=== PATIENT | female | born 1945 | race Caucasian/White ===

== ENCOUNTER → 2016-08-24 | Outpatient (CLI) | payer MEDICARE ==
--- NOTE | 2016-08-27 09:10 | MM ---
Reason for exam: screening (asymptomatic). Last mammogram was performed 1 year and 3 months ago. History: Patient is postmenopausal and is nulliparous. Took hormonal contraceptives for 5 years beginning at age 25. Took estrogen for 2 years beginning at age 54. Took progesterone for 2 years beginning at age 54. Physical Findings: A clinical breast exam by your physician is recommended on an annual basis and results should be correlated with mammographic findings. MG Screening Mammo w CAD Bilateral CC and MLO view(s) were taken. Prior study comparison: May 13, 2015, bilateral MG screening mammo w CAD. March 02, 2013, bilateral digital screening mammo w/CAD. The breast tissue is heterogeneously dense. This may lower the sensitivity of mammography. There is no discrete abnormality. No significant changes when compared with prior studies. ASSESSMENT: Negative, BI-RAD 1 RECOMMENDATION: Routine screening mammogram of both breasts in 1 year.
== END | disposition home or self-care (01) ==
LOC: RADMAMWWP 10:52
PROVIDERS: ATTEND Family Medicine
DX: Z12.31 Encounter for screening mammogram for malignant neoplasm of breast (principal)

== ENCOUNTER → 2017-11-19 | Outpatient (CLI) | payer MEDICARE ==
--- NOTE | 2017-11-20 06:05 | CT ---
EXAMINATION TYPE: CT chest wo con DATE OF EXAM: 11/19/2017 COMPARISON: NONE HISTORY: 72-year-old female Enlarged lymph nodes on cxr. TECHNIQUE: Contiguous axial scanning of the chest without IV contrast. Coronal and sagittal reconstru ctions performed. CT DLP: 159.1 mGycm Automated exposure control for dose reduction was used. FINDINGS: The heart is normal size without pericardial effusion. Aorta is normal caliber with bovine configuration to the aortic arch and mild atherosclerotic arch ca lcifications. 4.3 cm large hypodense nodule right lower thyroid gland and 1.7 cm in the left lobe of the thyroid gl and. There is right supraclavicular lymphadenopathy measuring up to 1.0 cm, numerous right axillary lympha denopathy measuring up to 1.4 cm, lesser degree of left axillary lymphadenopathy measuring 1.2 cm, an d mediastinal lymphadenopathy. This measures 2.7 cm in the prevascular space, 3.5 x 4.5 cm along the right paratracheal region, and 1.9 cm in the subcarinal region. Numerous additional lymph nodes are p resent. Incidental small lipoma deep to the left pectoralis major measuring 3.8 x 0.9 cm. Evaluation of the lung shows no consolidation or pleural effusion. There is a 5 mm anterior right mid lung pulmonary nodule axial image 31 and a 6 mm subpleural right middle lobe pulmonary nodule axial i mage 33. Visualized upper abdomen shows an indeterminate 1.4 cm hypodense lesion right lobe of the liver. Enla rged 1 cm right retrocrural lymph node. Splenomegaly at 18.0 cm. There is mild diffuse anasarca type changes noted. Bones: No osseous destructive process. IMPRESSION: 1. RIGHT SUPRACLAVICULAR, BILATERAL AXILLARY, MEDIASTINAL, AND RIGHT RETROCRURAL LYMPHADENOPATHY. LYM PH NODES MEASURE UP TO 4.5 X 3.5 CM ALONG THE RIGHT PARATRACHEAL REGION. 2. LARGE HYPODENSE LESIONS WITHIN THE RIGHT AND LEFT LOBES OF THE THYROID GLAND MEASURING 4.3 AND 1.7 CM, RESPECTIVELY. 3. SPLENOMEGALY AT 18.0 CM. A 1.4 CM RIGHT LIVER LOBE LESION IS INDETERMINATE. 4. CORRELATE FOR LYMPHOMA OR METASTATIC DISEASE. THYROID ULTRASOUND CAN FURTHER ASSESS THE THYROID GL AND FOR POSSIBLE LYMPHOMATOUS INVOLVEMENT OR SEPARATE LESIONS. 5. A COUPLE PULMONARY NODULES ON THE RIGHT MEASURING 6 AND 5 MM CAN BE REASSESSED AT THE PATIENT'S FO LLOW-UP.
== END | disposition home or self-care (01) ==
LOC: RADCTMAIN 17:21
PROVIDERS: ATTEND Family Medicine
DX: R59.0 Localized enlarged lymph nodes (principal); R91.8 Other nonspecific abnormal finding of lung field
CPT/HCPCS: 71250

== ENCOUNTER 2017-12-05 11:25 | Day surgery (SDC) | payer MEDICARE ==
[2017-12-04 14:26] VITALS: BMI 23.6
[~2017-12-05 11:25] MED LIST: HEPARIN SODIUM,PORCINE 5,000 UNIT/ML 1 ML VIAL SQ ONE; HYDROmorphone 0.5 MG/0.5 ML SYRINGE IVP PRN; LACTATED RINGERS 1,000 ML IV SCH; MORPHINE SULFATE 4 MG/ML SYRINGE IV PRN; ONDANSETRON 4 MG/2 ML VIAL IVP PRN; Pre Op ABX Message 1 EACH MISC MISCELLANE ONE
[2017-12-05 12:08] LABS: Glucose,Whole Blood 106 mg/dL (75-99)
[2017-12-05] MEDS ORDERED: PROPOFOL 10 MG/ML 20 ML VIAL IV ONE (12:57)
[2017-12-05] MEDS ORDERED: SUCCINYLCHOLINE CHLORIDE 100 MG/5 ML SYR IV ONE (12:57)
[2017-12-05] MEDS ORDERED: fentaNYL (PF) 50 MCG/ML 2 ML AMP ONE (12:57)
[2017-12-05] MEDS ORDERED: BUPIVACAINE (PF) 0.25% 30 ML VIAL SQ ONE ×2 (13:23)
[2017-12-05 14:20] VITALS: TEMP 97
[2017-12-05 14:26] LABS: Glucose,Whole Blood 108 mg/dL (75-99)
[2017-12-05] MEDS ORDERED: traMADol 50 MG TAB PO PRN (14:28)
[2017-12-05] MEDS ORDERED: NALOXONE 0.4 MG/ML 1 ML VIAL IV PRN (14:28)
--- NOTE | 2017-12-05 14:32 | P.OP ---
Date of Procedure: 12/05/17 Procedure(s) Performed: PREOPERATIVE DIAGNOSIS: Lymphadenopathy, anemia, GI bleed POSTOPERATIVE DIAGNOSIS: Lymphadenopathy, mild gastritis, normal colonoscopy PROCEDURE: 1. Right axillary lymph node dissection 2. EGD with biopsy 3. Colonoscopy ANESTHESIA: Gen. SURGEON: Raheel Fletcher M.D. SPECIMENS: Lymph node, antrum ENDOSCOPIC PROCEDURE: The patient was on the operating room table in the supine position. She was placed under general anesthesia. The right axilla was prepped and draped in the usual sterile fashion. The palpable lymph node was identified. A small horizontal incision was made. Dissection through the subcutaneous tissues took place using electrocautery. The enlarged lymph node was removed. Small lymphatics and vessels were clipped using the Ligaclip. The subcutaneous tissues were closed using 3-0 Vicryl sutures. The skin was closed using 4-0 Monocryl sutures. Steri-Strips and sterile dressings were applied. The patient was then placed in the left decubitus position. The Olympus gastroscope was inserted into the oropharynx and passed under direct visualization to the region of the third portion of the duodenum. From that point the scope was slowly withdrawn inspecting all surfaces carefully. There were no neoplastic inflammatory or polypoid lesions throughout the duodenum. The pylorus was widely patent. The stomach was carefully inspected. There was mild gastritis present. A biopsy of the antrum took place to rule out H. pylori. Retroflexion revealed a normal hiatus. The esophagus was then carefully examined. There were no neoplastic inflammatory or polypoid lesions throughout the visualized esophagus. The patient was kept on the endoscopy table in the left decubitus position. The Olympus colonoscope was inserted into the anus and passed under direct visualization to the base of the cecum. The appendiceal orifice was visualized. From that point the scope was slowly withdrawn inspecting all surfaces carefully. There were no neoplastic inflammatory or polypoid lesions throughout the cecum, ascending, transverse, descending, sigmoid and rectum. There was no diverticulosis noted. Digital rectal examination was normal. The patient was taken to the recovery room in stable condition per anesthesia guidelines. RECOMMENDATIONS: Await biopsy results. Follow-up in the office 1 week.
[2017-12-05 15:14] VITALS: RESP 18
[2017-12-05 15:30] VITALS: BP 104/67; PULSE 92
--- NOTE | 2017-12-16 11:44 | CDI ---
Outpatient Documentation Clarification Form Date: 12/16/17 CDS/Website Optimization Strategist Name: Prudence Contreras Phone: If any questions, call Niurka Seals Abstract Searcher at [phone] Patient Name: Rosetta Garcia Admit Date: 12/05/17 Discharge Date: 12/05/17 ATTENTION: The [facility] Coding Staff appreciate your assistance in clarifying documentation. Please respond to the clarification below the line at the bottom and electronically sign. The [facility] Coding staff will review the response and follow-up if needed. Please note: Queries are made part of the Legal Health Record. If you have any questions, please contact the Abstract Searcher. Dear Dr. Fletcher, What is the cause of the GI bleed? Thank you for your kind consideration. If I do not state specifically what the etiology of the patient's bleeding is during the endoscopy report then that implies that the etiology is unclear MTDD
== END 2017-12-05 16:05 | disposition home or self-care (01) ==
LOC: OR 11:25
PROVIDERS: ATTEND Surgery
DX: C81.14 Nodular sclerosis Hodgkin lymphoma, lymph nodes of axilla and upper limb (principal); K92.2 Gastrointestinal hemorrhage, unspecified; K29.50 Unspecified chronic gastritis without bleeding; L40.9 Psoriasis, unspecified; E11.319 Type 2 diabetes mellitus with unspecified diabetic retinopathy without macular edema; H35.30 Unspecified macular degeneration; M19.90 Unspecified osteoarthritis, unspecified site; Z79.84 Long term (current) use of oral hypoglycemic drugs; Z79.899 Other long term (current) drug therapy; Z88.1 Allergy status to other antibiotic agents; F17.210 Nicotine dependence, cigarettes, uncomplicated
CPT/HCPCS: 38525; 88305; 84132; 88342; 88307; 88341; 45378; 43239; J1644; J2405; J3010; J0330; J2704

== ENCOUNTER → 2017-12-07 | Outpatient (CLI) | payer MEDICARE ==
--- NOTE | 2017-12-07 17:04 | PE ---
EXAMINATION TYPE: PET CT fusion skull to thigh DATE OF EXAM: 12/07/2017 COMPARISON: CT chest November 19, 2017 HISTORY: Lymphoma initially diagnosed by biopsy right axilla December 05. TECHNIQUE: Following the intravenous administration of 9.05 mCi of F-18 FDG, whole body images are p erformed from the skull base to the midthigh. Images are reviewed on the computer in the coronal, ax ial, and sagittal planes. Reconstructed rotating images are created on independent workstation and r eviewed on the computer. A noncontrast CT is performed in conjunction with the PET scan. SCAN: Initial Scan FINDINGS: SKULL BASE AND NECK: There are multiple enlarged right-sided hypermetabolic lymph nodes, for referen ce there is anterior 1.3 x 1.2 cm lymph node at level of hyoid bone axial image 44 with max SUV of 5. 21. There are additional subcentimeter mildly hypermetabolic left-sided neck lymph nodes anteriorly a nd posteriorly, max SUV is 2.5 axial image 31. There is hypermetabolic right-sided supraclavicular ad enopathy, max SUV is 3.8 axial image 56. CHEST, MEDIASTINUM, AND HILAR REGION: There is air and surgical clips from excisional biopsy right ax illary region. There are mildly hypermetabolic bilateral axillary lymph nodes , for reference is 1.4 x 1.0 cm lymph node axial image 73 with max SUV of 2.62. For reference there is 10 by 8mm hypermetabo lic lymph node inferior left axilla axial image 82 with max SUV of 3.73. There are hypermetabolic thoracic lymph nodes including bilateral hilar levels axial image 95, as wel l as marked involvement of the anterior superior mediastinum and paratracheal region, for reference t here is confluent paratracheal adenopathy measuring roughly 3.3 x 2.3 cm axial image 78 with max SUV of 4.53. ABDOMEN AND PELVIS: Marked splenomegaly is seen. Liver is also felt mildly enlarged. No distinct susp icious focal hypermetabolic increase uptake is present. There is suspicious groin adenopathy bilaterally, right larger than left, largest lymph node superior ly measures 2.5 to 1.7 cm axial image 205, max SUV is 5.17. There is abnormal right external iliac ch ain adenopathy at this level, max SUV is 6.48. There is abnormal left external iliac chain lymph node , for reference axial image 205 there is 2.2 x 1.4 cm lymph node with max SUV of 4.42. OSSEOUS STRUCTURES: Diffuse osseous involvement is felt present as there are multifocal areas of hype rmetabolic uptake throughout the bones including entire spine both humeri and femurs. For reference m arked uptake at level of the clivus axial image 17 is seen, max SUV is 8.2. OTHER CT: There is 3.0 cm right thyroid nodule without hypermetabolic uptake axial image 59. Consider dedicated thyroid ultrasound follow-up to further evaluate. Additional scattered smaller thyroid nod ules are present. There is left basilar linear scarring or atelectasis. There is nonspecific 1.6 cm low dense lesion right liver axial image 122 posterior aspect. There are 2 large rim calcified gallstones in gallbladder. There is prominent lobulated uterus with calcifications suggesting fibroid type uterus. IMPRESSION: There is lymphoma or neoplastic involvement above and below diaphragm with prominent invo lvement of neck, thorax, and pelvis noted. Hepatosplenomegaly is seen. Diffuse osseous involvement is felt present. Relative sparing of abdomen noted.
== END ==
LOC: RADPETMAIN 13:04
PROVIDERS: ATTEND Internal Medicine Hematology & Oncology
DX: C85.94 Non-Hodgkin lymphoma, unspecified, lymph nodes of axilla and upper limb (principal); R16.2 Hepatomegaly with splenomegaly, not elsewhere classified
CPT/HCPCS: 78815; A9552

== ENCOUNTER 2017-12-19 10:44 | Day surgery (SDC) | payer MEDICARE ==
[~2017-12-19 10:44] MED LIST changes: -HYDROmorphone 0.5 MG/0.5 ML SYRINGE IVP PRN; -LACTATED RINGERS 1,000 ML IV SCH; -MORPHINE SULFATE 4 MG/ML SYRINGE IV PRN; -ONDANSETRON 4 MG/2 ML VIAL IVP PRN
[2017-12-19 11:08] VITALS: RESP 16; TEMP 98.2
[2017-12-19] MEDS ORDERED: DEXAMETHASONE SOD PHOSPHATE 10 MG/ML 1 ML VIAL IV ONE (11:10)
[2017-12-19] MEDS ORDERED: LACTATED RINGERS 1,000 ML IV SCH (11:10)
[2017-12-19] MEDS ORDERED: MORPHINE SULFATE 4 MG/ML SYRINGE IV PRN (11:10)
[2017-12-19] MEDS ORDERED: ONDANSETRON ODT 4 MG TAB PO ONE (11:10)
[2017-12-19] MEDS ORDERED: LIDOCAINE 1% 20 ML VIAL (10MG/ML) FOR IV START INTRADERMA ONE ×2 (11:40)
[2017-12-19 11:41] LABS: Glucose,Whole Blood 105 mg/dL (75-99)
[2017-12-19] MEDS ORDERED: KETAMINE 10 MG/ML 20 ML VIAL ONE (12:40)
[2017-12-19] MEDS ORDERED: PROPOFOL 10 MG/ML 20 ML VIAL IV ONE (12:40)
[2017-12-19] MEDS ORDERED: fentaNYL (PF) 50 MCG/ML 2 ML AMP ONE (12:40)
[2017-12-19] MEDS ORDERED: MIDAZOLAM 2 MG/2 ML VIAL ONE (12:40)
--- NOTE | 2017-12-19 13:14 | P.GSHP ---
History of Present Illness H&P Date: 12/19/17 Chief Complaint: Lymphoma 72-year-old female with recent diagnosis of Hodgkin's lymphoma. Underwent bone marrow biopsy today. Here now for Port-A-Cath placement. We recently removed a right axillary lymph node. At the time of her postoperative visit last week we discussed Port-A-Cath placement. Past Medical History Past Medical History: Diabetes Mellitus, Osteoarthritis (OA), Skin Disorder Additional Past Medical History / Comment(s): swollen lymphnode rt axilla and neck,anemia-recent iron infusion on 12-03-17 and schedule for repeated iron infusion on 12-09-17, recent tooth infection, DRY MACULAR DEGENERATION., HX OF COLON POLYPS,psoriasis History of Any Multi-Drug Resistant Organisms: None Reported Date of last positivie culture/infection: 03/13/17 MDRO Source:: finger Past Surgical History: Appendectomy Additional Past Surgical History / Comment(s): APPENDECTOMY (CHILD), D & C, COLONOSCOPY Past Anesthesia/Blood Transfusion Reactions: No Reported Reaction, Family History of Problems w/ Anesthesia Additional Past Anesthesia/Blood Transfusion Reaction / Comment(s): SISTER-PONV Past Psychological History: No Psychological Hx Reported Smoking Status: Current every day smoker Past Alcohol Use History: None Reported Additional Past Alcohol Use History / Comment(s): SMOKES < 1PPD. SMOKING SINCE 20 YEARS OLD (52 YEARS) Past Drug Use History: None Reported - Past Family History Mother Family Medical History: No Reported History Medications and Allergies Home Medications Medication Instructions Recorded Confirmed Type metFORMIN HCL [Glucophage] 500 mg PO AC-BID 03/01/16 12/19/17 History ALPRAZolam [Xanax] 0.5 mg PO TID PRN 12/04/17 12/19/17 History Cholecalciferol [Vitamin D3] 1,000 unit PO BID 12/04/17 12/19/17 History Clobetasol Propionate [Temovate 1 applic TOPICAL BID 12/04/17 12/19/17 History 0.05% Oint] Ferrous Sulfate [Feosol] 325 mg PO DAILY 12/04/17 12/19/17 History Vit C/E/Zn/Coppr/Lutein/Zeaxan 1 each PO BID 12/04/17 12/19/17 History [Preservision Areds 2 Softgel] Acetaminophen with Codeine 1 tab PO Q4H #10 tab 12/05/17 12/19/17 Rx [Tylenol w/codeine #3] Allergies Allergy/AdvReac Type Severity Reaction Status Date / Time cephalexin monohydrate AdvReac Unknown YEAST Verified 12/19/17 11:18 [From Keflex] INFECTION Surgical - Exam Vital Signs Temp Pulse Resp BP Pulse Ox 98.2 F 72 16 99/59 100 12/19/17 11:07 12/19/17 11:07 12/19/17 11:07 12/19/17 11:07 12/19/17 11:07 Physical exam: General: Well-developed, well-nourished HEENT: Normocephalic, sclerae nonicteric Abdomen: Nontender, nondistended Extremities: No edema Neuro: Alert and oriented Results - Labs Abnormal Lab Results - Last 24 Hours (Table) 12/19/17 Range/Units 11:39 POC Glucose (mg/dL) 105 H (75-99) mg/dL Assessment and Plan (1) Lymphoma Narrative/Plan: Will proceed with Port-A-Cath placement at this time. Current Visit: Yes Status: Acute Code(s): C85.90 - NON-HODGKIN LYMPHOMA, UNSPECIFIED, UNSPECIFIED SITE SNOMED Code(s): 697761968
[2017-12-19 13:17] LABS: Anisocytosis Slight; Basophils % (A) 0 %; Eosinophils % (A) 0 %; HCT 31.1 % (34.0-46.0); HGB 9.7 gm/dL (11.4-16.0); Hypochromasia Slight; Lymphocytes # (A) 0.8 k/uL (1.0-4.8); Lymphocytes % (A) 8 %; MCH 23.3 pg (25.0-35.0); MCHC 31.2 g/dL (31.0-37.0); MCV 74.5 fL (80.0-100.0); Mean Platelet Volume 6.6; Microcytosis Moderate; Monocytes # (A) 0.5 k/uL (0-1.0); Monocytes % (A) 5 %; Neutrophils # (A) 8.4 k/uL (1.3-7.7); Neutrophils % (A) 85 %; Platelet Count 394 k/uL (150-450); RBC 4.18 m/uL (3.80-5.40); RDW 18.2 % (11.5-15.5); WBC 9.8 k/uL (3.8-10.6)
[2017-12-19] MEDS ORDERED: LIDOCAINE 1% INJ 10MG/ML (20 ML MDV) SQ ONE ×2 (13:29)
[2017-12-19] MEDS ORDERED: HYDROcodone/APAP 5-325MG 1 EACH TAB PO PRN (13:47)
[2017-12-19] MEDS ORDERED: NALOXONE 0.4 MG/ML 1 ML VIAL IV PRN (13:47)
--- NOTE | 2017-12-19 13:49 | P.OP ---
Date of Procedure: 12/19/17 Procedure(s) Performed: PREOPERATIVE DIAGNOSIS: Lymphoma POSTOPERATIVE DIAGNOSIS: Same PROCEDURE: Port-A-Cath placement SURGEON: Chance EBL: Minimal ANESTHESIA: Sedation COMPLICATIONS: None OPERATIVE PROCEDURE: Patient was brought and placed on the operative table in the supine position. The patient was sedated per anesthesia that time. The chest and neck were prepped and draped in usual sterile fashion. The ultrasound probe was used to identify the location of the right internal jugular vein. The skin was localized with lidocaine. The Seldinger needle was advanced into the IJ under ultrasound guidance. The wire was advanced through the needle under fluoroscopic guidance into the superior vena cava. A port pocket was created in the right infraclavicular location. The catheter was tunneled from the wire entrance site to the port pocket. The port was then connected to the catheter. The dilator introducer was threaded over the guidewire. The guidewire and dilator were then removed. The catheter was advanced through the introducer and introducer was then removed. The tip was seen to be in the right atrial junction. Port was flushed with both saline and a Hep-Lock solution. There was good flow both in and out of the port. The port was sutured in underlying tissues using 3-0 silk sutures. The subcutaneous tissues were reapproximated using 3-0 Vicryl sutures and the skin at both locations using 4-0 Monocryl sutures. Steri-Strips and sterile dressings then applied. DISPOSITION: Stable to recovery room
--- NOTE | 2017-12-19 14:04 | FL ---
Fluoroscopy HISTORY: Port-A-Cath insertion 15 seconds fluoroscopy time supplied to the referring clinician. 1 intraoperative C-arm image docume nts the procedure. See dictated report from general surgery.
[2017-12-19 14:10] LABS: Glucose,Whole Blood 133 mg/dL (75-99)
--- NOTE | 2017-12-19 14:10 | XR ---
EXAMINATION TYPE: XR chest 1V confirm line [facility] DATE OF EXAM: 12/19/2017 COMPARISON: NONE HISTORY: Status post central venous catheter placement, lymphoma TECHNIQUE: Single frontal view of the chest is obtained. FINDINGS: Patient is rotated. There is been placement of a right jugular central venous catheter, dis willian tip is overlying superior vena cava. No evident pneumothorax or pleural effusion. Lung volumes ar e low. Surgical clips present in the right axilla. IMPRESSION: No evident complication status post central venous catheter placement.
[2017-12-19 14:47] VITALS: BP 105/68; PULSE 79
--- NOTE | 2017-12-19 15:04 | PCN ---
PROCEDURE NOTE DATE OF PROCEDURE: 12/19/2017. PROCEDURE: Bone marrow aspirate and biopsy. SITE: Right iliac crest. ANESTHESIA: Systemic sedation. PREOP DIAGNOSIS: Hodgkin disease. POSTOP DIAGNOSIS: Hodgkin disease. DETAILS: Utilizing sterile technique, the skin overlying the left iliac crest was prepared with Betadine and alcohol. After adequate sterile draping, systemic sedation and local anesthesia with 1% lidocaine, size 11 4-inch Jamshidi needle was utilized to access the periosteum with ease and 2 attempts to obtain aspirate failed. We obtained however 1 cm crest bone core biopsies. The patient tolerated the procedure well. There was no immediate complication. TOTAL BLOOD LOSS: Less than 1 mL. RESULTS: Pending. MMODL / IJN: [id number] /
== END 2017-12-19 15:10 | disposition home or self-care (01) ==
LOC: OR 10:44
PROVIDERS: ATTEND Surgery
DX: C81.96 Hodgkin lymphoma, unspecified, intrapelvic lymph nodes (principal); E11.9 Type 2 diabetes mellitus without complications; M19.90 Unspecified osteoarthritis, unspecified site; L40.9 Psoriasis, unspecified; F17.210 Nicotine dependence, cigarettes, uncomplicated; H35.30 Unspecified macular degeneration; Z88.1 Allergy status to other antibiotic agents; Z79.84 Long term (current) use of oral hypoglycemic drugs; Z79.899 Other long term (current) drug therapy; Z85.72 Personal history of non-Hodgkin lymphomas
CPT/HCPCS: 85025; 77001; 38222; 36561; C1788; J2250; J1644; J1100; J2001; J3010; J2704

== ENCOUNTER → 2017-12-24 | Outpatient (CLI) | payer MEDICARE ==
--- NOTE | 2017-12-24 11:38 | ECHOF ---
Referral Reason:C81.98 Hodgkin lymphoma, Z01.818 Pre-chemo MEASUREMENTS -------- HEIGHT: 156.2 cm WEIGHT: 54.9 kg BP: 115/75 RVIDd: 3.1 cm (< 3.3) IVSd: 1.0 cm (0.6 - 1.1) LVIDd: 4.9 cm (3.9 - 5.3) LVPWd: 0.9 cm (0.6 - 1.1) IVSs: 1.5 cm LVIDs: 3.2 cm LVPWs: 1.4 cm LA Diam: 3.5 cm (2.7 - 3.8) LAESV Index (A-L): 22.63 ml/m Ao Diam: 2.8 cm (2.0 - 3.7) AV Cusp: 2.0 cm (1.5 - 2.6) MV EXCURSION: 17.570 mm (> 18.000) MV EF SLOPE: 157 mm/s (70 - 150) EPSS: 0.7 cm MV E Heath: 0.88 m/s MV DecT: 208 ms MV A Heath: 1.02 m/s MV E/A Ratio: 0.87 RAP: 5.00 mmHg RVSP: 28.98 mmHg FINDINGS -------- Sinus rhythm. This was a technically good study. The left ventricular size is normal. Left ventricular wall thickness is normal. Overall left vent ricular systolic function is normal with, an EF between 55 - 60 %. The right ventricle is normal in size. Normal LA size by volume 22+/-6 ml/m2. The right atrium is normal in size. Small echogenic mass was seen in the right atrium. TERRI is recom mended for better clarification. The aortic valve is trileaflet and appears structurally normal. There is trace mitral regurgitation. Mild tricuspid regurgitation present. Right ventricular systolic pressure is normal at < 35 mmHg. Trace/mild (physiologic) pulmonic regurgitation. The aortic root size is normal. Normal inferior vena cava with normal inspiratory collapse consistent with estimated right atrial pre ssure of 5 mmHg. There is no pericardial effusion. CONCLUSIONS -------- 1. Sinus rhythm. 2. This was a technically good study. 3. The left ventricular size is normal. 4. Left ventricular wall thickness is normal. 5. Overall left ventricular systolic function is normal with, an EF between 55 - 60 %. 6. The right ventricle is normal in size. 7. Normal LA size by volume 22+/-6 ml/m2. 8. The right atrium is normal in size. 9. Small echogenic mass was seen in the right atrium. TERRI is recommended for better clarification. 10. The aortic valve is trileaflet and appears structurally normal. 11. There is trace mitral regurgitation. 12. Mild tricuspid regurgitation present. 13. Right ventricular systolic pressure is normal at < 35 mmHg. 14. Trace/mild (physiologic) pulmonic regurgitation. 15. The aortic root size is normal. 16. Normal inferior vena cava with normal inspiratory collapse consistent with estimated right atrial pressure of 5 mmHg. 17. There is no pericardial effusion. CLINIC SUPERVISOR: Albina Wynne RDCS
== END | disposition home or self-care (01) ==
LOC: RADECHMAIN 10:18
PROVIDERS: ATTEND Internal Medicine Hematology & Oncology
DX: Z01.818 Encounter for other preprocedural examination (principal); C81.90 Hodgkin lymphoma, unspecified, unspecified site; L98.9 Disorder of the skin and subcutaneous tissue, unspecified; I08.1 Rheumatic disorders of both mitral and tricuspid valves
CPT/HCPCS: 93306

== ENCOUNTER 2018-01-19 00:02 | Inpatient (IN) | payer MEDICARE ==
--- NOTE | 2018-01-19 00:13 | ED ---
Altered Mental Status HPI - General Chief Complaint: Altered Mental Status Stated Complaint: Altered Mental Status Time Seen by Provider: 01/19/18 00:05 Source: patient, EMS Mode of arrival: EMS Limitations: altered mental status - History of Present Illness Initial Comments: This patient is 72-year-old woman who is brought in by EMS after she had an episode in which she became unresponsive. The patient was not able to provide any history she did not remember much prior to arriving at the hospital. The patient's described that she had some rigidity and was making some sounds as if she was gagging or gurgling. He states it looked like her eyes had rolled back. The activated EMS, and then the family was attempting to provide CPR for the patient. It was reported that one certified surgical first assistant arrived the patient was attempting to move while family was attempting to provide CPR. When EMS arrived, they did have a rhythm on the monitor and detectable vital signs. When I interview the patient, she is denying chest pain. She states that her breathing seems adequate. She is oriented to person and place but does not of the date at her arrival. MD Complaint: altered mental status -: minutes(s) Severity: severe Context: cancer - Related Data Home Medications Medication Instructions Recorded Confirmed metFORMIN HCL [Glucophage] 500 mg PO AC-BID 03/01/16 01/19/18 ALPRAZolam [Xanax] 0.5 mg PO TID PRN 12/04/17 01/19/18 Cholecalciferol [Vitamin D3] 1,000 unit PO BID 12/04/17 01/19/18 Ferrous Sulfate [Feosol] 325 mg PO DAILY 12/04/17 01/19/18 Vit C/E/Zn/Coppr/Lutein/Zeaxan 1 each PO BID 12/04/17 01/19/18 [Preservision Areds 2 Softgel] Prochlorperazine [Compazine] 10 mg PO Q6H 01/19/18 01/19/18 Allergies Allergy/AdvReac Type Severity Reaction Status Date / Time cephalexin monohydrate AdvReac Unknown YEAST Verified 01/19/18 12:08 [From Keflex] INFECTION Review of Systems ROS Statement: Those systems with pertinent positive or pertinent negative responses have been documented in the HPI. ROS Other: All systems not noted in ROS Statement are negative. Constitutional: Denies: fever, weakness Eyes: Denies: vision change Respiratory: Denies: cough, dyspnea Cardiovascular: Denies: chest pain, orthopnea, edema Gastrointestinal: Denies: abdominal pain, nausea, vomiting, diarrhea Musculoskeletal: Denies: back pain Skin: Denies: rash Neurological: Reports: other (Possible seizure). Denies: headache, weakness, numbness Past Medical History Past Medical History: Diabetes Mellitus, Osteoarthritis (OA), Skin Disorder Additional Past Medical History / Comment(s): swollen lymphnode rt axilla and neck,anemia-recent iron infusion on 12-03-17 and schedule for repeated iron infusion on 12-09-17, recent tooth infection, DRY MACULAR DEGENERATION., HX OF COLON POLYPS,psoriasis, hodgkins lymphoma History of Any Multi-Drug Resistant Organisms: None Reported Date of last positivie culture/infection: 03/13/17 MDRO Source:: finger Past Surgical History: Appendectomy Additional Past Surgical History / Comment(s): APPENDECTOMY (CHILD), D & C, COLONOSCOPY Past Anesthesia/Blood Transfusion Reactions: No Reported Reaction, Family History of Problems w/ Anesthesia Additional Past Anesthesia/Blood Transfusion Reaction / Comment(s): SISTER-PONV Past Psychological History: Depression Smoking Status: Former smoker Past Alcohol Use History: None Reported Past Drug Use History: None Reported - Past Family History Mother Family Medical History: No Reported History General Exam Limitations: altered mental status General appearance: alert, in no apparent distress Head exam: Present: atraumatic, normocephalic Eye exam: Present: normal appearance, PERRL, EOMI. Absent: scleral icterus, conjunctival injection, nystagmus ENT exam: Present: normal exam Neck exam: Present: normal inspection, full ROM. Absent: tenderness, meningismus Respiratory exam: Present: normal lung sounds bilaterally. Absent: respiratory distress, wheezes, rales, rhonchi, stridor Cardiovascular Exam: Present: regular rate, normal rhythm, normal heart sounds. Absent: systolic murmur, diastolic murmur, rubs, gallop GI/Abdominal exam: Present: soft. Absent: distended, tenderness, guarding, rebound Extremities exam: Present: normal inspection, normal capillary refill. Absent: pedal edema, calf tenderness Back exam: Present: normal inspection. Absent: CVA tenderness (R), CVA tenderness (L) Neurological exam: Present: alert, CN II-XII intact. Absent: oriented X3 ( Patient is oriented to person and place not able to state the date however.), motor sensory deficit Skin exam: Present: warm, dry, intact, normal color. Absent: rash Course Vital Signs 01/19/18 01/19/18 01/19/18 00:04 00:48 02:10 Pulse Rate 66 67 63 Respiratory 18 18 18 Rate Blood Pressure 145/83 162/77 152/70 O2 Sat by Pulse 99 100 100 Oximetry 01/19/18 03:50 Pulse Rate 74 Respiratory 18 Rate Blood Pressure 151/75 O2 Sat by Pulse 100 Oximetry Medical Decision Making - Medical Decision Making Patient is 72-year-old woman who is currently receiving treatment for lymphoma and brought after she had become unresponsive at home. At this point it appears that the patient has possibly had a seizure. Will be admitted for further workup and neurology consultation as well. - Lab Data Result diagrams: 01/19/18 00:10 01/19/18 00:10 Lab Results 01/19/18 01/19/18 01/19/18 Range/Units 00:10 00:10 00:10 WBC 3.8 (3.8-10.6) k/uL RBC 5.12 (3.80-5.40) m/uL Hgb 12.4 (11.4-16.0) gm/dL Hct 38.4 (34.0-46.0) % MCV 75.0 L (80.0-100.0) fL MCH 24.3 L (25.0-35.0) pg MCHC 32.3 (31.0-37.0) g/dL RDW 19.5 H (11.5-15.5) % Plt Count 208 (150-450) k/uL Neutrophils % 57 % Lymphocytes % 33 % Monocytes % 3 % Eosinophils % 4 % Basophils % 0 % Neutrophils # 2.1 (1.3-7.7) k/uL Lymphocytes # 1.2 (1.0-4.8) k/uL Monocytes # 0.1 (0-1.0) k/uL Eosinophils # 0.2 (0-0.7) k/uL Basophils # 0.0 (0-0.2) k/uL Anisocytosis Slight Microcytosis Moderate PT (9.0-12.0) sec INR (<1.2) APTT (22.0-30.0) sec Sodium 130 L (137-145) mmol/L Potassium 3.8 (3.5-5.1) mmol/L Chloride 95 L (98-107) mmol/L Carbon Dioxide 21 L (22-30) mmol/L Anion Gap 14 mmol/L BUN 12 (7-17) mg/dL Creatinine 0.30 L (0.52-1.04) mg/dL Est GFR (CKD-EPI)AfAm >90 (>60 ml/min/1.73 sqM) Est GFR (CKD-EPI)NonAf >90 (>60 ml/min/1.73 sqM) Glucose 188 H (74-99) mg/dL POC Glucose (mg/dL) (75-99) mg/dL POC Glu Flask Maker ID Lactic Ac Sepsis Rflx Plasma Lactic Acid Rio (0.7-2.0) mmol/L Calcium 8.9 (8.4-10.2) mg/dL Total Bilirubin 0.6 (0.2-1.3) mg/dL AST 30 (14-36) U/L ALT 45 (9-52) U/L Alkaline Phosphatase 93 (38-126) U/L Total Creatine Kinase <20 L (30-135) U/L CK-MB (CK-2) 0.6 (0.0-2.4) ng/mL CK-MB (CK-2) Rel Index Troponin I <0.012 (0.000-0.034) ng/mL Total Protein 7.3 (6.3-8.2) g/dL Albumin 3.9 (3.5-5.0) g/dL Urine Color Urine Appearance (Clear) Urine pH (5.0-8.0) Ur Specific Neffs (1.001-1.035) Urine Protein (Negative) Urine Glucose (UA) (Negative) Urine Ketones (Negative) Urine Blood (Negative) Urine Nitrite (Negative) Urine Bilirubin (Negative) Urine Urobilinogen (<2.0) mg/dL Ur Leukocyte Esterase (Negative) Urine RBC (0-5) /hpf Urine WBC (0-5) /hpf Amorphous Sediment (None) /hpf Hyaline Casts (0-2) /lpf Urine Mucus (None) /hpf Urine Opiates Screen (NotDetected) Ur Oxycodone Screen (NotDetected) Urine Methadone Screen (NotDetected) Ur Propoxyphene Screen (NotDetected) Ur Barbiturates Screen (NotDetected) U Tricyclic Antidepress (NotDetected) Ur Phencyclidine Scrn (NotDetected) Ur Amphetamines Screen (NotDetected) U Methamphetamines Scrn (NotDetected) U Benzodiazepines Scrn (NotDetected) Urine Cocaine Screen (NotDetected) U Marijuana (THC) Screen (NotDetected) 01/19/18 01/19/18 01/19/18 Range/Units 00:10 00:10 00:11 WBC (3.8-10.6) k/uL RBC (3.80-5.40) m/uL Hgb (11.4-16.0) gm/dL Hct (34.0-46.0) % MCV (80.0-100.0) fL MCH (25.0-35.0) pg MCHC (31.0-37.0) g/dL RDW (11.5-15.5) % Plt Count (150-450) k/uL Neutrophils % % Lymphocytes % % Monocytes % % Eosinophils % % Basophils % % Neutrophils # (1.3-7.7) k/uL Lymphocytes # (1.0-4.8) k/uL Monocytes # (0-1.0) k/uL Eosinophils # (0-0.7) k/uL Basophils # (0-0.2) k/uL Anisocytosis Microcytosis PT 12.3 H (9.0-12.0) sec INR 1.3 H (<1.2) APTT 24.9 (22.0-30.0) sec Sodium (137-145) mmol/L Potassium (3.5-5.1) mmol/L Chloride (98-107) mmol/L Carbon Dioxide (22-30) mmol/L Anion Gap mmol/L BUN (7-17) mg/dL Creatinine (0.52-1.04) mg/dL Est GFR (CKD-EPI)AfAm (>60 ml/min/1.73 sqM) Est GFR (CKD-EPI)NonAf (>60 ml/min/1.73 sqM) Glucose (74-99) mg/dL POC Glucose (mg/dL) 194 H (75-99) mg/dL POC Glu Flask Maker ID Angy Oreilly Lactic Ac Sepsis Rflx Plasma Lactic Acid Rio 2.1 H* (0.7-2.0) mmol/L Calcium (8.4-10.2) mg/dL Total Bilirubin (0.2-1.3) mg/dL AST (14-36) U/L ALT (9-52) U/L Alkaline Phosphatase (38-126) U/L Total Creatine Kinase (30-135) U/L CK-MB (CK-2) (0.0-2.4) ng/mL CK-MB (CK-2) Rel Index Troponin I (0.000-0.034) ng/mL Total Protein (6.3-8.2) g/dL Albumin (3.5-5.0) g/dL Urine Color Urine Appearance (Clear) Urine pH (5.0-8.0) Ur Specific Neffs (1.001-1.035) Urine Protein (Negative) Urine Glucose (UA) (Negative) Urine Ketones (Negative) Urine Blood (Negative) Urine Nitrite (Negative) Urine Bilirubin (Negative) Urine Urobilinogen (<2.0) mg/dL Ur Leukocyte Esterase (Negative) Urine RBC (0-5) /hpf Urine WBC (0-5) /hpf Amorphous Sediment (None) /hpf Hyaline Casts (0-2) /lpf Urine Mucus (None) /hpf Urine Opiates Screen (NotDetected) Ur Oxycodone Screen (NotDetected) Urine Methadone Screen (NotDetected) Ur Propoxyphene Screen (NotDetected) Ur Barbiturates Screen (NotDetected) U Tricyclic Antidepress (NotDetected) Ur Phencyclidine Scrn (NotDetected) Ur Amphetamines Screen (NotDetected) U Methamphetamines Scrn (NotDetected) U Benzodiazepines Scrn (NotDetected) Urine Cocaine Screen (NotDetected) U Marijuana (THC) Screen (NotDetected) 01/19/18 01/19/18 Range/Units 00:44 00:56 WBC (3.8-10.6) k/uL RBC (3.80-5.40) m/uL Hgb (11.4-16.0) gm/dL Hct (34.0-46.0) % MCV (80.0-100.0) fL MCH (25.0-35.0) pg MCHC (31.0-37.0) g/dL RDW (11.5-15.5) % Plt Count (150-450) k/uL Neutrophils % % Lymphocytes % % Monocytes % % Eosinophils % % Basophils % % Neutrophils # (1.3-7.7) k/uL Lymphocytes # (1.0-4.8) k/uL Monocytes # (0-1.0) k/uL Eosinophils # (0-0.7) k/uL Basophils # (0-0.2) k/uL Anisocytosis Microcytosis PT (9.0-12.0) sec INR (<1.2) APTT (22.0-30.0) sec Sodium (137-145) mmol/L Potassium (3.5-5.1) mmol/L Chloride (98-107) mmol/L Carbon Dioxide (22-30) mmol/L Anion Gap mmol/L BUN (7-17) mg/dL Creatinine (0.52-1.04) mg/dL Est GFR (CKD-EPI)AfAm (>60 ml/min/1.73 sqM) Est GFR (CKD-EPI)NonAf (>60 ml/min/1.73 sqM) Glucose (74-99) mg/dL POC Glucose (mg/dL) (75-99) mg/dL POC Glu Flask Maker ID Lactic Ac Sepsis Rflx Y Plasma Lactic Acid Rio (0.7-2.0) mmol/L Calcium (8.4-10.2) mg/dL Total Bilirubin (0.2-1.3) mg/dL AST (14-36) U/L ALT (9-52) U/L Alkaline Phosphatase (38-126) U/L Total Creatine Kinase (30-135) U/L CK-MB (CK-2) (0.0-2.4) ng/mL CK-MB (CK-2) Rel Index Troponin I (0.000-0.034) ng/mL Total Protein (6.3-8.2) g/dL Albumin (3.5-5.0) g/dL Urine Color Yellow Urine Appearance Clear (Clear) Urine pH 7.0 (5.0-8.0) Ur Specific [place]ffs 1.018 (1.001-1.035) Urine Protein 1+ H (Negative) Urine Glucose (UA) Negative (Negative) Urine Ketones Trace H (Negative) Urine Blood Negative (Negative) Urine Nitrite Negative (Negative) Urine Bilirubin Negative (Negative) Urine Urobilinogen <2.0 (<2.0) mg/dL Ur Leukocyte Esterase Negative (Negative) Urine RBC 2 (0-5) /hpf Urine WBC 3 (0-5) /hpf Amorphous Sediment Rare H (None) /hpf Hyaline Casts 1 (0-2) /lpf Urine Mucus Rare H (None) /hpf Urine Opiates Screen Not Detected (NotDetected) Ur Oxycodone Screen Not Detected (NotDetected) Urine Methadone Screen Not Detected (NotDetected) Ur Propoxyphene Screen Not Detected (NotDetected) Ur Barbiturates Screen Not Detected (NotDetected) U Tricyclic Antidepress Not Detected (NotDetected) Ur Phencyclidine Scrn Not Detected (NotDetected) Ur Amphetamines Screen Not Detected (NotDetected) U Methamphetamines Scrn Not Detected (NotDetected) U Benzodiazepines Scrn Not Detected (NotDetected) Urine Cocaine Screen Not Detected (NotDetected) U Marijuana (THC) Screen Not Detected (NotDetected) - EKG Data -: EKG Interpreted by Ca EKG shows normal: sinus rhythm, axis (Normal), intervals (ID interval 128 ms, normal. QTc 521 ms, normal. QRS duration is prolonged at 130 ms.), QRS complexes (Right bundle-branch block), ST-T waves (Normal) Rate: normal (Rate 68 bpm) Disposition Clinical Impression: Altered mental status, New onset seizure Disposition: ADMITTED IP TO THIS [facility] Condition: Serious
[2018-01-19 00:16] LABS: Glucose,Whole Blood 194 mg/dL (75-99)
[2018-01-19] MEDS ORDERED: SODIUM CHLORIDE 0.9% 1,000 ML IV ONE (00:25)
--- NOTE | 2018-01-19 00:34 | XR ---
EXAM: XR Chest, 1 View CLINICAL HISTORY: ITS.REASON XR Reason: Pain TECHNIQUE: Frontal view of the chest. COMPARISON: 12/19/17 IMPRESSION: No acute cardiopulmonary process. Right central line terminates at the cavoatrial junction.
[2018-01-19] MEDS ORDERED: ONDANSETRON 4 MG/2 ML VIAL IVP STA (00:35)
[2018-01-19 00:45] LABS: Anisocytosis Slight; Basophils % (A) 0 %; Eosinophils # (A) 0.2 k/uL (0-0.7); Eosinophils % (A) 4 %; HCT 38.4 % (34.0-46.0); HGB 12.4 gm/dL (11.4-16.0); Lymphocytes # (A) 1.2 k/uL (1.0-4.8); Lymphocytes % (A) 33 %; MCH 24.3 pg (25.0-35.0); MCHC 32.3 g/dL (31.0-37.0); Mean Platelet Volume 6.4; Microcytosis Moderate; Monocytes # (A) 0.1 k/uL (0-1.0); Monocytes % (A) 3 %; Neutrophils # (A) 2.1 k/uL (1.3-7.7); Neutrophils % (A) 57 %; Platelet Count 208 k/uL (150-450); RBC 5.12 m/uL (3.80-5.40); RDW 19.5 % (11.5-15.5); WBC 3.8 k/uL (3.8-10.6)
[2018-01-19 00:47] LABS: ALT 45 U/L (9-52); AST 30 U/L (14-36); Albumin 3.9 g/dL (3.5-5.0); Alkaline Phosphatase 93 U/L (38-126); Anion Gap 14 mmol/L; Blood Urea Nitrogen 12 mg/dL (7-17); Calcium 8.9 mg/dL (8.4-10.2); Carbon Dioxide 21 mmol/L (22-30); Chloride 95 mmol/L (98-107); Glucose 188 mg/dL (74-99); Potassium 3.8 mmol/L (3.5-5.1); Sodium 130 mmol/L (137-145); Total Bilirubin 0.6 mg/dL (0.2-1.3); Total Protein 7.3 g/dL (6.3-8.2)
[2018-01-19 00:49] LABS: INR 1.3 (<1.2); Partial Thromboplastin Time 24.9 sec (22.0-30.0); Prothrombin Time 12.3 sec (9.0-12.0)
[2018-01-19 01:00] LABS: Creatine Kinase <20 U/L (30-135)
[2018-01-19 01:13] LABS: Creatine Kinase MB 0.6 ng/mL (0.0-2.4); Troponin I <0.012 ng/mL (0.000-0.034)
[2018-01-19 01:25] LABS: Amorphous Sediment,Urine Rare /hpf; Appearance,Urine Clear (Clear); Bilirubin,Urine Negative (Negative); Blood,Urine Negative (Negative); Color,Urine Yellow; Glucose,Urine (UA) Negative (Negative); Hyaline Casts,Urine 1 /lpf (0-2); Ketones,Urine Trace (Negative); Leukocyte Esterase,Urine Negative (Negative); Mucus,Urine Rare /hpf; Nitrite,Urine Negative (Negative); Protein,Urine 1+ (Negative); RBC,Urine 2 /hpf (0-5); Specific Gravity,Urine 1.018 (1.001-1.035); Urobilinogen,Urine <2.0 mg/dL (<2.0); WBC,Urine 3 /hpf (0-5)
--- NOTE | 2018-01-19 01:36 | CT ---
EXAM: CT Head Without Intravenous Contrast CLINICAL HISTORY: ITS.REASON CT Reason: altered mental status TECHNIQUE: Axial computed tomography images of the head/brain without intravenous contrast. CTDI is 60 mGy and DLP is 1173 mGy-cm. This CT exam was performed using one or more of the following dose reduction techniques: automated exposure control, adjustment of the mA and/or kV according to patient size, and/or use of iterative reconstruction technique. COMPARISON: No relevant prior studies available. FINDINGS: Brain: No hemorrhage, large hypodensity, or mass effect. Ventricles: No hydrocephalus. Mild cerebral volume loss which appears more frontal dominant. Bones/joints: Unremarkable. Soft tissues: Unremarkable. Sinuses: Unremarkable. Mastoid air cells: Clear. IMPRESSION: No acute hemorrhage, hydrocephalus, or mass effect. Mild cerebral volume loss, more prominent in the frontal brain.
[2018-01-19 01:40] LABS: Amphetamine Screen,Urine Not Detected (NotDetected); Barbiturate Screen,Urine Not Detected (NotDetected); Benzodiazepines Screen,Urine Not Detected (NotDetected); Cocaine Screen,Urine Not Detected (NotDetected); Methadone Screen, Urine Not Detected (NotDetected); Opiate Screen,Urine Not Detected (NotDetected); Oxycodone Screen, Urine Not Detected (NotDetected); Phencyclidine Screen,Urine Not Detected (NotDetected); Tricyclic Antidepressant,Urine Not Detected (NotDetected); Urn Cannabinoid Scrn Not Detected (NotDetected)
[2018-01-19] MEDS ORDERED: NALOXONE 0.4 MG/ML 1 ML VIAL IV PRN (03:09)
[2018-01-19] MEDS ORDERED: IBUPROFEN 400 MG TAB PO PRN (03:09)
[2018-01-19] MEDS: SODIUM CHLORIDE 0.9% 1,000 ML IV SCH ×2 (04:33→11:47)
[2018-01-19 05:55] LABS: Glucose,Whole Blood 108 mg/dL (75-99)
[2018-01-19] MEDS ORDERED: ALPRAZolam 0.5 MG TAB PO PRN (07:58)
[2018-01-19] MEDS: PROCHLORPERAZINE 10 MG TAB PO SCH ×3 (08:35→21:14)
[2018-01-19] MEDS: ACETAMINOPHEN TAB 325 MG TAB PO PRN ×2 (08:40→14:59)
[2018-01-19] MEDS: VIT A,C & E-LUTEIN-MINERALS 1 EACH TAB PO SCH ×2 (08:41→21:14)
[2018-01-19] MEDS: CHOLECALCIFEROL 1,000 UNIT TAB PO SCH ×2 (08:41→21:14)
[2018-01-19] MEDS ORDERED: LORazepam 2 MG/ML INJ IV PRN (11:05)
[2018-01-19 11:45] LABS: Glucose,Whole Blood 173 mg/dL (75-99)
[2018-01-19] MEDS: KETOROLAC 30 MG/ML 1 ML VIAL IVP PRN ×2 (11:50→17:34)
[2018-01-19] MEDS: FERROUS SULFATE 325 MG TAB PO SCH (11:52)
[2018-01-19] MEDS: INSULIN ASPART 100 UNIT/ML 1 ML 10 ML VIAL SQ SCH ×3 (12:11→21:22)
--- NOTE | 2018-01-19 12:40 | P.CONS ---
History of Present Illness - Reason for Consult Consult date: 01/19/18 Seizure, lymphoma Requesting physician: Zohra Velasquez - Chief Complaint Seizure - History of Present Illness Ms. Naik is a very pleasant 72 yo female with newly diagnosed HL, started on ABVD s/p cycle 1, who is here for new onset seizure. She states she went for her last treatment as scheduled on 01/15/18, and was doing well, without nausea, vomiting, fevers, night sweats, further weight loss, weakness, bleeding, or other complaints. She then had a seizure and her had to do CPR on her until EMS came as she was not breathing. She is not sure if the breathing or seizure occurred first. She was brought to the ED where she had CT head that was negative. She was altered at that time. She was admitted for further care, and we were consulted for further management of her lymphoma. Currently she feels much better however she is having a lot of rib pain from the CPR. No headaches or fevers. No vomiting or other neurologic complaints. No prior history of seizures. Review of Systems All systems: negative Constitutional: Reports as per HPI Past Medical History Past Medical History: Diabetes Mellitus, Osteoarthritis (OA), Skin Disorder Additional Past Medical History / Comment(s): swollen lymphnode rt axilla and neck,anemia-recent iron infusion on 12-03-17 and schedule for repeated iron infusion on 12-09-17, recent tooth infection, DRY MACULAR DEGENERATION., HX OF COLON POLYPS,psoriasis, hodgkins lymphoma History of Any Multi-Drug Resistant Organisms: None Reported Year Discovered:: 03/13/17 MDRO Source:: finger Past Surgical History: Appendectomy Additional Past Surgical History / Comment(s): APPENDECTOMY (CHILD), D & C, COLONOSCOPY Past Anesthesia/Blood Transfusion Reactions: No Reported Reaction, Family History of Problems w/ Anesthesia Additional Past Anesthesia/Blood Transfusion Reaction / Comm: SISTER-MOISESV Past Psychological History: Depression Smoking Status: Former smoker Past Alcohol Use History: None Reported Additional Past Alcohol Use History / Comment(s): SMOKED < 1PPD, quit in December 2017. SMOKING SINCE 20 YEARS OLD (52 YEARS) Past Drug Use History: None Reported - Past Family History Mother Family Medical History: No Reported History Medications and Allergies Home Medications Medication Instructions Recorded Confirmed Type metFORMIN HCL [Glucophage] 500 mg PO AC-BID 03/01/16 01/19/18 History ALPRAZolam [Xanax] 0.5 mg PO TID PRN 12/04/17 01/19/18 History Cholecalciferol [Vitamin D3] 1,000 unit PO BID 12/04/17 01/19/18 History Ferrous Sulfate [Feosol] 325 mg PO DAILY 12/04/17 01/19/18 History Vit C/E/Zn/Coppr/Lutein/Zeaxan 1 each PO BID 12/04/17 01/19/18 History [Preservision Areds 2 Softgel] Prochlorperazine [Compazine] 10 mg PO Q6H 01/19/18 01/19/18 History Allergies Allergy/AdvReac Type Severity Reaction Status Date / Time cephalexin monohydrate AdvReac Unknown YEAST Verified 01/19/18 12:08 [From Keflex] INFECTION Physical Exam Vitals: Vital Signs Temp Pulse Pulse Resp BP BP Pulse Ox 01/19/18 11:45 97 F L 86 16 126/69 99 01/19/18 08:57 100 01/19/18 08:30 97.5 F L 81 16 133/77 100 01/19/18 04:41 96.8 F L 75 16 135/75 100 01/19/18 03:50 74 18 151/75 100 01/19/18 02:10 63 18 152/70 100 01/19/18 00:48 67 18 162/77 100 01/19/18 00:04 66 18 145/83 99 Intake and Output 01/18/18 01/19/18 01/19/18 22:59 06:59 14:59 Intake Total 10 230 Balance 10 230 Intake: IV 10 0.9 10 Oral 230 Other: Voiding Method Toilet Weight 57.8 kg General: In no acute distress. HEENT: No conjunctival pallor or scleral icterus. Mucosa moist. Neck: Neck supple. Lymph: No cervical/supraclavicular LAD. Lungs: CTA-B without wheezing or rhonchi. Bilateral rib tenderness. Heart: RRR. No LE edema. Abdomen: Soft, nontender, nondistended, with positive bowel sounds. MSK: 4/4 strength in all 4 extremities. Neuro: Alert and oriented 3. No obvious gross neurologic deficits. Skin: No jaundice or rash. Psych: Appropriate affect. Results CBC & Chem 7: 06/03/18 00:10 01/19/18 00:10 Labs: Abnormal Lab Results - Last 24 Hours (Table) 01/19/18 01/19/18 01/19/18 Range/Units 00:10 00:10 00:10 MCV 75.0 L (80.0-100.0) fL MCH 24.3 L (25.0-35.0) pg RDW 19.5 H (11.5-15.5) % PT (9.0-12.0) sec INR (<1.2) Sodium 130 L (137-145) mmol/L Chloride 95 L (98-107) mmol/L Carbon Dioxide 21 L (22-30) mmol/L Creatinine 0.30 L (0.52-1.04) mg/dL Glucose 188 H (74-99) mg/dL POC Glucose (mg/dL) (75-99) mg/dL Plasma Lactic Acid Rio (0.7-2.0) mmol/L Total Creatine Kinase <20 L (30-135) U/L Urine Protein (Negative) Urine Ketones (Negative) Amorphous Sediment (None) /hpf Urine Mucus (None) /hpf 01/19/18 01/19/18 01/19/18 Range/Units 00:10 00:10 00:11 MCV (80.0-100.0) fL MCH (25.0-35.0) pg RDW (11.5-15.5) % PT 12.3 H (9.0-12.0) sec INR 1.3 H (<1.2) Sodium (137-145) mmol/L Chloride (98-107) mmol/L Carbon Dioxide (22-30) mmol/L Creatinine (0.52-1.04) mg/dL Glucose (74-99) mg/dL POC Glucose (mg/dL) 194 H (75-99) mg/dL Plasma Lactic Acid Rio 2.1 H* (0.7-2.0) mmol/L Total Creatine Kinase (30-135) U/L Urine Protein (Negative) Urine Ketones (Negative) Amorphous Sediment (None) /hpf Urine Mucus (None) /hpf 01/19/18 01/19/18 01/19/18 Range/Units 00:44 05:54 11:44 MCV (80.0-100.0) fL MCH (25.0-35.0) pg RDW (11.5-15.5) % PT (9.0-12.0) sec INR (<1.2) Sodium (137-145) mmol/L Chloride (98-107) mmol/L Carbon Dioxide (22-30) mmol/L Creatinine (0.52-1.04) mg/dL Glucose (74-99) mg/dL POC Glucose (mg/dL) 108 H 173 H (75-99) mg/dL Plasma Lactic Acid Rio (0.7-2.0) mmol/L Total Creatine Kinase (30-135) U/L Urine Protein 1+ H (Negative) Urine Ketones Trace H (Negative) Amorphous Sediment Rare H (None) /hpf Urine Mucus Rare H (None) /hpf CT Scan - head: report reviewed Assessment and Plan Assessment: 1. Seizure 2. ?Need for CPR, respiratory arrest? 3. Hodgkin's lymphoma, on active chemotherapy Plan: Ms. Naik is a very pleasant 72 yo female with newly diagnosed HL, recently started on chemotherapy with ABVD, last chemo on 01/15/18, who was doing well and presents with sudden onset new seizures and possible respiratory arrest needing CPR by her per pt. Her new onset seizures is very concerning. Unclear if she had respiratory arrest first, which could have triggered the seizure or seizure first. CT head negative in the ED. Unclear etiology of her seizure. No prior history. Vinblastine can cause neurotoxicity, including seizures. Would need to rule out other possible etiologies however. She would need MRI brain to rule out brain lesions that could be contributing. Otherwise, neurology consult and outpatient follow up with Dr. Rouse before any further treatment is administered. Discussed with pt in detail and she is agreeable to the plan. All questions answered.
--- NOTE | 2018-01-19 13:02 | P.HPIM ---
History of Present Illness 72-year-old pleasant female with you done in diagnosed with Hodgkin's lymphoma completed 2 cycles of ABVD chemotherapy came in with complaints of 20 clinic activity witnessed by the and he felt the patient was apneic as well because of which she started doing CPR when EMS arrived patient has pulse and respirations. Patient doesn't remember the episode patient denied any loss of bowel or bladder continence. Patient lost consciousness briefly for a few minutes and woke up in the ambulance and was bit confused unsure how long the post ictal confusion lasted. Patient denied and tongue biting. EEG was ordered and neurology was consulted. Patient is alert and oriented 3 completely appropriate not confused. Patient is comparing of rib pain from CPR. Patient denied any other symptoms which will be detailed review of systems Review of Systems REVIEW OF SYSTEMS: CONSTITUTIONAL: No fever, no malaise, no fatigue. HEENT: No recent visual problems or hearing problems. Denied any sore throat. CARDIOVASCULAR: No chest pain, orthopnea, PND, no palpitations, no syncope. PULMONARY: No shortness of breath, no cough, no hemoptysis. GASTROINTESTINAL: No diarrhea, no nausea, no vomiting, no abdominal pain. Normoactive bowel sounds. NEUROLOGICAL: No headaches, no weakness, no numbness. HEMATOLOGICAL: Denies any bleeding or petechiae. GENITOURINARY: Denies any burning micturition, frequency, or urgency. MUSCULOSKELETAL/RHEUMATOLOGICAL: Denies any joint pain, swelling, or any muscle pain. ENDOCRINE: Denies any polyuria or polydipsia. The rest of the 14-point review of systems is negative. Past Medical History Past Medical History: Diabetes Mellitus, Osteoarthritis (OA), Skin Disorder Additional Past Medical History / Comment(s): swollen lymphnode rt axilla and neck,anemia-recent iron infusion on 12-03-17 and schedule for repeated iron infusion on 12-09-17, recent tooth infection, DRY MACULAR DEGENERATION., HX OF COLON POLYPS,psoriasis, hodgkins lymphoma History of Any Multi-Drug Resistant Organisms: None Reported Date of last positivie culture/infection: 03/13/17 MDRO Source:: finger Past Surgical History: Appendectomy Additional Past Surgical History / Comment(s): APPENDECTOMY (CHILD), D & C, COLONOSCOPY Past Anesthesia/Blood Transfusion Reactions: No Reported Reaction, Family History of Problems w/ Anesthesia Additional Past Anesthesia/Blood Transfusion Reaction / Comment(s): SISTER-PONV Past Psychological History: Depression Smoking Status: Former smoker Past Alcohol Use History: None Reported Additional Past Alcohol Use History / Comment(s): SMOKED < 1PPD, quit in December 2017. SMOKING SINCE 20 YEARS OLD (52 YEARS) Past Drug Use History: None Reported - Past Family History Mother Family Medical History: No Reported History Medications and Allergies Home Medications Medication Instructions Recorded Confirmed Type metFORMIN HCL [Glucophage] 500 mg PO AC-BID 03/01/16 01/19/18 History ALPRAZolam [Xanax] 0.5 mg PO TID PRN 12/04/17 01/19/18 History Cholecalciferol [Vitamin D3] 1,000 unit PO BID 12/04/17 01/19/18 History Ferrous Sulfate [Feosol] 325 mg PO DAILY 12/04/17 01/19/18 History Vit C/E/Zn/Coppr/Lutein/Zeaxan 1 each PO BID 12/04/17 01/19/18 History [Preservision Areds 2 Softgel] Prochlorperazine [Compazine] 10 mg PO Q6H 01/19/18 01/19/18 History Allergies Allergy/AdvReac Type Severity Reaction Status Date / Time cephalexin monohydrate AdvReac Unknown YEAST Verified 01/19/18 12:08 [From Keflex] INFECTION Physical Exam Vitals: Vital Signs Temp Pulse Pulse Resp BP BP Pulse Ox 01/19/18 11:45 97 F L 86 16 126/69 99 01/19/18 08:57 100 01/19/18 08:30 97.5 F L 81 16 133/77 100 01/19/18 04:41 96.8 F L 75 16 135/75 100 01/19/18 03:50 74 18 151/75 100 01/19/18 02:10 63 18 152/70 100 01/19/18 00:48 67 18 162/77 100 01/19/18 00:04 66 18 145/83 99 Intake and Output 01/18/18 01/19/18 01/19/18 22:59 06:59 14:59 Intake Total 10 230 Balance 10 230 Intake: IV 10 0.9 10 Oral 230 Other: Voiding Method Toilet Weight 57.8 kg PHYSICAL EXAMINATION: GENERAL: The patient is alert and oriented x3, not in any acute distress. Well developed, well nourished. HEENT: Pupils are round and equally reacting to light. EOMI. No scleral icterus. No conjunctival pallor. Normocephalic, atraumatic. No pharyngeal erythema. No thyromegaly. CARDIOVASCULAR: S1 and S2 present. No murmurs, rubs, or gallops. PULMONARY: Chest is clear to auscultation, no wheezing or crackles. ABDOMEN: Soft, nontender, nondistended, normoactive bowel sounds. No palpable organomegaly. MUSCULOSKELETAL: No joint swelling or deformity. EXTREMITIES: No cyanosis, clubbing, or pedal edema. NEUROLOGICAL: Gross neurological examination did not reveal any focal deficits. SKIN: No rashes. Results CBC & Chem 7: 01/19/18 00:10 01/19/18 00:10 Labs: Abnormal Lab Results - Last 24 Hours (Table) 01/19/18 01/19/18 01/19/18 Range/Units 00:10 00:10 00:10 MCV 75.0 L (80.0-100.0) fL MCH 24.3 L (25.0-35.0) pg RDW 19.5 H (11.5-15.5) % PT (9.0-12.0) sec INR (<1.2) Sodium 130 L (137-145) mmol/L Chloride 95 L (98-107) mmol/L Carbon Dioxide 21 L (22-30) mmol/L Creatinine 0.30 L (0.52-1.04) mg/dL Glucose 188 H (74-99) mg/dL POC Glucose (mg/dL) (75-99) mg/dL Plasma Lactic Acid Rio (0.7-2.0) mmol/L Total Creatine Kinase <20 L (30-135) U/L Urine Protein (Negative) Urine Ketones (Negative) Amorphous Sediment (None) /hpf Urine Mucus (None) /hpf 01/19/18 01/19/18 01/19/18 Range/Units 00:10 00:10 00:11 MCV (80.0-100.0) fL MCH (25.0-35.0) pg RDW (11.5-15.5) % PT 12.3 H (9.0-12.0) sec INR 1.3 H (<1.2) Sodium (137-145) mmol/L Chloride (98-107) mmol/L Carbon Dioxide (22-30) mmol/L Creatinine (0.52-1.04) mg/dL Glucose (74-99) mg/dL POC Glucose (mg/dL) 194 H (75-99) mg/dL Plasma Lactic Acid Rio 2.1 H* (0.7-2.0) mmol/L Total Creatine Kinase (30-135) U/L Urine Protein (Negative) Urine Ketones (Negative) Amorphous Sediment (None) /hpf Urine Mucus (None) /hpf 01/19/18 01/19/18 01/19/18 Range/Units 00:44 05:54 11:44 MCV (80.0-100.0) fL MCH (25.0-35.0) pg RDW (11.5-15.5) % PT (9.0-12.0) sec INR (<1.2) Sodium (137-145) mmol/L Chloride (98-107) mmol/L Carbon Dioxide (22-30) mmol/L Creatinine (0.52-1.04) mg/dL Glucose (74-99) mg/dL POC Glucose (mg/dL) 108 H 173 H (75-99) mg/dL Plasma Lactic Acid Rio (0.7-2.0) mmol/L Total Creatine Kinase (30-135) U/L Urine Protein 1+ H (Negative) Urine Ketones Trace H (Negative) Amorphous Sediment Rare H (None) /hpf Urine Mucus Rare H (None) /hpf Thrombosis Risk Factor Assmnt - Choose All That Apply Any of the Below Risk Factors Present?: Yes Other Risk Factors: Yes Each Risk Factor Represents 2 Points: Age 61-74 years, Malignancy Thrombosis Risk Factor Assessment Total Risk Factor Score: 4 Thrombosis Risk Factor Assessment Level: Moderate Risk Assessment and Plan Plan: -Possibly of seizures: Sleep and awake EEG will be ordered and neurology was consulted patient probably will need an MRI because of her lymphoma history. I' ll leave the addition to neurology. Patient will be started on when necessary Ativan for seizures seizure precautions, CAT scan of the head did not show any significant acute abnormality -Hodgkin's lymphoma: Status post 2 cycles of chemotherapy with ABVD, oncology evaluated the patient -Type 2 diabetes mellitus on metformin which will be resumed and continued patient was started on diet -Chest wall pain: Musculoskeletal secondary to CPR will use a nonsteroidal anti- inflammatory medications Patient will need further neurologic DVT and GI prophylaxis
--- NOTE | 2018-01-19 15:23 | P.CNNES ---
History of Present Illness Consult date: 01/19/18 Reason for Consult: Patient admitted for altered mental status and possible seizure. History of Present Illness: This patient is a 72-year-old right-handed white female who apparently yesterday was at home with her and had a event suggesting possible new onset seizure. According to her who was at bedside and provided the medical history yesterday evening they had gone to bed and laid in the evening he heard some gurgling sounds coming from his . He turned and noticed that she was gurgling at the mouth and had some bubbles coming out of her mouth. She did when into a short episode of tonic-clonic like seizure activity that lasted a few minutes. He immediately called EMS. began doing CPR as he did not hear breath sounds. When EMS arrived they continued with CPR for the patient and she was transported by ambulance to the emergency room at [facility]. She was seen in the ER by Dr. Sena. She was sent for a computed tomography scan of the brain which revealed no acute abnormality. There was mild cerebral volume loss noted most prominent in the frontal lobes. No evidence of acute hemorrhage or stroke. According to the the patient did not have any bowel or bladder incontinence at home. She did not bite her tongue. She has no previous history of seizures. Patient was recently diagnosed with Hodgkin's lymphoma in November 2017. She has undergone extensive testing including bone marrow examination as well as biopsy of lymph nodes in the axilla. She was diagnosed as having Hodgkin's lymphoma and is being followed in the oncology clinic with Dr. Rouse. She has undergone 2 cycles of chemotherapy and is being followed up closely in the oncology clinic. The patient also developed some chest pain on admission which is felt to be secondary to this CPR compression. She has been ruled out for any cardiac abnormality with negative troponins. She was transferred to the oncology floor today where she is currently being treated and evaluated. Patient denies any previous history of seizures or head trauma in the past. Imdur history of Hodgkin's lymphoma we would recommend she undergo an MRI of the brain for further evaluation. We will also obtain a routine EEG for assessment of underlying seizure potential. The patient has been treated with vinblastine which does cause some degree of neurotoxicity. It is unclear whether this could've also triggered seizure-like activity and we will await further recommendations from oncology in this regard. At this time we will obtain an MRI of the brain with and without gadolinium as well as a routine EEG for further assessment. Patient is resting comfortably at this time. She has had no further seizure-like events. We will await further recommendations from oncology. Her overall prognosis at this time remains guarded. Neurology is now been consulted for further evaluation and recommendations. Review of Systems Constitutional: Denies chills, Denies fever Eyes: denies blurred vision, denies pain Ears, nose, mouth and throat: Denies headache, Denies sore throat Cardiovascular: Denies chest pain, Denies shortness of breath Respiratory: Denies cough Gastrointestinal: Denies abdominal pain, Denies diarrhea, Denies nausea, Denies vomiting Genitourinary: Denies dysuria, Denies hematuria Musculoskeletal: Denies myalgias Integumentary: Denies pruritus, Denies rash Neurological: Reports confusion, Reports convulsions, Reports memory loss, Reports seizures, Reports syncope, Denies numbness, Denies weakness Psychiatric: Denies anxiety, Denies depression Endocrine: Denies fatigue, Denies weight change Past Medical History Past Medical History: Diabetes Mellitus, Osteoarthritis (OA), Skin Disorder Additional Past Medical History / Comment(s): swollen lymphnode rt axilla and neck,anemia-recent iron infusion on 12-03-17 and schedule for repeated iron infusion on 12-09-17, recent tooth infection, DRY MACULAR DEGENERATION., HX OF COLON POLYPS,psoriasis, hodgkins lymphoma History of Any Multi-Drug Resistant Organisms: None Reported Date of last positivie culture/infection: 03/13/17 MDRO Source:: finger Past Surgical History: Appendectomy Additional Past Surgical History / Comment(s): APPENDECTOMY (CHILD), D & C, COLONOSCOPY Past Anesthesia/Blood Transfusion Reactions: No Reported Reaction, Family History of Problems w/ Anesthesia Additional Past Anesthesia/Blood Transfusion Reaction / Comment(s): SISTER-PONV Past Psychological History: Depression Smoking Status: Former smoker Past Alcohol Use History: None Reported Additional Past Alcohol Use History / Comment(s): SMOKED < 1PPD, quit in December 2017. SMOKING SINCE 20 YEARS OLD (52 YEARS) Past Drug Use History: None Reported - Past Family History Mother Family Medical History: No Reported History Medications and Allergies Home Medications Medication Instructions Recorded Confirmed Type metFORMIN HCL [Glucophage] 500 mg PO AC-BID 03/01/16 01/19/18 History ALPRAZolam [Xanax] 0.5 mg PO TID PRN 12/04/17 01/19/18 History Cholecalciferol [Vitamin D3] 1,000 unit PO BID 12/04/17 01/19/18 History Ferrous Sulfate [Feosol] 325 mg PO DAILY 12/04/17 01/19/18 History Vit C/E/Zn/Coppr/Lutein/Zeaxan 1 each PO BID 12/04/17 01/19/18 History [Preservision Areds 2 Softgel] Prochlorperazine [Compazine] 10 mg PO Q6H 01/19/18 01/19/18 History Allergies Allergy/AdvReac Type Severity Reaction Status Date / Time cephalexin monohydrate AdvReac Unknown YEAST Verified 01/19/18 12:08 [From Keflex] INFECTION Physical Examination - Vital Signs Vital Signs: Vital Signs Temp Pulse Pulse Resp BP BP Pulse Ox 01/19/18 11:45 97 F L 86 16 126/69 99 01/19/18 08:57 100 01/19/18 08:30 97.5 F L 81 16 133/77 100 01/19/18 04:41 96.8 F L 75 16 135/75 100 01/19/18 03:50 74 18 151/75 100 01/19/18 02:10 63 18 152/70 100 01/19/18 00:48 67 18 162/77 100 01/19/18 00:04 66 18 145/83 99 Intake and Output 01/18/18 01/19/18 01/19/18 22:59 06:59 14:59 Intake Total 10 230 Balance 10 230 Intake: IV 10 0.9 10 Oral 230 Other: Voiding Method Toilet Weight 57.8 kg - Constitutional General appearance: average body habitus, cooperative - EENT EENT: PERRL, mucous membranes moist - Respiratory Respiratory: lungs clear, normal breath sounds - Cardiovascular Cardiovascular: regular rate, normal S1, normal S2 Extremities: no peripheral edema bilaterally - Gastrointestinal Gastrointestinal: normoactive bowel sounds - Integumentary Integumentary: normal - Neurologic Cranial nerve examination: PERRL, EOMI, VFF, V1/V2/V3 grossly intact, face symmetric, tongue midline, intact gag reflex, intact corneal reflex, normal palatal elevation Speech examination: intact Sensorimotor examination: intact Motor examination - right side: 4/5: biceps, triceps, wrist flexion, wrist extension, fish cleaner machine tender, hip flexors, knee extensors, dorsiflexion, toe extension (EHL) , plantarflexion Motor examination - left side: 4/5: biceps, triceps, wrist flexion, wrist extension, fish cleaner machine tender, hip flexors, knee extensors, dorsiflexion, toe extension (EHL) , plantarflexion Detailed sensory examination: intact Reflex and gait examination: intact Reflexes: 1+: ankle, bicep, knee, tricep - Musculoskeletal Musculoskeletal: no pain - Psychiatric Psychiatric: mood/affect appropriate, cooperative Results - Laboratory Findings CBC and BMP: 01/19/18 00:10 01/19/18 00:10 Abnormal Lab Findings: Abnormal Labs 01/19/18 01/19/18 01/19/18 00:10 00:10 00:10 MCV 75.0 L MCH 24.3 L RDW 19.5 H PT INR Sodium 130 L Chloride 95 L Carbon Dioxide 21 L Creatinine 0.30 L Glucose 188 H POC Glucose (mg/dL) Plasma Lactic Acid Rio Total Creatine Kinase <20 L Urine Protein Urine Ketones Amorphous Sediment Urine Mucus 01/19/18 01/19/18 01/19/18 00:10 00:10 00:11 MCV MCH RDW PT 12.3 H INR 1.3 H Sodium Chloride Carbon Dioxide Creatinine Glucose POC Glucose (mg/dL) 194 H Plasma Lactic Acid Rio 2.1 H* Total Creatine Kinase Urine Protein Urine Ketones Amorphous Sediment Urine Mucus 01/19/18 01/19/18 01/19/18 00:44 05:54 11:44 MCV MCH RDW PT INR Sodium Chloride Carbon Dioxide Creatinine Glucose POC Glucose (mg/dL) 108 H 173 H Plasma Lactic Acid Rio Total Creatine Kinase Urine Protein 1+ H Urine Ketones Trace H Amorphous Sediment Rare H Urine Mucus Rare H Assessment and Plan (1) Hodgkins lymphoma Current Visit: Yes Status: Acute Code(s): C81.90 - HODGKIN LYMPHOMA, UNSPECIFIED, UNSPECIFIED SITE SNOMED Code(s): 645022879 (2) New onset seizure Current Visit: Yes Status: Acute Code(s): R56.9 - UNSPECIFIED CONVULSIONS SNOMED Code(s): 54115009 (3) Diabetes mellitus Current Visit: Yes Status: Acute Code(s): E11.9 - TYPE 2 DIABETES MELLITUS WITHOUT COMPLICATIONS SNOMED Code(s): 57097545 (4) Chemotherapy adverse reaction Current Visit: Yes Status: Acute Code(s): T45.1X5A - ADVERSE EFFECT OF ANTINEOPLASTIC AND IMMUNOSUP DRUGS, INIT SNOMED Code(s): 136771826 Plan: This patient is a 72-year-old female who is being evaluated for questionable new onset seizure episode that occurred yesterday at home. Patient had eyes rolled back and she became unresponsive requiring CPR to be administered by her . was at her side and noted that her eyes rolled back and she had tonic-clonic movements of her entire body. Peggy is gurgling with her speech as well. EMS was on the scene immediately and was transported by EMS to the emergency room at [facility]. She was seen in the ER by Dr. Sena and was sent for a computed tomography scan of the brain without contrast. She was subsequent admitted to Hospital. She is now examined on the oncology floor and seems to be doing much better. She has had no further recurrent spells. Given her history of Hodgkin's lymphoma we have recommended she undergo an MRI of the brain with and without gadolinium for further evaluation of underlying seizure disorder. We will also obtain routine EEG. Patient has been treated with vinblastine which also could have side effect potential producing seizure. We will await further recommendations from oncology. Continue with seizure precautions for this patient. Case was discussed at length with the patient and her at bedside. All of their questions were answered. We will give further recommendations depending on her testing and test results to be reviewed tomorrow. Her overall prognosis at this time remains very guarded. Time with Patient: Greater than 30
[2018-01-19 17:17] LABS: Glucose,Whole Blood 135 mg/dL (75-99)
[2018-01-19] MEDS ORDERED: metFORMIN 500 MG TAB PO SCH (17:30)
[2018-01-19 20:25] LABS: Glucose,Whole Blood 168 mg/dL (75-99)
[2018-01-19] MEDS: HEPARIN SODIUM,PORCINE 5,000 UNIT/ML 1 ML VIAL SQ SCH (21:14)
[2018-01-19] MEDS: FAMOTIDINE 20 MG TAB PO SCH (21:14)
[2018-01-19] MEDS: DOCUSATE 100 MG CAP PO SCH (21:14)
[2018-01-19] MEDS: ONDANSETRON 4 MG/2 ML VIAL IVP PRN (22:05)
[2018-01-20] MEDS: SODIUM CHLORIDE 0.9% 1,000 ML IV SCH ×4 (02:03→16:58)
[2018-01-20] MEDS: PROCHLORPERAZINE 10 MG TAB PO SCH ×4 (02:03→20:31)
[2018-01-20] MEDS: ONDANSETRON 4 MG/2 ML VIAL IVP PRN (06:10)
[2018-01-20 07:02] LABS: Glucose,Whole Blood 141 mg/dL (75-99)
[2018-01-20 07:38] LABS: Anion Gap 14 mmol/L; Blood Urea Nitrogen 7 mg/dL (7-17); Calcium 9.1 mg/dL (8.4-10.2); Carbon Dioxide 22 mmol/L (22-30); Chloride 89 mmol/L (98-107); Glucose 137 mg/dL (74-99); Potassium 4.2 mmol/L (3.5-5.1); Sodium 125 mmol/L (137-145)
[2018-01-20] MEDS: CHOLECALCIFEROL 1,000 UNIT TAB PO SCH ×2 (07:42→20:31)
[2018-01-20] MEDS: INSULIN ASPART 100 UNIT/ML 1 ML 10 ML VIAL SQ SCH ×4 (07:42→20:31)
[2018-01-20] MEDS: VIT A,C & E-LUTEIN-MINERALS 1 EACH TAB PO SCH ×2 (07:42→20:31)
[2018-01-20] MEDS: DOCUSATE 100 MG CAP PO SCH ×2 (07:42→20:31)
[2018-01-20] MEDS: FAMOTIDINE 20 MG TAB PO SCH ×2 (07:42→20:31)
[2018-01-20] MEDS: HEPARIN SODIUM,PORCINE 5,000 UNIT/ML 1 ML VIAL SQ SCH ×2 (07:44→20:31)
[2018-01-20 09:31] LABS: Uric Acid 1.6 mg/dL (3.7-7.4)
[2018-01-20 11:04] LABS: Glucose,Whole Blood 129 mg/dL (75-99)
[2018-01-20 12:19] LABS: Potassium,Urine Random 16.9 mmol/L
[2018-01-20 12:22] LABS: Hemoglobin A1C 5.3 % (4.0-6.0)
--- NOTE | 2018-01-20 13:19 | ECHOF ---
Referral Reason:Adriamycin - Concern for cardiotoxicity MEASUREMENTS -------- HEIGHT: 154.9 cm WEIGHT: 57.6 kg BP: 170/88 RVIDd: 2.9 cm (< 3.3) IVSd: 1.0 cm (0.6 - 1.1) LVIDd: 4.0 cm (3.9 - 5.3) LVPWd: 1.0 cm (0.6 - 1.1) IVSs: 1.5 cm LVIDs: 3.5 cm LVPWs: 1.4 cm LAESV Index (A-L): 20.64 ml/m Ao Diam: 3.2 cm (2.0 - 3.7) AV Cusp: 1.6 cm (1.5 - 2.6) LA Diam: 2.5 cm (2.7 - 3.8) MV E Heath: 0.62 m/s MV DecT: 272 ms MV A Heath: 1.02 m/s MV E/A Ratio: 0.61 RAP: 5.00 mmHg RVSP: 23.10 mmHg MV EF SLOPE: 56.81 mm/s (70 - 150) MV EXCURSION: 1.64 cm (> 18.000) FINDINGS -------- Sinus rhythm. This was a technically adequate study. The left ventricular size is normal. Left ventricular wall thickness is normal. Overall left vent ricular systolic function is normal with, an EF between 55 - 60 %. The right ventricle is normal in size and function. Normal LA size by volume 22+/-6 ml/m2. The right atrium is normal in size. Aortic valve is trileaflet and is mildly thickened. There is mild aortic regurgitation. The mitral valve leaflets are mildly thickened. Mild mitral regurgitation is present. Trace tricuspid regurgitation present. Right ventricular systolic pressure is normal at < 35 mmHg. There is no evidence of pulmonary hypertension. The pulmonic valve was not well visualized. There is no pulmonic regurgitation present. The aortic root size is normal. Normal inferior vena cava with normal inspiratory collapse consistent with estimated right atrial pre ssure of 5 mmHg. There is no pericardial effusion. CONCLUSIONS -------- 1. Sinus rhythm. 2. This was a technically adequate study. 3. The left ventricular size is normal. 4. Left ventricular wall thickness is normal. 5. Overall left ventricular systolic function is normal with, an EF between 55 - 60 %. 6. Normal LA size by volume 22+/-6 ml/m2. 7. Aortic valve is trileaflet and is mildly thickened. 8. There is mild aortic regurgitation. 9. The mitral valve leaflets are mildly thickened. 10. Mild mitral regurgitation is present. 11. Trace tricuspid regurgitation present. 12. Right ventricular systolic pressure is normal at < 35 mmHg. 13. The pulmonic valve was not well visualized. 14. There is no pulmonic regurgitation present. 15. The aortic root size is normal. 16. There is no pericardial effusion. FUSE CUTTER: Kumar Keith RDCS
--- NOTE | 2018-01-20 13:32 | P.PN ---
Subjective Progress Note Date: 01/20/18 Progress note being dictated for Dr. Moreira. Interval history:72-year-old pleasant female with you done in diagnosed with Hodgkin's lymphoma completed 2 cycles of ABVD chemotherapy came in with complaints of 20 clinic activity witnessed by the and he felt the patient was apneic as well because of which she started doing CPR when EMS arrived patient has pulse and respirations. Patient doesn't remember the episode patient denied any loss of bowel or bladder continence. Patient lost consciousness briefly for a few minutes and woke up in the ambulance and was bit confused unsure how long the post ictal confusion lasted. Patient denied and tongue biting. EEG was ordered and neurology was consulted. Patient is alert and oriented 3 completely appropriate not confused. Patient is comparing of rib pain from CPR. Patient denied any other symptoms which will be detailed review of systems Review of Systems REVIEW OF SYSTEMS: CONSTITUTIONAL: No fever, no malaise, no fatigue. HEENT: No recent visual problems or hearing problems. Denied any sore throat. CARDIOVASCULAR: No chest pain, orthopnea, PND, no palpitations, no syncope. PULMONARY: No shortness of breath, no cough, no hemoptysis. GASTROINTESTINAL: No diarrhea, no nausea, no vomiting, no abdominal pain. Normoactive bowel sounds. NEUROLOGICAL: No headaches, no weakness, no numbness. HEMATOLOGICAL: Denies any bleeding or petechiae. GENITOURINARY: Denies any burning micturition, frequency, or urgency. MUSCULOSKELETAL/RHEUMATOLOGICAL: Denies any joint pain, swelling, or any muscle pain. ENDOCRINE: Denies any polyuria or polydipsia. The rest of the 14-point review of systems is negative. 01/20/2018 evaluated by neurology and oncology with recommendations noted. scheduled for a brain MRI this morning. EEG results pending. Echo reporting normal LV function, EF 55-60%. sodium 125 on IV fluids of 0.9 normal saline 100 MLS/ hr. no further seizure activity reported. Denies chest pain, palpitations or increased shortness of breath. Denies lightheadedness, dizziness or focal deficits. Objective - Vital Signs Vital signs: Vital Signs Temp 98.1 F 01/20/18 06:00 Pulse 88 01/20/18 07:45 Resp 20 01/20/18 07:45 BP 170/88 01/20/18 06:00 Pulse Ox 100 01/20/18 06:00 Intake & Output 01/19/18 01/20/18 01/20/18 18:59 06:59 18:59 Intake Total 455 1137 Balance 455 1137 Intake: IV 225 900 0.9 225 Sodium Chloride 0.9% 1, 900 000 ml @ 75 mls/hr IV . [id number] [facility] Rx#:[id number] Oral 230 237 Other: Voiding Method Toilet Toilet Toilet # Voids 2 - Exam GENERAL: The patient is alert and oriented x3, not in any acute distress. Well developed, well nourished. HEENT: Pupils are round and equally reacting to light. EOMI. No scleral icterus. No conjunctival pallor. Normocephalic, atraumatic. No pharyngeal erythema. No thyromegaly. CARDIOVASCULAR: S1 and S2 present. No murmurs, rubs, or gallops. PULMONARY: Chest is clear to auscultation, no wheezing or crackles. ABDOMEN: Soft, nontender, nondistended, normoactive bowel sounds. No palpable organomegaly. MUSCULOSKELETAL: No joint swelling or deformity. EXTREMITIES: No cyanosis, clubbing, or pedal edema. NEUROLOGICAL: Gross neurological examination did not reveal any focal deficits. SKIN: No rashes. - Labs CBC & Chem 7: 01/19/18 00:10 01/20/18 07:02 Labs: Abnormal Lab Results - Last 24 Hours (Table) 01/19/18 01/19/18 01/20/18 Range/Units 17:12 20:24 07:00 Sodium (137-145) mmol/L Chloride (98-107) mmol/L Creatinine (0.52-1.04) mg/dL Glucose (74-99) mg/dL POC Glucose (mg/dL) 135 H 168 H 141 H (75-99) mg/dL Uric Acid (3.7-7.4) mg/dL 01/20/18 01/20/18 01/20/18 Range/Units 07:02 07:02 11:02 Sodium 125 L (137-145) mmol/L Chloride 89 L (98-107) mmol/L Creatinine 0.29 L (0.52-1.04) mg/dL Glucose 137 H (74-99) mg/dL POC Glucose (mg/dL) 129 H (75-99) mg/dL Uric Acid 1.6 L (3.7-7.4) mg/dL Microbiology - Last 24 Hours (Table) 01/19/18 00:10 Blood Culture - Preliminary Blood No Growth after 24 hours Assessment and Plan Assessment: -Possibly of seizures: CAT scan of the head did not show any significant acute abnormality. MRI pending -Hodgkin's lymphoma: Status post 2 cycles of chemotherapy with ABVD, oncology evaluated the patient -Type 2 diabetes mellitus -Chest wall pain: Musculoskeletal secondary to CPR will use a nonsteroidal anti- inflammatory medications Patient will need further neurologic DVT and GI prophylaxis Plan: Continue current medication regime ,monitoring and symptomatic treatment. Brain MRI pending. Maintain Seizure precautions with prn Ativan. Follow closely with neurology and oncology. Prognosis guarded given multiple complex medical issues. The impression and plan of care has been dictated as directed. : I performed a history and examination of this patient, discussed the same with the dictator. I agree with the dictator's note ,documented as a scribe. Any additional findings or plans will be noted.
--- NOTE | 2018-01-20 13:34 | MR ---
"EXAMINATION TYPE: MR brain wo/w con DATE OF EXAM: 01/20/2018 COMPARISON: CT brain 01/19/2018 HISTORY: New onset seizure with history of Hodgkin's lymphoma TECHNIQUE: Multiplanar, multisequence images of the brain and brainstem is performed without and with IV contras t, utilizing 5.5 mL intravenous Gadavist . FINDINGS: Diffusion weighted images demonstrate no evidence of a recent infarct or other diffusion ab normality. There is no extra-axial fluid collection. Within the posterior parietal and occipital lob es, there is patchy relatively symmetric increased signal on inversion recovery and T2-weighted seque nces in the juxta and subcortical white matter. Additionally there are scattered hyperintensities on inversion recovery and T2-weighted sequences in the periventricular white matter, juxtacortical white matter towards the convexity bilaterally. There is no mass effect. No abnormal enhancement following contrast administration. Midline structures demonstrate normal morphology. The craniocervical junction appears within normal limits. The dural venous sinuses appear patent. The visualized sinuses are clear and the globes are intact. 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 Follow-up is recommended. A Yellow level critical message alert has been initiated for Sebastián Tony via the [employer] 36 0 | Critical Results System on 01/20/2018 1:28 PM. This message alert has been sent to Sebastián roth via the preferences provided by the clinician for the receipt of Radiology Critical Findings. Mess age ID [id number]."
[2018-01-20 13:39] VITALS: BMI 24.0
[2018-01-20] MEDS: FERROUS SULFATE 325 MG TAB PO SCH (14:40)
[2018-01-20 16:40] LABS: Glucose,Whole Blood 114 mg/dL (75-99)
--- NOTE | 2018-01-20 17:47 | EEG ---
ELECTROENCEPHALOGRAM REPORT DATE OF EE01/20/2018. REFERRING PHYSICIAN: Dr. Velasquez. CONSULTING AND INTERPRETING PHYSICIAN: Sebastián Tony MD ELECTROENCEPHALOGRAPHIC EXAMINATION REPORT: INDICATION FOR EXAMINATION: This patient is a 72-year-old female being evaluated for new onset seizure. The patient recently diagnosed with Hodgkin lymphoma and is undergoing chemotherapy. AGE: 72. EEG FINDINGS: A routine 21 channel awake digital EEG recording was accomplished utilizing the 10-20 international system with bipolar and referential montages. The background activity in the most alert resting state consists of a low to medium amplitude, fairly well developed and well sustained 6-7 Hz activity over the posterior head regions. This posterior rhythm attenuates to eye opening. There is a small amount of low amplitude 18-20 Hz beta activity seen maximally over the anterior head regions. Muscle and movement artifact was observed on a few occasions during the tracing. Hyperventilation was not performed. Photic stimulation at flash frequencies of 2-30 Hz produced a good symmetrical occipital driving response. No epileptiform discharges were seen. Towards the latter portion of the tracing, the patient does drift into spontaneous drowsiness. IMPRESSION: This EEG is mildly abnormal in a diffuse fashion due to slight slowing of the EEG background. The EEG failed to reveal any focal, lateralized, or epileptiform abnormalities. Clinical correlation is recommended. MMODL / IJN: [id number] /
--- NOTE | 2018-01-20 18:19 | P.PN ---
Subjective Progress Note Date: 01/20/18 This patient is a 72-year-old female who was admitted yesterday with possible new onset seizure. Patient has a recent diagnosis of Hodgkin's lymphoma and has undergone 2 cycles of chemotherapy. She was brought into the emergency room yesterday after having a possible seizure-like event. She apparently was sitting at the table and had an event of unresponsiveness. She appeared to be slightly confused following the event and she was subsequently admitted to Hospital. Patient underwent computed tomography scan of the brain in the ER which revealed no acute abnormality. She was subsequent admitted to the oncology floor she does have a history of Hodgkin's lymphoma. This was diagnosed recently in November 2017 and she follows with Dr. Rouse. Due to her history of the Hodgkin's lymphoma she was sent for MRI of the brain today. MRI revealed findings suggesting posterior reversible encephalopathy syndrome with chronic small vessel ischemic changes. There was age-related atrophy noted. No abnormal enhancement was seen with contrast administration. We reviewed the results of the MRI today with the patient. There were nonspecific changes in the parietal occipital region of the brain raising the question of PRES syndrome. Exact etiology of this condition is unknown. At this time would recommend consideration use of small dose of baby aspirin 81 mg daily. She underwent routine EEG today which was also reviewed and is negative for any evidence of epileptiform discharges. Based on the MRI and EEG results we would recommend close observation at this time. Since she is on multiple medications would hold off on adding anticonvulsant at this time unless a recurrent event were to occur. As noted EEG failed to reveal any active seizure focus. Patient has been doing much better since admission to the hospital. Possibility of her seizure event related to her chemotherapy is a concern and she will discuss this later with Dr. Rouse in the outpatient setting. She has been treated with Vinblastin which may be neurotoxic chemotherapy agent. We will await further recommendations from oncology. Would recommend follow-up in the outpatient neurology clinic in 3-4 weeks upon discharge. Overall prognosis at this time remains guarded. She was explained [employer] driving law in detail which states she cannot drive in the state [facility] for appeared of 6 months following her last event of seizure-like activity. She is aware of this and will depend on her mostly for any driving chores. Her overall prognosis at this time remains guarded. Objective - Vital Signs Vital signs: Vital Signs Temp 98.1 F 01/20/18 06:00 Pulse 104 H 01/20/18 16:00 Resp 18 01/20/18 16:00 BP 126/71 01/20/18 15:00 Pulse Ox 100 01/20/18 15:00 Intake & Output 01/19/18 01/20/18 01/20/18 18:59 06:59 18:59 Intake Total 455 1137 Balance 455 1137 Weight 57.8 kg Intake: IV 225 900 0.9 225 Sodium Chloride 0.9% 1, 900 000 ml @ 75 mls/hr IV . [id number] [facility] Rx#:[id number] Oral 230 237 Other: Voiding Method Toilet Toilet Toilet # Voids 2 2 - Exam Physical Examination: PHYSICAL EXAMINATION: Patient is resting comfortably in bed. VITAL SIGNS: Blood pressure is [126/71]. Heart rate is [104]. Respiration is [18 ]. Temperature is [98.1]. HEENT: Head is atraumatic, neck is supple, there were no carotid bruits. CHEST: Lungs are clear to auscultation and percussion. CARDIAC: S1, S2 normal rate and rhythm. There is no murmur. ABDOMEN: Soft and nontender. Bowel sounds are present. EXTREMITIES: There is no pedal edema. Peripheral pulses are present. Neurological examination: Patient has a nonfocal neurological examination today. Results of her MRI and EEG were discussed with her and her at bedside in detail. - Labs CBC & Chem 7: 01/19/18 00:10 01/20/18 07:02 Labs: Abnormal Lab Results - Last 24 Hours (Table) 01/19/18 01/19/18 01/20/18 Range/Units 17:12 20:24 07:00 Sodium (137-145) mmol/L Chloride (98-107) mmol/L Creatinine (0.52-1.04) mg/dL Glucose (74-99) mg/dL POC Glucose (mg/dL) 135 H 168 H 141 H (75-99) mg/dL Osmolality (280-301) mosm/kg Uric Acid (3.7-7.4) mg/dL 01/20/18 01/20/18 01/20/18 Range/Units 07:02 07:02 11:02 Sodium 125 L (137-145) mmol/L Chloride 89 L (98-107) mmol/L Creatinine 0.29 L (0.52-1.04) mg/dL Glucose 137 H (74-99) mg/dL POC Glucose (mg/dL) 129 H (75-99) mg/dL Osmolality 256 L (280-301) mosm/kg Uric Acid 1.6 L (3.7-7.4) mg/dL 01/20/18 Range/Units 16:38 Sodium (137-145) mmol/L Chloride (98-107) mmol/L Creatinine (0.52-1.04) mg/dL Glucose (74-99) mg/dL POC Glucose (mg/dL) 114 H (75-99) mg/dL Osmolality (280-301) mosm/kg Uric Acid (3.7-7.4) mg/dL Microbiology - Last 24 Hours (Table) 01/19/18 00:10 Blood Culture - Preliminary Blood No Growth after 24 hours Assessment and Plan (1) Hodgkins lymphoma Current Visit: Yes Status: Acute Code(s): C81.90 - HODGKIN LYMPHOMA, UNSPECIFIED, UNSPECIFIED SITE SNOMED Code(s): 844499955 (2) New onset seizure Current Visit: Yes Status: Acute Code(s): R56.9 - UNSPECIFIED CONVULSIONS SNOMED Code(s): 22734752 (3) Diabetes mellitus Current Visit: Yes Status: Acute Code(s): E11.9 - TYPE 2 DIABETES MELLITUS WITHOUT COMPLICATIONS SNOMED Code(s): 48974546 (4) Chemotherapy adverse reaction Current Visit: Yes Status: Acute Code(s): T45.1X5A - ADVERSE EFFECT OF ANTINEOPLASTIC AND IMMUNOSUP DRUGS, INIT SNOMED Code(s): 413209693 Plan: This patient is a 72-year-old female recently diagnosed with Hodgkin's lymphoma. She was admitted to hospital with possible syncope versus seizure. She underwent a routine EEG today which is reviewed and is moderately slow with no evidence of any epileptiform discharges. She completed a MRI of the brain today results which are noted above. Patient was recommended to start on one baby aspirin 81 mg daily. There was no evidence of any abnormal enhancement on the MRI of the brain. Patient is to follow-up with Dr. Rouse later this week for further management of her Hodgkin's lymphoma. Question whether one of her chemotherapeutic agents is producing symptoms of neurotoxicity. This possibly would be the Vinblastin. She will bring this up further with her oncologist Dr. Rouse at her next follow-up visit. We did review the results of the EEG and MRI with the patient and her in detail. She is advised she should not be driving for appeared of 6 months following this last seizure-like event. Her overall prognosis at this time remains guarded. She may follow-up in the outpatient neurology clinic in 3-4 weeks. We will continue to follow along as needed for this patient. Her overall prognosis at this time remains guarded.
--- NOTE | 2018-01-20 19:59 | P.PN ---
Subjective Progress Note Date: 01/20/18 Principal diagnosis: Mental Status Changes on Current treatment for Hodgkins Disease Ms. Naik is a very pleasant 72 yo female with newly diagnosed HL, started on ABVD s/p cycle 1, who is here for new onset seizure. She states she went for her last treatment as scheduled on 01/15/18, and was doing well, without nausea, vomiting, fevers, night sweats, further weight loss, weakness, bleeding, or other complaints. She then had a seizure and her had to do CPR on her until EMS came as she was not breathing. She is not sure if the breathing or seizure occurred first. She was brought to the ED where she had CT head that was negative. She was altered at that time. She was admitted for further care, and we were consulted for further management of her lymphoma. Currently she feels much better however she is having a lot of rib pain from the CPR. No headaches or fevers. No vomiting or other neurologic complaints. No prior history of seizures. 01/20/18 - Nelly was seen in follow-up today. She is doing much better. She is alert and oriented, she has not had any further episodes consistent with seizure like activity. Her CT brain reviewed and we are awaiting MRI of brain to confirm no progressive lymphoma is involving brain. Objective - Vital Signs Vital signs: Vital Signs Temp 98.1 F 01/20/18 06:00 Pulse 88 01/20/18 07:45 Resp 20 01/20/18 07:45 BP 170/88 01/20/18 06:00 Pulse Ox 100 01/20/18 06:00 Intake & Output 01/19/18 01/20/18 01/20/18 18:59 06:59 18:59 Intake Total 455 1137 Balance 455 1137 Intake: IV 225 900 0.9 225 Sodium Chloride 0.9% 1, 900 000 ml @ 75 mls/hr IV . [id number] [facility] Rx#:[id number] Oral 230 237 Other: Voiding Method Toilet Toilet Toilet # Voids 2 - Constitutional General appearance: Present: cooperative, no acute distress - EENT Eyes: Present: EOMI, PERRLA, dentition normal ENT: Present: NA/AT, normal oropharynx - Neck Details: Supple, Trachea Midline Neck: Present: lymphadenopathy, normal ROM - Respiratory Respiratory: bilateral: CTA - Cardiovascular Heart rate: 108 Rhythm: regular Heart sounds: normal: S1 - Gastrointestinal General gastrointestinal: Present: normal bowel sounds, soft - Integumentary Integumentary: Present: pale - Musculoskeletal Musculoskeletal: Present: generalized weakness, strength equal bilaterally - Psychiatric Psychiatric: Present: A&O x's 3, appropriate affect, intact judgment & insight - Labs CBC & Chem 7: 01/19/18 00:10 01/20/18 07:02 Labs: Abnormal Lab Results - Last 24 Hours (Table) 01/19/18 01/19/18 01/20/18 Range/Units 17:12 20:24 07:00 Sodium (137-145) mmol/L Chloride (98-107) mmol/L Creatinine (0.52-1.04) mg/dL Glucose (74-99) mg/dL POC Glucose (mg/dL) 135 H 168 H 141 H (75-99) mg/dL Uric Acid (3.7-7.4) mg/dL 01/20/18 01/20/18 01/20/18 Range/Units 07:02 07:02 11:02 Sodium 125 L (137-145) mmol/L Chloride 89 L (98-107) mmol/L Creatinine 0.29 L (0.52-1.04) mg/dL Glucose 137 H (74-99) mg/dL POC Glucose (mg/dL) 129 H (75-99) mg/dL Uric Acid 1.6 L (3.7-7.4) mg/dL Microbiology - Last 24 Hours (Table) 01/19/18 00:10 Blood Culture - Preliminary Blood No Growth after 24 hours Assessment and Plan Plan: Assessment and Plan Assessment: 1. Seizure - Unclear etiology, differentials include neurotoxicity secondary vinblastine ( seizure activity rare) versus lack of oxygenation from aspiration after emesis - Further assess with MRI of brain for potential progressive disease brain - Neutology FOllowing 2. ?Need for CPR, respiratory arrest? - If concern for underlying cardiac event Echocardiogram resonable with anthracycline chemotherapy. Less likely picture 3. Hodgkin's lymphoma, on active chemotherapy - Monitor CBC and CMP with recent chemotherapy - Follow-up after work-up complete and discharge with Dr. Rouse to determine plan for continued chemotherapy Physician Attestation: I have completed the full history and physcial of this patient and agree with above dictation by Zaida Randle, WATCH TECHNICIAN Dictated as a scribe
[2018-01-20 20:33] LABS: Glucose,Whole Blood 109 mg/dL (75-99)
[2018-01-21] MEDS: PROCHLORPERAZINE 10 MG TAB PO SCH ×4 (03:08→20:23)
[2018-01-21 06:50] LABS: Glucose,Whole Blood 150 mg/dL (75-99)
[2018-01-21 07:26] LABS: Anisocytosis Slight; Basophils % (A) 1 %; Eosinophils # (A) 0.3 k/uL (0-0.7); Eosinophils % (A) 5 %; HCT 38.1 % (34.0-46.0); HGB 12.7 gm/dL (11.4-16.0); Lymphocytes # (A) 1.3 k/uL (1.0-4.8); Lymphocytes % (A) 26 %; MCH 24.7 pg (25.0-35.0); MCHC 33.3 g/dL (31.0-37.0); MCV 74.1 fL (80.0-100.0); Mean Platelet Volume 6.3; Microcytosis Moderate; Monocytes # (A) 0.2 k/uL (0-1.0); Monocytes % (A) 3 %; Neutrophils # (A) 3.3 k/uL (1.3-7.7); Neutrophils % (A) 63 %; Platelet Count 291 k/uL (150-450); Poikilocytosis Slight; RBC 5.13 m/uL (3.80-5.40); RDW 19.5 % (11.5-15.5); WBC 5.2 k/uL (3.8-10.6)
[2018-01-21] MEDS: DOCUSATE 100 MG CAP PO SCH ×2 (07:33→20:23)
[2018-01-21] MEDS: FAMOTIDINE 20 MG TAB PO SCH ×2 (07:33→20:22)
[2018-01-21] MEDS: CHOLECALCIFEROL 1,000 UNIT TAB PO SCH ×2 (07:33→20:23)
[2018-01-21] MEDS: VIT A,C & E-LUTEIN-MINERALS 1 EACH TAB PO SCH ×2 (07:33→20:23)
[2018-01-21] MEDS: HEPARIN SODIUM,PORCINE 5,000 UNIT/ML 1 ML VIAL SQ SCH ×2 (07:33→20:23)
[2018-01-21] MEDS: INSULIN ASPART 100 UNIT/ML 1 ML 10 ML VIAL SQ SCH ×4 (07:36→20:20)
[2018-01-21] MEDS: SODIUM CHLORIDE 0.9% 1,000 ML IV SCH (07:36)
[2018-01-21] MEDS: ACETAMINOPHEN TAB 325 MG TAB PO PRN (07:38)
[2018-01-21 07:51] LABS: ALT 33 U/L (9-52); AST 22 U/L (14-36); Alkaline Phosphatase 87 U/L (38-126); Anion Gap 12 mmol/L; Blood Urea Nitrogen 11 mg/dL (7-17); Carbon Dioxide 24 mmol/L (22-30); Chloride 92 mmol/L (98-107); Glucose 127 mg/dL (74-99); Potassium 4.2 mmol/L (3.5-5.1); Sodium 128 mmol/L (137-145); Total Bilirubin 0.6 mg/dL (0.2-1.3); Total Protein 7.1 g/dL (6.3-8.2)
--- NOTE | 2018-01-21 08:59 | P.PN ---
Subjective Progress Note Date: 01/21/18 The patient denies any recurrence of seizure type activity, difficulty in breathing or choking. She had breakfast this morning without any difficulty. She is complaining of some gas, and feeling of chest congestion. Objective - Vital Signs Vital signs: Vital Signs Temp 97.7 F 01/21/18 07:10 Pulse 84 01/21/18 07:44 Resp 18 01/21/18 07:44 BP 167/88 01/21/18 07:10 Pulse Ox 100 01/21/18 07:10 Intake & Output 01/20/18 01/21/18 01/21/18 18:59 06:59 18:59 Weight 57.8 kg Other: Voiding Method Toilet Toilet Toilet # Voids 2 1 - Constitutional General appearance: Present: no acute distress - EENT Eyes: Present: EOMI, PERRLA ENT: Present: hearing grossly normal, normal oropharynx - Respiratory Respiratory: bilateral: CTA - Cardiovascular Rhythm: regular Heart sounds: normal: S1, S2 - Gastrointestinal General gastrointestinal: Present: normal bowel sounds, soft - Integumentary Integumentary: Present: normal - Neurologic Neurologic: Present: CNII-XII intact - Musculoskeletal Musculoskeletal: Present: strength equal bilaterally - Psychiatric Psychiatric: Present: A&O x's 3, appropriate affect - Labs CBC & Chem 7: 01/21/18 06:32 01/21/18 06:32 Labs: Abnormal Lab Results - Last 24 Hours (Table) 01/20/18 01/20/18 01/20/18 Range/Units 07:02 11:02 16:38 MCV (80.0-100.0) fL MCH (25.0-35.0) pg RDW (11.5-15.5) % Sodium (137-145) mmol/L Chloride (98-107) mmol/L Creatinine (0.52-1.04) mg/dL Glucose (74-99) mg/dL POC Glucose (mg/dL) 129 H 114 H (75-99) mg/dL Osmolality 256 L (280-301) mosm/kg Uric Acid 1.6 L (3.7-7.4) mg/dL 01/20/18 01/21/18 01/21/18 Range/Units 20:31 06:32 06:32 MCV 74.1 L (80.0-100.0) fL MCH 24.7 L (25.0-35.0) pg RDW 19.5 H (11.5-15.5) % Sodium 128 L (137-145) mmol/L Chloride 92 L (98-107) mmol/L Creatinine 0.34 L (0.52-1.04) mg/dL Glucose 127 H (74-99) mg/dL POC Glucose (mg/dL) 109 H (75-99) mg/dL Osmolality (280-301) mosm/kg Uric Acid (3.7-7.4) mg/dL 01/21/18 Range/Units 06:46 MCV (80.0-100.0) fL MCH (25.0-35.0) pg RDW (11.5-15.5) % Sodium (137-145) mmol/L Chloride (98-107) mmol/L Creatinine (0.52-1.04) mg/dL Glucose (74-99) mg/dL POC Glucose (mg/dL) 150 H (75-99) mg/dL Osmolality (280-301) mosm/kg Uric Acid (3.7-7.4) mg/dL Microbiology - Last 24 Hours (Table) 01/19/18 00:10 Blood Culture - Preliminary Blood No Growth after 48 hours Assessment and Plan (1) New onset seizure Narrative/Plan: The MRI and EEG reports were reviewed and discussed with the patient. The EEG did not show any specific epileptiform focus. However the MRI did indicate that the patient was potentially having a posterior reversible encephalopathy syndrome. This is supported by marked fluctuations in blood pressure seen during this admission. Review of the literature indicates that TX ES is associated with seizures and other neurologic complications, which typically respond well to good blood pressure control. In addition interestingly, PRES can be precipitated by certain chemotherapeutic agents. Of note, the patient's regimen does contain some of those agents such as Adriamycin and vinblastine. The patient was therefore need appropriate blood pressure control, before she can be rechallenged with chemotherapy. I will discuss with the internal medicine service, and defer to them for further management in this regard, including the need for cardiology consultation. Current Visit: Yes Status: Acute Code(s): R56.9 - UNSPECIFIED CONVULSIONS SNOMED Code(s): 80046487 (2) Hodgkins lymphoma Narrative/Plan: Given the above, at this time her regimen will need to be on hold until her blood pressure appears to be better controlled. Current Visit: Yes Status: Acute Code(s): C81.90 - HODGKIN LYMPHOMA, UNSPECIFIED, UNSPECIFIED SITE SNOMED Code(s): 755654446
[2018-01-21] MEDS ORDERED: amLODIPine 5 MG TAB PO SCH (10:45)
[2018-01-21 11:08] LABS: Glucose,Whole Blood 80 mg/dL (75-99)
[2018-01-21] MEDS: FERROUS SULFATE 325 MG TAB PO SCH (12:21)
[2018-01-21] MEDS: LISINOPRIL 5 MG TAB PO SCH (12:21)
[2018-01-21] MEDS ORDERED: guaiFENesin 600 MG TABLET.ER PO PRN (15:39)
--- NOTE | 2018-01-21 16:07 | P.PN ---
Subjective Progress Note Date: 01/21/18 Progress note being dictated for Dr. Moreira. Interval history:72-year-old pleasant female with you done in diagnosed with Hodgkin's lymphoma completed 2 cycles of ABVD chemotherapy came in with complaints of 20 clinic activity witnessed by the and he felt the patient was apneic as well because of which she started doing CPR when EMS arrived patient has pulse and respirations. Patient doesn't remember the episode patient denied any loss of bowel or bladder continence. Patient lost consciousness briefly for a few minutes and woke up in the ambulance and was bit confused unsure how long the post ictal confusion lasted. Patient denied and tongue biting. EEG was ordered and neurology was consulted. Patient is alert and oriented 3 completely appropriate not confused. Patient is comparing of rib pain from CPR. Patient denied any other symptoms which will be detailed review of systems Review of Systems REVIEW OF SYSTEMS: CONSTITUTIONAL: No fever, no malaise, no fatigue. HEENT: No recent visual problems or hearing problems. Denied any sore throat. CARDIOVASCULAR: No chest pain, orthopnea, PND, no palpitations, no syncope. PULMONARY: No shortness of breath, no cough, no hemoptysis. GASTROINTESTINAL: No diarrhea, no nausea, no vomiting, no abdominal pain. Normoactive bowel sounds. NEUROLOGICAL: No headaches, no weakness, no numbness. HEMATOLOGICAL: Denies any bleeding or petechiae. GENITOURINARY: Denies any burning micturition, frequency, or urgency. MUSCULOSKELETAL/RHEUMATOLOGICAL: Denies any joint pain, swelling, or any muscle pain. ENDOCRINE: Denies any polyuria or polydipsia. The rest of the 14-point review of systems is negative. 01/20/2018 evaluated by neurology and oncology with recommendations noted. scheduled for a brain MRI this morning. EEG results pending. Echo reporting normal LV function, EF 55-60%. sodium 125 on IV fluids of 0.9 normal saline 100 MLS/ hr. no further seizure activity reported. Denies chest pain, palpitations or increased shortness of breath. Denies lightheadedness, dizziness or focal deficits. 01/21/2018 maintained on IV fluid hydration with sodium improving up to 128. Fluctuating hypertension,SBP ranging from 120s to 160s. Echo reporting normal LV function, EF 55-60%. Diet intake improving. EEG failed to report any epileptiform abnormalities. 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 Objective - Vital Signs Vital signs: Vital Signs Temp 97.7 F 01/21/18 07:10 Pulse 84 01/21/18 07:44 Resp 18 01/21/18 07:44 BP 167/88 01/21/18 07:10 Pulse Ox 100 01/21/18 07:10 Intake & Output 01/20/18 01/21/18 01/21/18 18:59 06:59 18:59 Weight 57.8 kg Other: Voiding Method Toilet Toilet Toilet # Voids 2 1 - Exam GENERAL: The patient is alert , sitting up in bed ,oriented x3, not in any acute distress. HEENT: Pupils are round and equally reacting to light. EOMI. No scleral icterus. No conjunctival pallor. Normocephalic, atraumatic. No pharyngeal erythema. No thyromegaly. CARDIOVASCULAR: S1 and S2 present. No murmurs, rubs, or gallops. PULMONARY: Chest is clear to auscultation, no wheezing or crackles. ABDOMEN: Soft, nontender, nondistended, normoactive bowel sounds. No palpable organomegaly. MUSCULOSKELETAL: No joint swelling or deformity. EXTREMITIES: No cyanosis, clubbing, or pedal edema. NEUROLOGICAL: Gross neurological examination did not reveal any focal deficits. SKIN: No rashes. - Labs CBC & Chem 7: 01/21/18 06:32 01/21/18 06:32 Labs: Abnormal Lab Results - Last 24 Hours (Table) 01/20/18 01/20/18 01/20/18 Range/Units 07:02 11:02 16:38 MCV (80.0-100.0) fL MCH (25.0-35.0) pg RDW (11.5-15.5) % Sodium (137-145) mmol/L Chloride (98-107) mmol/L Creatinine (0.52-1.04) mg/dL Glucose (74-99) mg/dL POC Glucose (mg/dL) 129 H 114 H (75-99) mg/dL Osmolality 256 L (280-301) mosm/kg 01/20/18 01/21/18 01/21/18 Range/Units 20:31 06:32 06:32 MCV 74.1 L (80.0-100.0) fL MCH 24.7 L (25.0-35.0) pg RDW 19.5 H (11.5-15.5) % Sodium 128 L (137-145) mmol/L Chloride 92 L (98-107) mmol/L Creatinine 0.34 L (0.52-1.04) mg/dL Glucose 127 H (74-99) mg/dL POC Glucose (mg/dL) 109 H (75-99) mg/dL Osmolality (280-301) mosm/kg 01/21/18 Range/Units 06:46 MCV (80.0-100.0) fL MCH (25.0-35.0) pg RDW (11.5-15.5) % Sodium (137-145) mmol/L Chloride (98-107) mmol/L Creatinine (0.52-1.04) mg/dL Glucose (74-99) mg/dL POC Glucose (mg/dL) 150 H (75-99) mg/dL Osmolality (280-301) mosm/kg Microbiology - Last 24 Hours (Table) 01/19/18 00:10 Blood Culture - Preliminary Blood No Growth after 48 hours Assessment and Plan Assessment: -Possibly of seizures: CAT scan of the head did not show any significant acute abnormality. MRI suggesting PRES -Hodgkin's lymphoma: Status post 2 cycles of chemotherapy with ABVD, oncology evaluated the patient -Type 2 diabetes mellitus -Chest wall pain: Musculoskeletal secondary to CPR will use a nonsteroidal anti- inflammatory medications Patient will need further neurologic DVT and GI prophylaxis Plan: Continue current medication regime ,monitoring and symptomatic treatment. Lisinopril added to med regime for her tighter blood pressure control. Close monitoring of blood pressure. Blood pressure may be elevated, related to IV fluid hydration.we'll reevaluate later this afternoon and possibly discontinue IV fluids, if patient's diet intake continues to improve .Maintain Seizure precautions. No anticonvulsants at this time as per neurology. Discharge planning in progress for tomorrow. The impression and plan of care has been dictated as directed. : I performed a history and examination of this patient, discussed the same with the dictator. I agree with the dictator's note ,documented as a scribe. Any additional findings or plans will be noted.
[2018-01-21] MEDS: guaiFENesin 600 MG TABLET.ER PO SCH (16:30)
[2018-01-21] MEDS: ASPIRIN 81 MG PO SCH (16:31)
--- NOTE | 2018-01-21 16:52 | P.PN ---
Subjective Progress Note Date: 01/21/18 This patient is a 72-year-old female who was admitted yesterday with possible new onset seizure. Patient has a recent diagnosis of Hodgkin's lymphoma and has undergone 2 cycles of chemotherapy. She was brought into the emergency room yesterday after having a possible seizure-like event. She apparently was sitting at the table and had an event of unresponsiveness. She appeared to be slightly confused following the event and she was subsequently admitted to Hospital. Patient underwent computed tomography scan of the brain in the ER which revealed no acute abnormality. She was subsequent admitted to the oncology floor she does have a history of Hodgkin's lymphoma. This was diagnosed recently in November 2017 and she follows with Dr. Rouse. Due to her history of the Hodgkin's lymphoma she was sent for MRI of the brain today. MRI revealed findings suggesting posterior reversible encephalopathy syndrome with chronic small vessel ischemic changes. There was age-related atrophy noted. No abnormal enhancement was seen with contrast administration. We reviewed the results of the MRI today with the patient. There were nonspecific changes in the parietal occipital region of the brain raising the question of PRES syndrome. Exact etiology of this condition is unknown. At this time would recommend consideration use of small dose of baby aspirin 81 mg daily. Would recommend tight control of blood pressure as well. She underwent routine EEG today which was also reviewed and is negative for any evidence of epileptiform discharges. Based on the MRI and EEG results we would recommend close observation at this time. Since she is on multiple medications would hold off on adding anticonvulsant at this time unless a recurrent event were to occur. As noted EEG failed to reveal any active seizure focus. Patient has been doing much better since admission to the hospital. Possibility of her seizure event related to her chemotherapy is a concern and she will discuss this later with Dr. Rouse in the outpatient setting. She has been treated with Vinblastine or Adriamycin which may be neurotoxic chemotherapy agents. We will await further recommendations from oncology. Would recommend follow-up in the outpatient neurology clinic in 3-4 weeks upon discharge. Overall prognosis at this time remains guarded. She was explained [employer] driving law in detail which states she cannot drive in the [facility] for appeared of 6 months following her last event of seizure-like activity. Patient is aware of this restriction and will depend on her for any driving needs. Tighter control of her blood pressure was recommended by Dr. Argueta today. Dr. Flanagan has started the patient on lisinopril 5 mg daily. We will monitor blood pressure log over the next 24 hours. She is much more awake and alert and is sitting up in eating her dinner and has had no further episodes since admission to hospital. Depending on how her blood pressure readings are tomorrow she may be considered for discharge home. Would recommend she follow up with Dr. Rouse on for his further evaluation and recommendations. Her overall prognosis at this time remains guarded. Objective - Vital Signs Vital signs: Vital Signs Temp 97.6 F 01/21/18 14:32 Pulse 87 01/21/18 15:38 Resp 18 01/21/18 15:38 BP 104/72 01/21/18 14:32 Pulse Ox 100 01/21/18 14:32 Intake & Output 01/20/18 01/21/18 01/21/18 18:59 06:59 18:59 Intake Total 200 Balance 200 Weight 57.8 kg Intake: Oral 200 Other: Voiding Method Toilet Toilet Toilet # Voids 2 1 4 - Exam Physical Examination: PHYSICAL EXAMINATION: Patient is resting comfortably in bed. VITAL SIGNS: Blood pressure is [104/72]. Heart rate is [87]. Respiration is [18] . Temperature is [97.7]. HEENT: Head is atraumatic, neck is supple, there were no carotid bruits. CHEST: Lungs are clear to auscultation and percussion. CARDIAC: S1, S2 normal rate and rhythm. There is no murmur. ABDOMEN: Soft and nontender. Bowel sounds are present. EXTREMITIES: There is no pedal edema. Peripheral pulses are present. Neurological examination: Patient has a nonfocal neurological examination today. Results of her MRI and EEG were discussed again with her and her at bedside in detail. - Labs CBC & Chem 7: 01/21/18 06:32 01/21/18 06:32 Labs: Abnormal Lab Results - Last 24 Hours (Table) 01/20/18 01/20/18 01/21/18 Range/Units 16:38 20:31 06:32 MCV 74.1 L (80.0-100.0) fL MCH 24.7 L (25.0-35.0) pg RDW 19.5 H (11.5-15.5) % Sodium (137-145) mmol/L Chloride (98-107) mmol/L Creatinine (0.52-1.04) mg/dL Glucose (74-99) mg/dL POC Glucose (mg/dL) 114 H 109 H (75-99) mg/dL 01/21/18 01/21/18 Range/Units 06:32 06:46 MCV (80.0-100.0) fL MCH (25.0-35.0) pg RDW (11.5-15.5) % Sodium 128 L (137-145) mmol/L Chloride 92 L (98-107) mmol/L Creatinine 0.34 L (0.52-1.04) mg/dL Glucose 127 H (74-99) mg/dL POC Glucose (mg/dL) 150 H (75-99) mg/dL Microbiology - Last 24 Hours (Table) 01/19/18 00:10 Blood Culture - Preliminary Blood No Growth after 48 hours Assessment and Plan (1) Hodgkins lymphoma Current Visit: Yes Status: Acute Code(s): C81.90 - HODGKIN LYMPHOMA, UNSPECIFIED, UNSPECIFIED SITE SNOMED Code(s): 321297294 (2) New onset seizure Current Visit: Yes Status: Acute Code(s): R56.9 - UNSPECIFIED CONVULSIONS SNOMED Code(s): 58498329 (3) Diabetes mellitus Current Visit: Yes Status: Acute Code(s): E11.9 - TYPE 2 DIABETES MELLITUS WITHOUT COMPLICATIONS SNOMED Code(s): 65208798 (4) Chemotherapy adverse reaction Current Visit: Yes Status: Acute Code(s): T45.1X5A - ADVERSE EFFECT OF ANTINEOPLASTIC AND IMMUNOSUP DRUGS, INIT SNOMED Code(s): 466951815 Plan: This patient is a 72-year-old female recently diagnosed with Hodgkin's lymphoma in November of this year. She has undergone 2 cycles of chemotherapy. She was admitted to Hospital for evaluation of possible new onset seizure. She underwent MRI of the brain with and without gadolinium as well as EEG testing. Results have been noted yesterday. MRI of the brain failed to reveal any enhancing lesions associated with her history of Hodgkin's lymphoma. There was suggestion of possible PRES syndrome related to uncontrolled hypertension as a cause. Dr. Argueta is recommending tighter control of blood pressure for the patient. She was started on lisinopril today 5 mg daily and we will need to monitor her blood pressure log. Her routine EEG was reviewed and is negative for any evidence of epileptic seizure focus. At this time we are monitoring the patient for any further spells or episodes of seizure-like activity. She has been doing very well since admission to hospital. Would recommend tight control of her blood pressure due to the question of PRES syndrome. Patient is feeling quite well today and is anticipating possible discharge home tomorrow. Would recommend she follow-up with Dr. Rouse on for his further recommendations regarding ongoing chemotherapy plans. As per Dr. Argueta once her blood pressure is regulated she may be considered for ongoing chemotherapy as she has completed 2 cycles thus far for treatment of her Hodgkin's lymphoma. We will continue to follow her progress closely during this admission. Case was discussed at length with the patient and her at bedside today. All of their questions were answered. They are aware of our recommendations and we will continue close follow-up for the patient until discharge. Would continue close monitoring of her blood pressure during this admission. As mentioned new antihypertensive medication was started today. We will await further recommendations from Dr. Argueta.
[2018-01-21 17:04] LABS: Glucose,Whole Blood 116 mg/dL (75-99)
[2018-01-21 20:02] LABS: Glucose,Whole Blood 124 mg/dL (75-99)
[2018-01-21 21:00] VITALS: RESP 16
[2018-01-22] MEDS: PROCHLORPERAZINE 10 MG TAB PO SCH ×2 (02:18→07:45)
[2018-01-22 05:21] VITALS: BP 130/60; PULSE 72; TEMP 97.8
[2018-01-22 07:06] LABS: Glucose,Whole Blood 128 mg/dL (75-99)
[2018-01-22] MEDS: INSULIN ASPART 100 UNIT/ML 1 ML 10 ML VIAL SQ SCH (07:39)
[2018-01-22] MEDS: DOCUSATE 100 MG CAP PO SCH (07:45)
[2018-01-22] MEDS: FAMOTIDINE 20 MG TAB PO SCH (07:45)
[2018-01-22] MEDS: CHOLECALCIFEROL 1,000 UNIT TAB PO SCH (07:45)
[2018-01-22] MEDS: ASPIRIN 81 MG PO SCH (07:45)
[2018-01-22] MEDS: guaiFENesin 600 MG TABLET.ER PO SCH (07:46)
[2018-01-22] MEDS: VIT A,C & E-LUTEIN-MINERALS 1 EACH TAB PO SCH (07:46)
[2018-01-22] MEDS: LISINOPRIL 5 MG TAB PO SCH (07:46)
[2018-01-22] MEDS: HEPARIN SODIUM,PORCINE 5,000 UNIT/ML 1 ML VIAL SQ SCH (07:47)
[2018-01-22] MEDS: ACETAMINOPHEN TAB 325 MG TAB PO PRN (07:58)
[2018-01-22] MEDS: FERROUS SULFATE 325 MG TAB PO SCH (11:15)
[2018-01-22 11:27] LABS: Anisocytosis Slight; Basophils % (A) 1 %; Eosinophils # (A) 0.3 k/uL (0-0.7); Eosinophils % (A) 5 %; HGB 11.3 gm/dL (11.4-16.0); Hypochromasia Slight; Lymphocytes # (A) 1.6 k/uL (1.0-4.8); Lymphocytes % (A) 23 %; MCH 24.8 pg (25.0-35.0); MCHC 33.1 g/dL (31.0-37.0); Mean Platelet Volume 6.7; Microcytosis Moderate; Monocytes # (A) 0.2 k/uL (0-1.0); Monocytes % (A) 3 %; Neutrophils # (A) 4.5 k/uL (1.3-7.7); Neutrophils % (A) 66 %; Platelet Count 311 k/uL (150-450); Poikilocytosis Slight; RBC 4.54 m/uL (3.80-5.40); RDW 19.5 % (11.5-15.5); WBC 6.8 k/uL (3.8-10.6)
[2018-01-22 11:38] LABS: Anion Gap 12 mmol/L; Blood Urea Nitrogen 18 mg/dL (7-17); Carbon Dioxide 26 mmol/L (22-30); Chloride 96 mmol/L (98-107); Glucose 90 mg/dL (74-99); Sodium 134 mmol/L (137-145)
--- NOTE | 2018-01-22 13:38 | P.PN ---
Subjective Progress Note Date: 01/22/18 Principal diagnosis: seizure, on Tx for HL Patient seen today in follow-up, no further seizure activity, her chest and ribs are little sore, she believes from her doing chest compressions, no vision changes, headache, she is ambulating independently without significant weakness or deficit. Patient definitely feels that she is thinking more clearly Objective - Vital Signs Vital signs: Vital Signs Temp 97.8 F 01/22/18 05:20 Pulse 72 01/22/18 08:00 Resp 16 01/22/18 08:00 BP 130/60 01/22/18 05:20 Pulse Ox 99 01/22/18 05:20 Intake & Output 01/21/18 01/22/18 01/22/18 18:59 06:59 18:59 Intake Total 200 Balance 200 Weight 57.8 kg Intake: Oral 200 Other: Voiding Method Toilet Toilet Toilet # Voids 4 2 - Constitutional General appearance: Present: cooperative, no acute distress, thin - EENT Eyes: Present: anicteric sclerae, EOMI - Respiratory Respiratory: bilateral: diminished - Cardiovascular Heart sounds: normal: S1, S2 - Peripheral edema leg Peripheral Edema: bilateral: None - Gastrointestinal General gastrointestinal: Present: normal bowel sounds, soft - Neurologic Neurologic: Present: CNII-XII intact - Musculoskeletal Musculoskeletal: Present: strength equal bilaterally - Psychiatric Psychiatric: Present: A&O x's 3, appropriate affect, intact judgment & insight - Labs CBC & Chem 7: 01/22/18 10:49 01/22/18 10:49 Labs: Abnormal Lab Results - Last 24 Hours (Table) 01/21/18 01/21/18 01/22/18 Range/Units 17:01 20:00 07:05 Hgb (11.4-16.0) gm/dL MCV (80.0-100.0) fL MCH (25.0-35.0) pg RDW (11.5-15.5) % Sodium (137-145) mmol/L Chloride (98-107) mmol/L BUN (7-17) mg/dL Creatinine (0.52-1.04) mg/dL POC Glucose (mg/dL) 116 H 124 H 128 H (75-99) mg/dL 01/22/18 01/22/18 Range/Units 10:49 10:49 Hgb 11.3 L (11.4-16.0) gm/dL MCV 75.0 L (80.0-100.0) fL MCH 24.8 L (25.0-35.0) pg RDW 19.5 H (11.5-15.5) % Sodium 134 L (137-145) mmol/L Chloride 96 L (98-107) mmol/L BUN 18 H (7-17) mg/dL Creatinine 0.45 L (0.52-1.04) mg/dL POC Glucose (mg/dL) (75-99) mg/dL Microbiology - Last 24 Hours (Table) 01/19/18 00:10 Blood Culture - Preliminary Blood No Growth after 72 hours Assessment and Plan (1) New onset seizure Status: Acute Code(s): R56.9 - UNSPECIFIED CONVULSIONS SNOMED Code(s): 73361030 (2) Reversible posterior leukoencephalopathy Narrative/Plan: Due to chemotherapy, symptoms, presentation, work -up findings, symptom improvement with treatment of blood pressure suspect RPLS secondary to chemotherapy. patient will continue blood pressure medications with diligent BP monitoring. Patient sees Dr. Rouse tomorrow and further treatment plans will be decided at that time. I asked patient her understanding of the situation, she was clear about the diagnosis as well as the treatment. All questions answered to her satisfaction. Status: Acute Priority: High Code(s): G93.6 - CEREBRAL EDEMA SNOMED Code(s ): 2823986 (3) Hodgkins lymphoma Narrative/Plan: Patient is status post first cycle of ABVD, plans for future treatment to be decided after resolution of current situation. Status: Acute Priority: High Code(s): C81.90 - HODGKIN LYMPHOMA, UNSPECIFIED , UNSPECIFIED SITE SNOMED Code(s): 281627793
--- NOTE | 2018-01-22 14:41 | P.DS ---
Providers Date of admission: 01/21/18 17:15 Expected date of discharge: 01/22/18 Attending physician: Zohra Flanagan Consults: 01/19/18 03:10 Consult Physician Routine Consulting Provider: Mesha Tony Consult Reason/Comments: suspected seizure Do you want consulting provider notified?: Yes 01/19/18 04:30 Consult Physician Routine Consulting Provider: Hamlet Rouse Consult Reason/Comments: known to physician; recently began chemo - new onset seizures Do you want consulting provider notified?: Yes Primary care physician: Dalia Mcgowan [facility] Course: Final Diagnoses: -Possible new onset seizures: CAT scan of the head did not show any significant acute abnormality. MRI suggesting PRES. no anticonvulsants recommended at this time as per neurology. -Hodgkin's lymphoma: Status post 2 cycles of chemotherapy with ABVD, further treatments to be discussed OP pending controlled BP. -Type 2 diabetes mellitus -Chest wall pain: Musculoskeletal secondary to CPR will use a nonsteroidal anti- inflammatory medications Hospital course:72-year-old pleasant female with you done in diagnosed with Hodgkin's lymphoma completed 2 cycles of ABVD chemotherapy came in with complaints of 20 clinic activity witnessed by the and he felt the patient was apneic as well because of which she started doing CPR when EMS arrived patient has pulse and respirations. Patient doesn't remember the episode patient denied any loss of bowel or bladder continence. Patient lost consciousness briefly for a few minutes and woke up in the ambulance and was bit confused unsure how long the post ictal confusion lasted. Patient denied and tongue biting. EEG was ordered and neurology was consulted. Patient is alert and oriented 3 completely appropriate not confused. Patient is comparing of rib pain from CPR. Evaluated by oncology, nephrology. Maintained on IV fluid hydration with sodium normalized. Echo reporting normal LV function, EF 55-60%. EEG failed to report any epileptiform abnormalities. 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 Placed on NOHEMI inhibitor with blood pressure controlled . Significant clinical improvement. Patient has been cleared by both neurology and oncology for discharge. Patient is being discharged home in a stable condition with guarded prognosis. GENERAL: The patient is alert , sitting up at side of bed ,oriented x3, not in any acute distress. CARDIOVASCULAR: S1 and S2 present. No murmurs, rubs, or gallops. PULMONARY: Chest is clear to auscultation, no wheezing or crackles. ABDOMEN: Soft, nontender, nondistended, normoactive bowel sounds. No palpable organomegaly. NEUROLOGICAL: Gross neurological examination did not reveal any focal deficits. The impression and plan of care has been dictated as directed. : I performed a history and examination of this patient, discussed the same with the dictator. I agree with the dictator's note ,documented as a scribe. Any additional findings or plans will be noted. Time taken: 35 minutes Patient Condition at Discharge: Stable Plan - Discharge Summary Discharge Rx Participant: No New Discharge Prescriptions: New Aspirin EC [Ecotrin Low Dose] 81 mg PO DAILY #30 tablet. Docusate [Colace] 100 mg PO BID #0 cap Famotidine [Pepcid] 20 mg PO BID #60 tab guaiFENesin [Mucinex] 1,200 mg PO Q12HR tablet.er Lisinopril [Zestril] 5 mg PO DAILY #30 tab Continue metFORMIN HCL [Glucophage] 500 mg PO AC-BID Ferrous Sulfate [Iron (65 MG Elemental)] 325 mg PO DAILY Cholecalciferol [Vitamin D3] 1,000 unit PO BID Vit C/E/Zn/Coppr/Lutein/Zeaxan [Preservision Areds 2 Softgel] 1 each PO BID ALPRAZolam [Xanax] 0.5 mg PO TID PRN PRN Reason: Anxiety Prochlorperazine [Compazine] 10 mg PO Q6H Discharge Medication List metFORMIN HCL [Glucophage] 500 mg PO AC-BID 03/01/16 [History] ALPRAZolam [Xanax] 0.5 mg PO TID PRN 12/04/17 [History] Cholecalciferol [Vitamin D3] 1,000 unit PO BID 12/04/17 [History] Ferrous Sulfate [Iron (65 MG Elemental)] 325 mg PO DAILY 12/04/17 [History] Vit C/E/Zn/Coppr/Lutein/Zeaxan [Preservision Areds 2 Softgel] 1 each PO BID [History] Prochlorperazine [Compazine] 10 mg PO Q6H 01/19/18 [History] Aspirin EC [Ecotrin Low Dose] 81 mg PO DAILY #30 tablet.dr 01/22/18 [Rx] Docusate [Colace] 100 mg PO BID #0 cap 01/22/18 [Rx] Famotidine [Pepcid] 20 mg PO BID #60 tab 01/22/18 [Rx] Lisinopril [Zestril] 5 mg PO DAILY #30 tab 01/22/18 [Rx] guaiFENesin [Mucinex] 1,200 mg PO Q12HR tablet.er 01/22/18 [Rx] Follow up Appointment(s)/Referral(s): Sebastián Tony MD [STAFF PHYSICIAN] - 02/14/18 11:00 am Mikki Zaragoza NPC [REFERRING] - 01/29/18 1:20 pm Hamlet Rouse MD [STAFF PHYSICIAN] - 01/23/18 4:15 pm Ambulatory/Diagnostic Orders: Complete Blood Count w/diff [LAB.AMB] Time Frame: 3 Days, Location: Determined By Patient Patient Instructions/Handouts: Lisinopril (By mouth), Famotidine (By mouth), Aspirin (By mouth), New-Onset Seizure in Adults (DC) Activity/Diet/Wound Care/Special Instructions: Diet: Heart Healthy, Consistent Carb Activity: as tolerated Discharge Disposition: HOME SELF-CARE
== END 2018-01-22 12:40 | disposition home or self-care (01) | DRG 71 ==
LOC: SUPCPDRO 00:02 → EC 00:02 → OBSVTOIN 03:09 → INTOOBSV 03:09 → UNDOADMOB 03:09 → 6SEL 03:09 → 5ONC 13:57 → 6SEL 13:57 → OBSVTOIN 01-21 17:15
PROVIDERS: ADMIT Hospitalist; ATTEND Hospitalist
DX: I67.83 Posterior reversible encephalopathy syndrome (principal); C81.90 Hodgkin lymphoma, unspecified, unspecified site; R40.2142 Coma scale, eyes open, spontaneous, at arrival to emergency department; R40.2362 Coma scale, best motor response, obeys commands, at arrival to emergency department; R40.2252 Coma scale, best verbal response, oriented, at arrival to emergency department; E11.9 Type 2 diabetes mellitus without complications; R07.89 Other chest pain; M19.91 Primary osteoarthritis, unspecified site; T45.1X5A Adverse effect of antineoplastic and immunosuppressive drugs, initial encounter; H35.3190 Nonexudative age-related macular degeneration, unspecified eye, stage unspecified; F32.9 Major depressive disorder, single episode, unspecified; L40.9 Psoriasis, unspecified; Z79.84 Long term (current) use of oral hypoglycemic drugs; Z79.899 Other long term (current) drug therapy; Z86.010 Personal history of colon polyps; Z92.21 Personal history of antineoplastic chemotherapy; Z90.49 Acquired absence of other specified parts of digestive tract; Z87.891 Personal history of nicotine dependence; Z88.1 Allergy status to other antibiotic agents; D64.9 Anemia, unspecified
CPT/HCPCS: 36415; 70450; 70553; 71045; 80048; 80053; 80306; 81001; 82550; 82553; 83036; 83605; 83615; 83930; 83935; 84133; 84300; 84484; 84550; 85025; 85610; 85730; 87040; 93005; 93306; 94760; 95819; 96361; 96374; 99285

== ENCOUNTER → 2018-03-17 | Outpatient (CLI) | payer MEDICARE ==
--- NOTE | 2018-03-17 11:26 | ECHOF ---
Referral Reason:C81.98 Lymphoma Z01.818 Chemo MEASUREMENTS -------- HEIGHT: 154.9 cm WEIGHT: 63.5 kg BP: IVSd: 1.1 cm (0.6 - 1.1) LVIDd: 4.4 cm (3.9 - 5.3) LVPWd: 1.1 cm (0.6 - 1.1) IVSs: 1.6 cm LVIDs: 2.2 cm LVPWs: 1.7 cm LAESV Index (A-L): 29.98 ml/m Ao Diam: 2.8 cm (2.0 - 3.7) AV Cusp: 1.9 cm (1.5 - 2.6) LA Diam: 2.5 cm (2.7 - 3.8) EPSS: 1.6 cm MV E Heath: 0.66 m/s MV DecT: 246 ms MV A Heath: 0.92 m/s MV E/A Ratio: 0.72 RAP: 5.00 mmHg RVSP: 26.90 mmHg MV EF SLOPE: 138.87 mm/s (70 - 150) MV EXCURSION: 1.64 cm (> 18.000) FINDINGS -------- Sinus rhythm. This was a technically good study. The left ventricular size is normal. There is mild concentric left ventricular hypertrophy. Overa ll left ventricular systolic function is normal with, an EF between 55 - 60 %. The right ventricle is normal in size and function. The left atrium is normal in size. The right atrium is normal in size. The aortic valve is trileaflet, and appears structurally normal. No aortic stenosis or regurgitation. Normal appearing mitral valve. Mild mitral regurgitation is present. Mild tricuspid regurgitation present. The right ventricular systolic pressure, as measured by Doppl er, is 26.90mmHg. Pulmonic valve appears structurally normal. The aortic root size is normal. Normal inferior vena cava with normal inspiratory collapse consistent with estimated right atrial pre ssure of 5 mmHg. The pericardium is normal. CONCLUSIONS -------- 1. Sinus rhythm. 2. This was a technically good study. 3. The left ventricular size is normal. 4. There is mild concentric left ventricular hypertrophy. 5. Overall left ventricular systolic function is normal with, an EF between 55 - 60 %. 6. The right ventricle is normal in size and function. 7. The left atrium is normal in size. 8. The right atrium is normal in size. 9. The aortic valve is trileaflet, and appears structurally normal. No aortic stenosis or regurgitati on. 10. Normal appearing mitral valve. 11. Mild mitral regurgitation is present. 12. Mild tricuspid regurgitation present. 13. The right ventricular systolic pressure, as measured by Doppler, is 26.90mmHg. 14. Pulmonic valve appears structurally normal. 15. The aortic root size is normal. 16. Normal inferior vena cava with normal inspiratory collapse consistent with estimated right atrial pressure of 5 mmHg. 17. The pericardium is normal. PRESCHOOL PARAPROFESSIONAL: Tami Stoddard RDCS
== END | disposition home or self-care (01) ==
LOC: RADECHMAIN 11:03
PROVIDERS: ATTEND Internal Medicine Hematology & Oncology
DX: Z01.818 Encounter for other preprocedural examination (principal); I08.1 Rheumatic disorders of both mitral and tricuspid valves; C81.98 Hodgkin lymphoma, unspecified, lymph nodes of multiple sites
CPT/HCPCS: 93306

== ENCOUNTER → 2018-03-22 | Outpatient (CLI) | payer MEDICARE ==
--- NOTE | 2018-03-23 13:29 | PE ---
EXAMINATION TYPE: PET CT fusion skull to thigh DATE OF EXAM: 03/22/2018 COMPARISON: Most recent chest CT 11/19/2017 Prior PET/CT: 12/07/2017 HISTORY: Lymphoma TECHNIQUE: Following the intravenous administration of 12.141 mCi of F-18 FDG, whole body images are performed from the skull base to the midthigh. Images are reviewed on the computer in the coronal, axial, and sagittal planes. Reconstructed rotating images are created on independent workstation and reviewed on the computer. A localization and attenuation correction CT is performed in conjunction with the PET scan. DLP: 329.02 mGycm SCAN: Subsequent Scan Blood glucose: 104 mg/dL Average Mediastinum SUV: 0.93 Average Liver SUV: 1.66 FINDINGS: NECK: No suspicious uptake THORAX: There appears to be some subtle uptake and a healing or old rib fracture anteriorly right kvng st. 101 and 109. Additional similar finding from the suspected fracture in the anterior lateral left rib 12. Suspicious uptake is not identified. ABDOMEN: No suspicious uptake PELVIS: No suspicious uptake OSSEOUS STRUCTURES: Old or healing rib fractures on the anterior lateral bilateral ribs discussed und er the thorax. No suspicious uptake within osseous structures evident. LOCALIZATION CT: Gallstones are present. COMPARISON: Previous suspicious neck lymphadenopathy has normal radiotracer accumulation at this time . No suspicious uptake is evident. Scattered shotty lymphadenopathy remains present on the localizati on CT. Couple borderline sized lymph nodes are in the right axillary region. Right axillary surgical clips are present. Small lymphadenopathy is within the left axillary region. Previous suspicious medi astinal or axillary adenopathy has resolved. Previous liver lesion is not identified. Scattered small inguinal lymph nodes remain. Previous pelvic and right inguinal hypermetabolic adenopathy has resolv ed. IMPRESSION: 1. Resolution of previous hypermetabolic uptake within lymph nodes within the bilateral neck and the mediastinum. 2. Some shotty lymphadenopathy remains present on the localization CT. 3. Resolution of previous hypermetabolic lymph nodes within the right inguinal and pelvic region. 4. Nonvisualization of previous abnormal hyperintensity within the liver. 5. There appear to be healing fractures of the anterior lateral lower ribs bilaterally.
== END ==
LOC: RADPETMAIN 07:19
PROVIDERS: ATTEND Internal Medicine Hematology & Oncology
DX: C81.98 Hodgkin lymphoma, unspecified, lymph nodes of multiple sites (principal); E11.9 Type 2 diabetes mellitus without complications; Z79.84 Long term (current) use of oral hypoglycemic drugs
CPT/HCPCS: 78815; A9552

== ENCOUNTER 2018-06-24 05:36 | Day surgery (SDC) | payer MEDICARE ==
[2018-06-19 15:49] VITALS: BMI 28.7
[2018-06-24] MEDS: LACTATED RINGERS 1,000 ML IV SCH ×2 (06:30→07:05)
[2018-06-24] MEDS ORDERED: LIDOCAINE 1% 20 ML VIAL (10MG/ML) FOR IV START INTRADERMA ONE (06:30)
[2018-06-24 06:36] VITALS: RESP 16; TEMP 97.7
[2018-06-24 06:39] LABS: Glucose,Whole Blood 107 mg/dL (75-99)
[2018-06-24] MEDS ORDERED: LIDOCAINE 1% INJ 10MG/ML (20 ML MDV) ONE (07:06)
[2018-06-24] MEDS ORDERED: PROPOFOL 10 MG/ML 20 ML VIAL IV ONE (07:06)
[2018-06-24 07:41] VITALS: BP 117/76; PULSE 68
[2018-06-24 07:47] LABS: Basophils % (A) 1 %; Eosinophils # (A) 0.6 k/uL (0-0.7); Eosinophils % (A) 11 %; HCT 35.6 % (34.0-46.0); HGB 12.1 gm/dL (11.4-16.0); Lymphocytes % (A) 19 %; MCH 28.3 pg (25.0-35.0); MCV 83.4 fL (80.0-100.0); Mean Platelet Volume 6.5; Monocytes # (A) 0.4 k/uL (0-1.0); Monocytes % (A) 8 %; Neutrophils # (A) 3.2 k/uL (1.3-7.7); Neutrophils % (A) 60 %; Platelet Count 237 k/uL (150-450); Poikilocytosis Slight; RBC 4.26 m/uL (3.80-5.40); RDW 15.5 % (11.5-15.5); WBC 5.4 k/uL (3.8-10.6)
--- NOTE | 2018-06-24 08:21 | PCN ---
PROCEDURE NOTE DATE OF SERVICE: 06/24/2018 PREOPERATIVE DIAGNOSIS: Hodgkin disease. POSTOPERATIVE DIAGNOSIS: Hodgkin disease. PROCEDURE: Bone marrow aspirate and biopsy. SITE: Right iliac crest. ANESTHESIA: Local with IV systemic sedation. DETAILS: Utilizing sterile technique, the skin overlying the right iliac crest was prepared with Betadine and alcohol. After adequate sterile draping, local anesthesia and systemic sedation, a size 11, 4-inch Jamshidi needle was utilized to access the periosteum with ease. A total of 16 mL of aspirate and no actual core biopsies obtained. The patient tolerated the procedure very well. There was no immediate procedure related complications. TOTAL BLOOD LOSS: Less than 1 mL. RESULTS: Pending. MMODL / IJN: [id number] /
== END 2018-06-24 08:02 | disposition home or self-care (01) ==
LOC: OR 05:36
PROVIDERS: ATTEND Internal Medicine Hematology & Oncology
DX: C81.90 Hodgkin lymphoma, unspecified, unspecified site (principal); L40.9 Psoriasis, unspecified; E11.9 Type 2 diabetes mellitus without complications; Z79.84 Long term (current) use of oral hypoglycemic drugs; D50.9 Iron deficiency anemia, unspecified; I10 Essential (primary) hypertension; H35.30 Unspecified macular degeneration; G40.909 Epilepsy, unspecified, not intractable, without status epilepticus; Z87.891 Personal history of nicotine dependence; K12.31 Oral mucositis (ulcerative) due to antineoplastic therapy; Z92.21 Personal history of antineoplastic chemotherapy; Z79.82 Long term (current) use of aspirin; Z79.899 Other long term (current) drug therapy; Z88.1 Allergy status to other antibiotic agents
CPT/HCPCS: 85025; 38222; J2001; J2704

== ENCOUNTER → 2018-07-05 | Outpatient (CLI) | payer MEDICARE ==
--- NOTE | 2018-07-07 09:57 | PE ---
EXAMINATION TYPE: PET CT fusion skull to thigh DATE OF EXAM: 07/05/2018 COMPARISON: 12/07/2017 and 03/22/2018 PET/CT and CT chest dated 11/19/2017 HISTORY: Lymphoma. Progress exam. Surveillance and interval change. TECHNIQUE: Following the intravenous administration of 12.86 mCi of F-18 FDG, whole body images are performed from the skull base to the midthigh. Images are reviewed on the computer in the coronal, a xial, and sagittal planes. Reconstructed rotating images are created on independent workstation and reviewed on the computer. A localization and attenuation correction CT is performed in conjunction with the PET scan. SCAN: Subsequent FINDINGS: Thoracic background: 1.35 Abdominal background: 2.45 SKULL BASE AND NECK: The right thyroid lobe has a maximum SUV of 1.9 cm and is enlarged with a nodule measuring up to 4.2 cm. Left thyroid nodules are also seen. The previously seen lymph node directly adjacent to the right hyoid bone that was hypermetabolic on [facility] exam of 12/07/2017 measures only 7 mm in short axis and has a diminished SUV of 1.79 in comparison to that prior exam, only slightly above mediastinal background. On the left at this location there is a 6 mm nonhypermetabolic nonenlarged left-sided lymph node. No greater than 1 cm short axis lymph no sujata are seen within the neck. No other hypermetabolic lymph nodes are also seen within the neck. The previously seen right-sided supraclavicular adenopathy has also resolved with lymph nodes below media stinal background (0.4-1.16 SUVs). These are also nonenlarged measuring up to 6 mm in short axis on t he right and 7 mm on the left. CHEST, MEDIASTINUM, AND HILAR REGION: There is focal hypermetabolic uptake within the left anterior c ompartment musculature on the shoulder with a maximum SUV of 2.99. This could relate to myositis and less likely soft tissue lymphomatous involvement. The previously seen multifocal osseous uptake has i mproved. No hypermetabolic uptake is seen. The previous clival uptake now measures only maximum SUV o f 1.73. Humeral uptake has diminished. Pelvic uptake also measures a maximum SUV of 1.7. Spine measur es a maximum uptake of 1.57. No other suspicious hypermetabolic uptake. ABDOMEN AND PELVIS: No suspicious hypermetabolic uptake. The previously seen suspicious superficial i nguinal adenopathy on the prior of 12/07/2017 resolved. No hypermetabolic uptake within inguinal or irby perficial inguinal lymph nodes. No enlarged lymph nodes. OSSEOUS STRUCTURES: No suspicious hypermetabolic uptake. OTHER CT: Multifocal scattered atelectasis and pleural parenchymal scarring are seen. Atheromatous ch anges are noted of the coronary arteries and aorta, overall mild. Small hiatal hernia is present. The re is a stable hypoattenuated nonspecific hepatic lesion that is not hypermetabolic. Few punctate susie ign granulomas are seen within the liver. The spleen is enlarged measuring 15.0 cm in long axis. No h ypermetabolic uptake is seen within the spleen. There are lamellated gallstones. Mild atheromatous changes of the aorta are noted. There are multiple lobulated probable uterine leiomyomas some of which contain internal dystrophic calcifications from degeneration. Few colonic diverticula are noted without pericolonic fat stranding. There is redemonst ration of healed anterior rib fractures seen on the prior. IMPRESSION: 1. Stable disease. There is only one nonenlarged slightly hypermetabolic 7 mm short axis right cervic al chain lymph node (level II) with SUV diminished greater than 50% from the prior of 12/07/2017. No o ther enlarged or hypermetabolic lymph nodes within the chest, abdomen, or pelvis. 2. Hypermetabolic osseous uptake is also resolved from the 12/07/2017. Left shoulder muscular uptake l ikely relates to myositis. Correlate with left shoulder pain. 3. Hypermetabolic enlarged heterogenous thyroid gland with a right thyroid nodule measuring up to 4.2 cm. This was also seen on the prior ultrasound of 11/28/2017 and although appears similar in size giv en the hypermetabolic uptake fine-needle aspiration would be recommended if not previously performed as recommended on the prior ultrasound. 4. Splenomegaly without hypermetabolic uptake.
== END | disposition home or self-care (01) ==
LOC: RADPETMAIN 07:03
PROVIDERS: ATTEND Internal Medicine Hematology & Oncology
DX: C81.78 Other Hodgkin lymphoma, lymph nodes of multiple sites (principal); E04.1 Nontoxic single thyroid nodule; R16.1 Splenomegaly, not elsewhere classified
CPT/HCPCS: 78815; A9552

== ENCOUNTER → 2018-08-05 | Outpatient (CLI) | payer MEDICARE ==
--- NOTE | 2018-08-05 14:59 | US ---
EXAMINATION TYPE: US thyroid st tissue head/neck DATE OF EXAM: 08/05/2018 COMPARISON: US 11/28/17, PET Scan 12/07/17, CT 01/19/18 CLINICAL HISTORY: E04.1 THYROID NODULE. f/u size of nodules. Patient went through chemo for Hodgkens disease. GLAND SIZE: Right Lobe: 5.9 x 2.4 x 2.9 cm Overall Parenchyma: heterogenous Left Lobe: 5.1 x 1.8 x 1.7 cm Overall Parenchyma: heterogeneous Isthmus Thickness: 0.7 cm NODULES RIGHT: # of nodules measured on right: 2 1. 4.9 X 4.1 x 2.8 cm hypoechoic solid nodule at the lower pole with well-defined margins; . This nodule is wider than tall and shows intranodular vascularity. Prior size: 4.1 x 2.8 x 4.2 cm 2. 1.5 X 1.2 x 0.8 cm hypoechoic solid nodule at the mid pole with well-defined margins; . This nod ule is wider than tall and shows intranodular vascularity. Prior size: 1.4 x 0.9 x 1.5 cm LEFT: # of nodules measured on left: 3 1. 2.3 X 1.6 x 1.9 cm hypoechoic solid nodule at the lower pole with well-defined margins; . This nodule is wider than tall and shows intranodular vascularity. Prior size: 1.7 x 1.7 x 1.6 cm 2. 1.8 X 1.6 x 1.2 cm hypoechoic solid nodule at the mid pole with well-defined margins; . This nod ule is wider than tall and shows intranodular vascularity. Prior size: No previous 3. 1.4 X 1.4 x 0.8 cm hypoechoic solid nodule at the upper pole with well-defined margins; . This n odule is wider than tall and shows intranodular vascularity. Prior size: 1.4 x 1.3 x 1.1 cm ISTHMUS: # of nodules measured in the isthmus: 0 Bilateral neck scanned, no evidence of lymphadenopathy. Large lymph nodes seen previously not seen today. IMPRESSION: 1. Interval growth of the dominant bilateral heterogenous thyroid nodules in an overall enlarged mult inodular goiter. Bilateral fine-needle aspiration is again recommended if not previously performed. 2. The previously seen adenopathy surrounding the thyroid gland has resolved in comparison to the ult rasound of 11/28/2017.
== END | disposition home or self-care (01) ==
LOC: RADUSWWP 13:42
PROVIDERS: ATTEND Internal Medicine Hematology & Oncology
DX: E04.2 Nontoxic multinodular goiter (principal)
CPT/HCPCS: 76536

== ENCOUNTER 2018-08-08 06:09 | Day surgery (SDC) | payer MEDICARE ==
[2018-08-05 13:31] VITALS: BMI 30.7
[~2018-08-08 06:09] MED LIST changes: +DEXAMETHASONE SOD PHOSPHATE 10 MG/ML 1 ML VIAL IV ONE; +HYDROmorphone 0.5 MG/0.5 ML SYRINGE IVP PRN; +LACTATED RINGERS 1,000 ML IV SCH; +MIDAZOLAM (PF) 2 MG/2 ML VIAL IV PRN; +ONDANSETRON 4 MG/2 ML VIAL IVP ONE; -Pre Op ABX Message 1 EACH MISC MISCELLANE ONE; +ceFAZolin IN SWFI 2 GM/20 ML SYRINGE IVP ONE
[2018-08-08] MEDS ORDERED: LIDOCAINE 1% 20 ML VIAL (10MG/ML) FOR IV START INTRADERMA ONE (06:35)
[2018-08-08 06:39] VITALS: TEMP 97.8
[2018-08-08 06:42] LABS: Glucose,Whole Blood 104 mg/dL (75-99)
[2018-08-08] MEDS ORDERED: LIDOCAINE (PF) 10 MG/ML 5ML AMP SQ ONE ×3 (07:15→08:07)
--- NOTE | 2018-08-08 07:39 | P.GSHP ---
History of Present Illness H&P Date: 08/08/18 Chief Complaint: Lymphoma Patient on our service from previous Port-A-Cath placement earlier this year. The patient recently completed chemotherapy. Doing well at this time. No port related issues. She is interested port removal. Past Medical History Past Medical History: Cancer, Diabetes Mellitus, Osteoarthritis (OA), Seizure Disorder, Skin Disorder Additional Past Medical History / Comment(s): Hx Hodgkins Lymphoma; last chemo done 06/04; one seizure in 02/03 (? r/t Chemo) MACULAR DEGENERATION., HX OF COLON POLYPS,psoriasis History of Any Multi-Drug Resistant Organisms: None Reported Date of last positivie culture/infection: 03/13/17 MDRO Source:: finger Past Surgical History: Appendectomy Additional Past Surgical History / Comment(s): APPENDECTOMY (CHILD), D & C, COLONOSCOPY; Port R side of chest, bone marrow bx, lymph node bx. Past Anesthesia/Blood Transfusion Reactions: Family History of Problems w/ Anesthesia Additional Past Anesthesia/Blood Transfusion Reaction / Comment(s): SISTER-PONV Smoking Status: Former smoker - Past Family History Mother Family Medical History: No Reported History Medications and Allergies Home Medications Medication Instructions Recorded Confirmed Type metFORMIN HCL [Glucophage] 500 mg PO AC-BID 03/01/16 08/05/18 History Cholecalciferol [Vitamin D3] 1,000 unit PO BID 12/04/17 08/05/18 History Ferrous Sulfate [Iron (65 MG 325 mg PO DAILY 12/04/17 08/05/18 History Elemental)] Docusate [Colace] 100 mg PO BID #0 cap 01/22/18 08/05/18 Rx Aspirin EC [Ecotrin Low Dose] 81 mg PO BID 06/19/18 08/05/18 History Sennosides/Docusate Sodium 1 each PO HS 06/19/18 08/05/18 History [Senna-S Laxative Tablet] Vit C/E/Zn/Coppr/Lutein/Zeaxan 1 each PO BID 06/19/18 08/05/18 History [Preservision Areds 2 Softgel] Allergies Allergy/AdvReac Type Severity Reaction Status Date / Time cephalexin monohydrate AdvReac Unknown YEAST Verified 08/08/18 06:23 [From Keflex] INFECTION Surgical - Exam Vital Signs Temp Pulse Resp BP Pulse Ox 97.8 F 66 16 126/75 100 08/08/18 06:35 08/08/18 06:35 08/08/18 06:35 08/08/18 06:35 08/08/18 06:35 Physical exam: General: Well-developed, well-nourished HEENT: Normocephalic, sclerae nonicteric Abdomen: Nontender, nondistended Extremities: No edema Neuro: Alert and oriented Results - Labs Abnormal Lab Results - Last 24 Hours (Table) 08/08/18 Range/Units 06:38 POC Glucose (mg/dL) 104 H (75-99) mg/dL Assessment and Plan (1) Hodgkins lymphoma Narrative/Plan: Will proceed with Port-A-Cath removal at this time. Current Visit: No Status: Acute Priority: High Code(s): C81.90 - HODGKIN LYMPHOMA, UNSPECIFIED, UNSPECIFIED SITE SNOMED Code(s): 034543167
[2018-08-08] MEDS ORDERED: KETAMINE 10 MG/ML 20 ML VIAL ONE (07:40)
[2018-08-08] MEDS ORDERED: fentaNYL (PF) 50 MCG/ML 2 ML AMP ONE (07:40)
[2018-08-08] MEDS ORDERED: PROPOFOL 10 MG/ML 20 ML VIAL IV ONE (07:40)
[2018-08-08] MEDS ORDERED: MIDAZOLAM 2 MG/2 ML VIAL ONE (07:40)
[2018-08-08] MEDS ORDERED: NALOXONE 0.4 MG/ML 1 ML VIAL IV PRN (08:21)
--- NOTE | 2018-08-08 08:24 | P.OP ---
Date of Procedure: 08/08/18 Procedure(s) Performed: PREOPERATIVE DIAGNOSIS: Lymphoma POSTOPERATIVE DIAGNOSIS: Same PROCEDURE: Port-A-Cath removal SURGEON: Chance EBL: Minimal ANESTHESIA: Sedation COMPLICATIONS: None OPERATIVE PROCEDURE: Patient was placed in the supine position. The patient was sedated per anesthesia that time. The chest was prepped and draped in the usual sterile fashion. The skin was localized with Marcaine solution. The previous incision was re-incised using a scalpel. The port was easily excised using accommodation of blunt dissection sharp dissection and electrocautery. The subcutaneous tissues were reapproximated using 3-0 Vicryl sutures. The skin was reapproximated using 4-0 Monocryl sutures. Steri-Strips and sterile dressings were then applied. DISPOSITION: Stable to recovery room
[2018-08-08] MEDS ORDERED: ACETAMINOPHEN TAB 325 MG TAB PO ONE (09:00)
[2018-08-08 09:19] VITALS: BP 123/85; PULSE 75; RESP 18
== END 2018-08-08 09:40 | disposition home or self-care (01) ==
LOC: OR 06:09
PROVIDERS: ATTEND Surgery
DX: C81.90 Hodgkin lymphoma, unspecified, unspecified site (principal); Z45.2 Encounter for adjustment and management of vascular access device; E11.9 Type 2 diabetes mellitus without complications; Z79.84 Long term (current) use of oral hypoglycemic drugs; M19.90 Unspecified osteoarthritis, unspecified site; Z92.21 Personal history of antineoplastic chemotherapy; H35.30 Unspecified macular degeneration; L40.9 Psoriasis, unspecified; Z87.891 Personal history of nicotine dependence; Z79.82 Long term (current) use of aspirin; Z79.899 Other long term (current) drug therapy; Z88.1 Allergy status to other antibiotic agents
CPT/HCPCS: 36590; J2250; J1644; J1100; J2405; J2001; J3010; J2704

== ENCOUNTER 2018-09-12 08:59 | Day surgery (SDC) | payer MEDICARE ==
[2018-09-12 09:52] VITALS: PULSE 70; TEMP 97.7
[2018-09-12] MEDS ORDERED: ALPRAZolam 0.25 MG TAB PO ONE (10:12)
[2018-09-12 10:53] VITALS: RESP 18
[2018-09-12 11:59] VITALS: BP 120/70
--- NOTE | 2018-09-12 13:26 | US ---
EXAMINATION TYPE: US FNA thyroid each add lesion, US FNA thyroid each add lesion, US FNA thyroid firs t lesion DATE OF EXAM: 09/12/2018 COMPARISON: NONE HISTORY: Thyroid nodules. Maximal barrier technique was utilized. After informed consent, skin overlying the lesion was locali zed with ultrasound and the overlying skin prepped and draped. Ultrasound was utilized using sterile technique. Lidocaine was used for local anesthesia. Five passes with a 25-gauge needle were made int o the right nodule and two large left nodules aspirated specimens submitted to cytology. Following t he procedure hemostasis achieved. No immediate complication. The patient discharged in stable condi tion. IMPRESSION: STATUS POST ULTRASOUND GUIDED FINE NEEDLE ASPIRATION OF 3 DISCREET THYROID NODULES, PATHO LOGY IS PENDING. THIS PROCEDURE WAS PERFORMED BY THE UNDERSIGNED.
== END 2018-09-12 11:50 | disposition home or self-care (01) ==
LOC: RADPROMAIN 08:59
PROVIDERS: ATTEND Internal Medicine Hematology & Oncology
DX: E04.1 Nontoxic single thyroid nodule (principal); C81.98 Hodgkin lymphoma, unspecified, lymph nodes of multiple sites
CPT/HCPCS: 10005; 10006; 76942; 88173; 88305

== ENCOUNTER → 2018-12-01 | Outpatient (CLI) | payer MEDICARE ==
--- NOTE | 2018-12-02 11:40 | MM ---
Reason for exam: screening (asymptomatic). Last mammogram was performed 1 year ago. History: Patient is postmenopausal and is nulliparous. Took hormonal contraceptives for 5 years beginning at age 25. Took estrogen for 2 years beginning at age 54. Took progesterone for 2 years beginning at age 54. Physical Findings: A clinical breast exam by your physician is recommended on an annual basis and results should be correlated with mammographic findings. MG 3D Screening Mammo W/Cad Bilateral CC and MLO view(s) were taken. Prior study comparison: November 28, 2017, bilateral MG 3d screening mammo w/cad. August 24, 2016, bilateral MG screening mammo w CAD. The breast tissue is heterogeneously dense. This may lower the sensitivity of mammography. No suspicious abnormality. No significant changes when compared with prior studies. ASSESSMENT: Negative, BI-RAD 1 RECOMMENDATION: Routine screening mammogram of both breasts in 1 year.
== END | disposition home or self-care (01) ==
LOC: RADMAMWWP 09:22
PROVIDERS: ATTEND Family Medicine
DX: Z12.31 Encounter for screening mammogram for malignant neoplasm of breast (principal)
CPT/HCPCS: 77063; 77067

== ENCOUNTER → 2018-12-27 | Outpatient (CLI) | payer MEDICARE ==
--- NOTE | 2018-12-30 13:42 | PE ---
Nuclear medicine PET/CT HISTORY: Hodgkin's lymphoma, subsequent Patient received 10.3 mCi F-18 FDG intravenously in delayed scanning was performed from the skull bas e to the mid thighs. Localization and attenuation correction CT scan was performed. Comparison to prior nuclear medicine PET/CT 07/05/2018 neck and CHEST: There is no cervical, axillary, mediastinal, or hilar adenopathy. Shotty nodes are pr esent within the mediastinum and axilla, cervical regions. No suspicious hypermetabolic uptake. Thyro id nodules are present. No lung mass. No pleural or pericardial effusion. There is a hiatal hernia pr esent. ABDOMEN: Spleen is enlarged. No suspicious hypermetabolic uptake present. Uterus is bulky compatible with fibroids. No inguinal or pelvic adenopathy. Calcified gallstone is present and noted incidentall y. Small hypodensity present within the liver is stable. Osseous structures are stable. IMPRESSION: Essentially stable exam. No suspicious hypermetabolic uptake.
== END | disposition home or self-care (01) ==
LOC: RADPETMAIN 08:15
PROVIDERS: ATTEND Internal Medicine Hematology & Oncology
DX: C81.78 Other Hodgkin lymphoma, lymph nodes of multiple sites (principal)
CPT/HCPCS: 78815; A9552

== ENCOUNTER → 2019-07-25 | Outpatient (CLI) | payer MEDICARE ==
--- NOTE | 2019-07-28 16:56 | PE ---
EXAMINATION TYPE: PET CT fusion skull to thigh DATE OF EXAM: 07/25/2019 COMPARISON: PET/CT. 12/27/2018 and 07/05/2018 HISTORY: Hodgkin's lymphoma. Follow-up exam. Subsequent treatment strategy. TECHNIQUE: Following the intravenous administration of 10.7 mCi of F-18 FDG, whole body images are p erformed from the skull base to the midthigh. Images are reviewed on the computer in the coronal, ax ial, and sagittal planes. Reconstructed rotating images are created on independent workstation and r eviewed on the computer. A localization and attenuation correction CT is performed in conjunction w ith the PET scan. SCAN: Subsequent FINDINGS: Mediastinal background: 1.69 Abdominal background: 2.96 SKULL BASE AND NECK: Uptake of a right thyroid nodule measures 2.06 SUV. This measures approximately 4.0 cm in size. No additional suspicious hypermetabolic uptake. CHEST, MEDIASTINUM, AND HILAR REGION: No suspicious hypermetabolic uptake. ABDOMEN AND PELVIS: No suspicious hypermetabolic uptake. Multifocal colonic avidity likely relates to physiologic bowel excretion. OSSEOUS STRUCTURES: No suspicious hypermetabolic uptake. OTHER CT: Right axillary surgical clips are seen. Few coronary artery calcifications. Mild multilevel degenerative changes of the spine. Cholelithiasis is redemonstrated. Calcified degenerative uterine fibroids are also again seen. Moderate atheromatous change of the abdominal aorta. Splenomegaly remai ns with the spleen measuring 15.4 cm in longitudinal dimension. Benign 9 mm hepatic cyst in the right hepatic lobe. IMPRESSION: 1. No new hypermetabolic adenopathy within the chest, abdomen or pelvis. 2. Continued hypermetabolic uptake within the right thyroid nodule, previously biopsied. Correlate biopsy results. 3. Redemonstration of splenomegaly.
== END | disposition home or self-care (01) ==
LOC: RADPETMAIN 07:17
PROVIDERS: ATTEND Internal Medicine Hematology & Oncology
DX: R91.1 Solitary pulmonary nodule (principal); R16.1 Splenomegaly, not elsewhere classified; C81.78 Other Hodgkin lymphoma, lymph nodes of multiple sites
CPT/HCPCS: 78815; A9552

== ENCOUNTER → 2020-05-05 | Outpatient (CLI) | payer MEDICARE ==
--- NOTE | 2020-05-05 14:52 | US ---
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 4.6 X 2.5 x 4.0 cm isoechoic solid nodule at the mid/lower pole with well-defined margins; . Th is nodule is wider than tall and shows intranodular vascularity. Prior size: 4.9 x 4.1 x 2.8 cm LEFT: # of nodules measured on left: 2 1. 2.0 X 1.6 x 1.4 cm isoechoic solid nodule at the lower pole with well-defined margins; . This n odule is wider than tall and shows intranodular vascularity. Prior size: 2.3 x 1.6 x 1.9 cm 2. 1.3 X 1.2 x 1.1 cm isoechoic solid nodule at the mid pole with well-defined margins; . This nodu le is wider than tall and shows intranodular vascularity. Prior size: 1.8 x 1.6 x 1.2 cm ISTHMUS: # of nodules measured in the isthmus: 0 Bilateral neck scanned, no evidence of lymphadenopathy. IMPRESSION: Nonspecific thyroid nodularity as outlined above.
== END | disposition home or self-care (01) ==
LOC: RADUSWWP 14:01
PROVIDERS: ATTEND Nurse Practitioner Family
DX: E04.2 Nontoxic multinodular goiter (principal)
CPT/HCPCS: 76536

== ENCOUNTER → 2020-07-29 | Outpatient (CLI) | payer MEDICARE ==
--- NOTE | 2020-08-01 09:40 | PE ---
EXAMINATION TYPE: PET CT fusion skull to thigh DATE OF EXAM: 07/29/2020 COMPARISON: Prior PET/CT July 25, 2019 and older study December 27, 2018 HISTORY: Hodgkin lymphoma diagnosed 2018 above and below diaphragm with splenomegaly completed chemo therapy in fall 2018 TECHNIQUE: Following the intravenous administration of 11.58 mCi of F-18 FDG, whole body images are performed from the skull base to the midthigh. Images are reviewed on the computer in the coronal, a xial, and sagittal planes. Reconstructed rotating images are created on independent workstation and reviewed on the computer. A localization and attenuation correction CT is performed in conjunction with the PET scan. SCAN: Subsequent Scan FINDINGS: Mean SUV mediastinum: 0.75 Mean SUV liver: 2.05 SKULL BASE AND NECK: No new areas of abnormal hypermetabolic uptake. CHEST, MEDIASTINUM, AND HILAR REGION: Focus of increased uptake anterior left shoulder muscle axial i mage [address] correlate favor postinflammatory, max SUV is 3.67. ABDOMEN AND PELVIS: Nonspecific diffuse bowel uptake. Normal excretion. No new areas of abnormal hype rmetabolic uptake. OSSEOUS STRUCTURES: No new areas of abnormal hypermetabolic uptake. OTHER CT: Stable large right thyroid nodule near 4 cm axial image 63 remains a metabolic. Stable smal ler left thyroid nodule. Right axillary surgical clips redemonstrated. Scattered prominent but subcentimeter lymph nodes throu ghout the axillary region and the mediastinum, some borderline enlarged without abnormal hypermetabol ic uptake. Large dependent calcified gallstone in gallbladder again seen. Calcified lobulated fibroid uterus red emonstrated. Persistent stable splenomegaly. IMPRESSION: No convincing new or recurrent abnormal hypermetabolic uptake to suggest active lymphoma recurrence.
== END | disposition home or self-care (01) ==
LOC: RADPETMAIN 09:55
PROVIDERS: ATTEND Internal Medicine Hematology & Oncology
DX: C81.98 Hodgkin lymphoma, unspecified, lymph nodes of multiple sites (principal)
CPT/HCPCS: 78815; A9552

== ENCOUNTER → 2021-02-03 | Outpatient (CLI) | payer MEDICARE ==
--- NOTE | 2021-02-03 08:29 | US ---
EXAMINATION TYPE: US duplex aorta DATE OF EXAM: 02/03/2021 COMPARISON: NONE CLINICAL HISTORY: Z82.49 Family hx ischemic heart disease. family hx of AAA. EXAM MEASUREMENTS: Abdominal Aorta: Proximal: 2.5 x 2.6 cm Mid: 1.4 x 1.9 cm Distal: 1.2 cm Bifurcation: Right- 0.8 x 0.9 cm Left- 0.7 x 0.9 cm Limited visualization of distal Aorta, unable to get transverse measurement due to overlying bowel ga s. No AAA visualized in portions of Aorta seen. IMPRESSION: No definite abdominal aortic aneurysm in this limited study.
== END | disposition home or self-care (01) ==
LOC: RADUSWWP 06:55
PROVIDERS: ATTEND Family Medicine
DX: Z13.6 Encounter for screening for cardiovascular disorders (principal); I10 Essential (primary) hypertension
CPT/HCPCS: 93979

== ENCOUNTER → 2021-03-13 | Outpatient (CLI) | payer MEDICARE ==
--- NOTE | 2021-03-13 11:58 | US ---
EXAMINATION TYPE: US thyroid st tissue head/neck DATE OF EXAM: 03/13/2021 COMPARISON: US 05/05/2020 CLINICAL HISTORY: 75-year-old female E04.2 MULTINODULAR GOITER. TECHNIQUE: Multiple sonographic images of the thyroid gland are obtained. FINDINGS: GLAND SIZE: Right Lobe: 6.0 x 2.6 x 4.9 cm Overall Parenchyma: heterogenous Left Lobe: 4.3 x 1.9 x 1.8 cm Overall Parenchyma: homogeneous Isthmus Thickness: 0.6 cm NODULES RIGHT: # of nodules measured on right: 1 1. 4.7 X 2.6 x 4.4 cm, mid , primarily solid, hypoechoic nodule, which is wider than tall, with smo oth margins, without echogenic foci. Prior size: 4.6 x 2.5 x 4.0 cm LEFT: # of nodules measured on left: 2 1. 1.5 X 1.8 x 1.6 cm, mid , solid or almost completely solid, hypoechoic nodule, which is wider t candelario tall, with smooth margins, with echogenic foci. Prior size: 2.0 x 1.6 x 1.4 cm 2. 1.2 X 1.3 x 1.1 cm, upper, solid or almost completely solid, isoechoic nodule, which is wider th an tall, with smooth margins, without echogenic foci. Prior size: 1.3 x 1.2 x 1.1 cm ISTHMUS: # of nodules measured in the isthmus: 0 Bilateral neck scanned, no evidence of lymphadenopathy. IMPRESSION: 1. Multinodular goiter. Very minimal increase in size of the dominant right-sided solid nodule curren tly measuring 4.7 x 4.4 cm (versus 4.6 x 4.0 cm, previously). 2. The other 2 solid nodules in the left lobe have not significantly changed, measuring 1.8 and 1.3 c m each.
--- NOTE | 2021-03-16 14:18 | MM ---
Reason for exam: screening (asymptomatic). Last mammogram was performed 1 year ago. History: Patient is postmenopausal, history of other cancer, and is nulliparous. Took hormonal contraceptives for 5 years beginning at age 25. Took estrogen for 2 years beginning at age 54. Took progesterone for 2 years beginning at age 54. Physical Findings: A clinical breast exam by your physician is recommended on an annual basis and results should be correlated with mammographic findings. MG 3D Screening Mammo W/Cad Bilateral CC and MLO view(s) were taken. Prior study comparison: March 11, 2020, bilateral MG 3d screening mammo w/cad. December 01, 2018, bilateral MG 3d screening mammo w/cad. The breast tissue is heterogeneously dense. This may lower the sensitivity of mammography. No significant changes when compared with prior studies. ASSESSMENT: Benign, BI-RAD 2 RECOMMENDATION: Routine screening mammogram of both breasts in 1 year.
== END | disposition home or self-care (01) ==
LOC: RADMAMWWP 08:55
PROVIDERS: ATTEND Family Medicine
DX: Z12.31 Encounter for screening mammogram for malignant neoplasm of breast (principal); E04.2 Nontoxic multinodular goiter; Z85.9 Personal history of malignant neoplasm, unspecified; Z78.0 Asymptomatic menopausal state; Z79.3 Long term (current) use of hormonal contraceptives
CPT/HCPCS: 76536; 77063; 77067

== ENCOUNTER → 2021-08-25 | Outpatient (CLI) | payer MEDICARE ==
--- NOTE | 2021-08-28 07:50 | PE ---
EXAMINATION TYPE: PET CT fusion skull to thigh DATE OF EXAM: 08/25/2021 COMPARISON: Prior PET/CT July 29, 2020 and older studies. HISTORY: Hodgkin lymphoma diagnosed 2018 above and below diaphragm with splenomegaly completed chemo therapy in fall 2018 TECHNIQUE: Following the intravenous administration of 8.91 mCi of F-18 FDG, whole body images are p erformed from the skull base to the midthigh. Images are reviewed on the computer in the coronal, ax ial, and sagittal planes. Reconstructed rotating images are created on independent workstation and r eviewed on the computer. A localization and attenuation correction CT is performed in conjunction w ith the PET scan. Blood glucose level equals 95. SCAN: Subsequent Scan FINDINGS: Mean SUV mediastinum: 0.94 Mean SUV liver: 2.18 SKULL BASE AND NECK: No new areas of abnormal hypermetabolic uptake. CHEST, MEDIASTINUM, AND HILAR REGION: No new areas of abnormal hypermetabolic uptake. ABDOMEN AND PELVIS: Nonspecific diffuse bowel uptake is redemonstrated. Normal excretion. No new area s of abnormal hypermetabolic uptake. OSSEOUS STRUCTURES: No new areas of abnormal hypermetabolic uptake. OTHER CT: Stable large right thyroid nodule near 4 cm axial image 59 current study remains ametabolic . Stable smaller left thyroid nodule axial image 60. Right axillary surgical clips redemonstrated. Scattered prominent but subcentimeter lymph nodes throu ghout the axillary region and the mediastinum, some borderline enlarged without abnormal hypermetabol ic uptake. Intramuscular lipoma left pectoralis level axial image 76 is noted and stable in retrospec t. Large dependent calcified gallstone in gallbladder again seen. Stable hepatomegaly with stable hypode nse near 1.0 cm lesion right hepatic lobe axial image 118 and occasional benign calcifications throug hout the liver. Calcified lobulated fibroid uterus redemonstrated. Persistent stable mild splenomegal y. IMPRESSION: No convincing new or recurrent abnormal hypermetabolic enlarged adenopathy to suggest act naseem lymphoma recurrence.
== END | disposition home or self-care (01) ==
LOC: RADPETMAIN 09:45
PROVIDERS: ATTEND Internal Medicine Hematology & Oncology
DX: C81.98 Hodgkin lymphoma, unspecified, lymph nodes of multiple sites (principal)
CPT/HCPCS: 78815; A9552

== ENCOUNTER → 2021-09-22 | Outpatient (CLI) | payer MEDICARE ==
--- NOTE | 2021-09-22 09:47 | US ---
EXAMINATION TYPE: US thyroid st tissue head/neck DATE OF EXAM: 09/22/2021 COMPARISON: 03/13/2021 CLINICAL HISTORY: E04.2 MULTINODULAR GOITER. Multinodular thyroid with prior negative biopsy. GLAND SIZE: Right Lobe: 6.7 x 4.4 x 2.9 cm Overall Parenchyma: heterogenous Left Lobe: 4.9 x 1.4 x 1.6 cm Overall Parenchyma: heterogeneous Isthmus Thickness: 0.7 cm NODULES RIGHT: # of nodules measured on right: 1 1. 5.2 X 2.6 x 4.5 cm, lower mid, mixed cystic and solid, hypoechoic nodule, which is wider than ta ll, with lobulated or irregular margins, without echogenic foci. Prior size: 4.7 x 2.6 x 4.4 cm LEFT: # of nodules measured on left: 2 1. 2.0 X 1.4 x 1.3 cm, upper mid, solid or almost completely solid, hypoechoic nodule, which is wid er than tall, with lobulated or irregular margins, without echogenic foci. Prior size: 1.5 x 1.8 x 1.6 cm 2. 2.1 X 1.3 x 1.6 cm, lower mid, solid or almost completely solid, hypoechoic nodule, which is wi kevin than tall, with lobulated or irregular margins, without echogenic foci. Prior size: 1.2 x 1.3 x 1.1 cm ISTHMUS: # of nodules measured in the isthmus: 0 Bilateral neck scanned, no evidence of lymphadenopathy. Bilateral nodules seen IMPRESSION: Bilateral nonspecific thyroid nodules.
== END | disposition home or self-care (01) ==
LOC: RADUSWWP 08:55
PROVIDERS: ATTEND Family Medicine
DX: E04.2 Nontoxic multinodular goiter (principal)
CPT/HCPCS: 76536

== ENCOUNTER 2022-03-20 07:59 | Day surgery (SDC) | payer MEDICARE ==
[2022-03-15 15:28] VITALS: BMI 35.3
[~2022-03-20 07:59] MED LIST changes: -DEXAMETHASONE SOD PHOSPHATE 10 MG/ML 1 ML VIAL IV ONE; -HEPARIN SODIUM,PORCINE 5,000 UNIT/ML 1 ML VIAL SQ ONE; -HYDROmorphone 0.5 MG/0.5 ML SYRINGE IVP PRN; +LIDOCAINE 1% (10MG/ML) FOR IV START INTRADERMA PRN; -MIDAZOLAM (PF) 2 MG/2 ML VIAL IV PRN; -ONDANSETRON 4 MG/2 ML VIAL IVP ONE; -ceFAZolin IN SWFI 2 GM/20 ML SYRINGE IVP ONE
[2022-03-20 08:49] VITALS: RESP 16; TEMP 97.9
[2022-03-20 09:07] LABS: Glucose,Whole Blood 129 mg/dL (70-110)
[2022-03-20] MEDS ORDERED: PROPOFOL 10 MG/ML 20 ML VIAL IV ONE (09:08)
--- NOTE | 2022-03-20 09:10 | P.GSHP ---
History of Present Illness H&P Date: 03/20/22 Chief Complaint: Colon cancer screening 76-year-old female here today for colonoscopy. Patient's last colonoscopy was 4-5 years ago. That study was normal. Personal history of lymphoma. No family history of colon cancer. No bowel complaints. Past Medical History Past Medical History: Cancer, Diabetes Mellitus, Eye Disorder, Osteoarthritis (OA), Seizure Disorder, Skin Disorder, Thyroid Disorder Additional Past Medical History / Comment(s): thyroid enlarged, Hx Hodgkins Lymphoma- chemo done 2017; one seizure in 02/03 (? r/t Chemo) MACULAR DEGENERATION., HX OF COLON POLYPS, hx psoriasis History of Any Multi-Drug Resistant Organisms: None Reported Date of last positivie culture/infection: 03/13/17 MDRO Source:: finger Past Surgical History: Appendectomy Additional Past Surgical History / Comment(s): D & C, COLONOSCOPY; Port R side of chest/later removed, bone marrow biopsy Past Anesthesia/Blood Transfusion Reactions: Family History of Problems w/ Anesthesia, Motion Sickness Additional Past Anesthesia/Blood Transfusion Reaction / Comment(s): SISTER-PONV Smoking Status: Current every day smoker - Past Family History Mother Family Medical History: No Reported History Medications and Allergies Home Medications Medication Instructions Recorded Confirmed Type metFORMIN HCL [Glucophage] 1,000 mg PO BID 03/01/16 03/20/22 History Ferrous Sulfate [Iron (65 MG 325 mg PO DAILY 12/04/17 03/20/22 History Elemental)] Aspirin EC [Ecotrin Low Dose] 81 mg PO BID 06/19/18 03/20/22 History Vit C/E/Zn/Coppr/Lutein/Zeaxan 1 each PO BID 06/19/18 03/20/22 History [Preservision Areds 2 Softgel] ALPRAZolam [Xanax] 0.25 mg PO DAILY PRN 03/15/22 03/20/22 History Atorvastatin [Lipitor] 10 mg PO HS 03/15/22 03/20/22 History Cholecalciferol [Vitamin D3 (25 50 mcg PO BID 03/15/22 03/20/22 History Mcg = 1000 Iu)] Turmeric Root Extract [Turmeric] 500 mg PO QAM 03/15/22 03/20/22 History Ubidecarenone [Co Q-10] 300 mg PO DAILY 03/15/22 03/20/22 History Allergies Allergy/AdvReac Type Severity Reaction Status Date / Time cephalexin monohydrate AdvReac Unknown YEAST Verified 03/20/22 08:39 [From Keflex] INFECTION Surgical - Exam Vital Signs Temp Pulse Resp BP Pulse Ox 97.9 F 76 16 160/74 98 03/20/22 08:49 03/20/22 08:49 03/20/22 08:49 03/20/22 08:49 03/20/22 08:49 Physical exam: General: Well-developed, well-nourished HEENT: Normocephalic, sclerae nonicteric Abdomen: Nontender, nondistended Extremities: No edema Neuro: Alert and oriented Results - Labs Abnormal Lab Results - Last 24 Hours (Table) 03/20/22 Range/Units 08:56 POC Glucose (mg/dL) 129 H (70-110) mg/dL Assessment and Plan (1) Colon cancer screening Narrative/Plan: Will proceed with colonoscopy at this time Current Visit: Yes Status: Acute Code(s): Z12.11 - ENCOUNTER FOR SCREENING FOR MALIGNANT NEOPLASM OF COLON SNOMED Code(s): 095989984
--- NOTE | 2022-03-20 09:26 | P.PCN ---
Date of Procedure: 03/20/22 Procedure(s) Performed: PREOPERATIVE DIAGNOSIS: Colon cancer screening POSTOPERATIVE DIAGNOSIS: Normal exam PROCEDURE: Colonoscopy ANESTHESIA: MAC SURGEON: Raheel Fletcher M.D. SPECIMENS: None ENDOSCOPIC PROCEDURE: The patient was placed on the endoscopy table in the left decubitus position. The Olympus colonoscope was inserted into the anus and passed under direct visualization to the base of the cecum. The appendiceal orifice was visualized. From that point the scope was slowly withdrawn inspecti ng all surfaces carefully. There were no neoplastic inflammatory or polypoid lesions throughout the cecum, ascending, transverse, descending, sigmoid and rectum. There was no visibl diverticulosis noted. Digital rectal examination was normal. The patient was taken to the recovery room in stable condition per anesthesia guidelines. RECOMMENDATIONS: Resume diet. Follow-up colonoscopy 10 years.
[2022-03-20 09:47] VITALS: BP 133/83; PULSE 73
== END 2022-03-20 10:07 | disposition home or self-care (01) ==
LOC: ORWHC2ENDO 07:59
PROVIDERS: ATTEND Surgery
DX: Z12.11 Encounter for screening for malignant neoplasm of colon (principal); Z85.71 Personal history of Hodgkin lymphoma; E04.9 Nontoxic goiter, unspecified; Z86.69 Personal history of other diseases of the nervous system and sense organs; Z92.21 Personal history of antineoplastic chemotherapy; Z86.010 Personal history of colon polyps; L40.9 Psoriasis, unspecified; H35.30 Unspecified macular degeneration; Z86.19 Personal history of other infectious and parasitic diseases; Z90.49 Acquired absence of other specified parts of digestive tract; Z98.890 Other specified postprocedural states; F17.200 Nicotine dependence, unspecified, uncomplicated; Z79.84 Long term (current) use of oral hypoglycemic drugs; Z79.82 Long term (current) use of aspirin; Z79.899 Other long term (current) drug therapy; Z88.4 Allergy status to anesthetic agent
CPT/HCPCS: J2704; G0121

== ENCOUNTER → 2022-05-23 | Outpatient (CLI) | payer MEDICARE ==
--- NOTE | 2022-05-23 10:01 | BD ---
EXAMINATION TYPE: Axial Bone Density DATE OF EXAM: 05/23/2022 COMPARISON: NONE CLINICAL HISTORY: 76 year old Female. ICD-10 CODE: N95.1 MENOPAUSAL AND FEMALE CLIMACTERIC STATES Height: 61.5 Weight: 181.8 FRAX RISK QUESTIONS: Alcohol (3 or more units per day): no Family History (Parent hip fracture): no Glucocorticoids (More than 3mos): no (Ex: prednisone, prednisolone, methylprednisolone, dexamethasone, and hydrocortisone). History of Fracture in Adulthood: no Secondary Osteoporosis: 1. Type 1 Diabetes: no 2. Hyperthyroidism: no 3. Menopause before 45: no 4. Malnutrition: no 5. Chronic liver disease: no Rheumatoid Arthritis: no Current Tobacco Use: yes RISK FACTORS HISTORY OF: Surgery to Spine/Hip(right/left)/Wrist (right/left): no Family History of Osteoporosis: yes Active: no Diet low in dairy products/other sources of calcium: yes Postmenopausal woman: yes Lost more than 2 inches in height since high school: no MEDICATIONS: Additional History: EXAM MEASUREMENTS: Bone mineral densitometry was performed using the [employer] System. Bone mineral density as measured about the Lumbar spine is: ----- L1-L4(G/cm2): 0.872 T Score Values are as follows: ----- L1: -2.7 ----- L2: -2.9 ----- L3: -2.7 ----- L4: -2.2 ----- L1-L4: -2.6 Bone mineral density has: decreased -8.9 % since study of: 11.28.2017 Bone mineral density about the R hip (g/cm2): 0.916 Bone mineral density about the L hip (g/cm2): 0.897 T Score values are as follows: -----R Neck: -0.9 -----L Neck: -1.0 -----R Total: -0.3 -----L Total: -0.5 Bone mineral density has: decreased -0.1 % since study of: 11.28.2017 FRAX%s: The graph provided illustrates a 9.2% chance for a major osteoporotic fx and a 2.1% chance fo r the hips probability for fx in 10 years time. IMPRESSION: Osteoporosis (T Score less than -2.5). There is increased fracture risk and therapy is usually indicated based on age. Re-Screen 1-2 years. NOTE: T-SCORE=SD OF THE YOUNG ADULT MEAN.
--- NOTE | 2022-05-24 10:23 | MM ---
Reason for Exam: Screening (asymptomatic). Last mammogram was performed 1 year(s) and 3 month(s) ago. Patient History: Menarche at age 15. Patient has no children. Postmenopausal. Other cancer. Estrogen for 2 years from age 54 until age 56. Progesterone for 2 years from age 54 until age 56. Hormonal Contraceptives for 5 years from age 25 until age 29. Risk Values: Ira 5 year model risk: 2.0%. NCI Lifetime model risk: 4.5%. Prior Study Comparison: 12/01/2018 Bilateral Screening Mammogram, [facility]. 03/11/2020 Bilateral Screening Mammogram, [facility]. 03/13/2021 Bilateral Screening Mammogram, [facility]. Tissue Density: The breast tissue is heterogeneously dense. This may lower the sensitivity of mammography. Findings: Analyzed By CAD. A few small scattered benign-appearing round calcifications in the bilateral breasts are redemonstrated. There is no suspicious new group of microcalcifications or new suspicious mass in either breast. Overall Assessment: Benign, BI-RAD 2 Management: Screening Mammogram of both breasts in 1 year. Some consider bilateral breast ultrasound surveillance in patients with background dense tissue. A clinical breast exam by your physician is recommended on an annual basis and results should be correlated with mammographic findings. Electronically signed and approved by: Noble Peter M.D.
== END | disposition home or self-care (01) ==
LOC: RADMAMWWP 08:37
PROVIDERS: ATTEND Family Medicine
DX: Z12.31 Encounter for screening mammogram for malignant neoplasm of breast (principal); M81.0 Age-related osteoporosis without current pathological fracture; N95.1 Menopausal and female climacteric states
CPT/HCPCS: 77063; 77067; 77080

== ENCOUNTER → 2022-07-27 | Outpatient (CLI) | payer MEDICARE ==
--- NOTE | 2022-07-27 15:24 | PE ---
EXAMINATION TYPE: PET CT fusion skull to thigh DATE OF EXAM: 07/27/2022 COMPARISON: Prior PET 08/25/2021 and older studies. HISTORY: Hodgkin lymphoma diagnosed 2018 above and below diaphragm with splenomegaly completed chemo therapy in fall 2018. TECHNIQUE: Following the intravenous administration of 10.4 mCi of F-18 FDG, whole body images are p erformed from the skull base to the midthigh. Images are reviewed on the computer in the coronal, ax ial, and sagittal planes. Reconstructed rotating images are created on independent workstation and r eviewed on the computer. A localization and attenuation correction CT is performed in conjunction w ith the PET scan. Blood glucose level equals 122. SCAN: Subsequent Scan FINDINGS: Mean SUV mediastinum: 0.52 Mean SUV liver: 1.85 SKULL BASE AND NECK: No new areas of abnormal hypermetabolic uptake. CHEST, MEDIASTINUM, AND HILAR REGION: No new areas of abnormal hypermetabolic uptake. ABDOMEN AND PELVIS: Nonspecific diffuse bowel uptake is redemonstrated. Normal excretion. No new area s of abnormal hypermetabolic uptake. OSSEOUS STRUCTURES: No new areas of abnormal hypermetabolic uptake. OTHER CT: Stable large right thyroid nodule near 4 cm axial image 61 current study remains ametabolic . Stable smaller left thyroid nodule axial image 59. Right axillary surgical clips redemonstrated. Scattered prominent but subcentimeter lymph nodes throu ghout the axillary region and the mediastinum, some borderline enlarged without abnormal hypermetabol ic uptake. Intramuscular lipoma left pectoralis level axial image 78 is redemonstrated and stable in retrospect. Large dependent calcified gallstones in gallbladder are again seen. Stable hepatomegaly with stable h ypodense near 1.0 cm lesion right hepatic lobe axial image 125 and occasional benign calcifications t hroughout the liver. Calcified lobulated fibroid uterus redemonstrated. Persistent stable mild spleno megaly. IMPRESSION: No convincing new or recurrent abnormal hypermetabolic enlarged adenopathy to suggest act naseem lymphoma recurrence.
== END | disposition home or self-care (01) ==
LOC: RADPETMAIN 10:16
PROVIDERS: ATTEND Internal Medicine Hematology & Oncology
DX: C81.98 Hodgkin lymphoma, unspecified, lymph nodes of multiple sites (principal); R59.0 Localized enlarged lymph nodes
CPT/HCPCS: 78815; A9552

== ENCOUNTER → 2022-12-12 | Outpatient (CLI) | payer MEDICARE ==
--- NOTE | 2022-12-12 15:55 | US ---
EXAMINATION TYPE: US thyroid st tissue head/neck DATE OF EXAM: 12/12/2022 COMPARISON: US 09/22/21 CLINICAL INDICATION: Female, 77 years old with history of E04.2 NONTOXIC MULTINODULAR GOITER; Hx FNA both thyroid lobes. Goiter. GLAND SIZE: Right Lobe: 6.3 x 3.6 x 3.1 cm Overall Parenchyma: heterogenous Left Lobe: 5.0 x 2.0 x 1.8 cm Overall Parenchyma: heterogeneous Isthmus Thickness: 0.76 cm NODULES RIGHT: # of nodules measured on right: 1 1. 4.9 X 4.6 x 3.1 cm, lower mid, Prior size: 5.2 x 2.6 x 4.5 cm TIRADS Score: 2 TIRADS Category 2: Not Suspicious Composition: Mixed cystic and solid (1 point). Echogenicity: Hyperechoic or isoechoic (1 point). Shape: Wider than tall (0 points). Margin: Smooth (0 points). Echogenic foci: None or large comet-tail artifacts (0 points) Recommendation: No FNA LEFT: # of nodules measured on left: 2 1. 1.6 X 1.5 x 1.3 cm, upper-mid mid, Prior size: 2.0 x 1.4 x 1.3 cm TIRADS Score: 3 TIRADS Category 3: Mildly Suspicious Composition: Solid or almost completely solid (2 points). Echogenicity: Hyperechoic or isoechoic (1 point). Shape: Wider than tall (0 points). Margin: Smooth (0 points). Echogenic foci: None or large comet-tail artifacts (0 points) Recommendation: If >2.5cm: FNA; If >1.5cm: Follow up at 1,3,5 years 2. 2.3 X 2.0 x 1.7 cm, lower mid, Prior size: 2.1 x 1.3 x 1.6 cm TIRADS Score: 4 TIRADS Category 4: Moderately Suspicious Composition: Solid or almost completely solid (2 points). Echogenicity: Hypoechoic (2 points). Shape: Wider than tall (0 points). Margin: Smooth (0 points). Echogenic foci: None or large comet-tail artifacts (0 points) Recommendation: If >1.5cm: FNA; If >1cm: Follow up at 1,2, 3,5 years ISTHMUS: # of nodules measured in the isthmus: 0 Bilateral neck scanned, no evidence of lymphadenopathy. IMPRESSION: Right nodules as with recommendations as described above.
== END | disposition home or self-care (01) ==
LOC: RADUSWWP 09:54
PROVIDERS: ATTEND Family Medicine
DX: E04.2 Nontoxic multinodular goiter (principal)
CPT/HCPCS: 76536

== ENCOUNTER 2023-03-07 12:03 | Day surgery (SDC) | payer MEDICARE ==
[2023-03-07 13:32] VITALS: TEMP 98
[2023-03-07 14:29] LABS: Glucose,Whole Blood 152 mg/dL (70-110)
[2023-03-07 14:47] VITALS: BP 137/79; PULSE 87; RESP 18
--- NOTE | 2023-03-07 16:41 | US ---
ULTRASOUND GUIDED FNA THYROID BIOPSY: CLINICAL HISTORY: Request for a dominant right and dominant left thyroid nodule FNA FINDINGS: The procedure was explained to the patient. The risks, complications, benefits and alternatives were discussed and any questions were answered. Informed consent was obtained. Patient was placed supin e on the ultrasound table and prepped and draped in the usual sterile fashion. Utilizing a 25 gauge needle, five passes were made into the each of the requested thyroid nodules. Patient was stable throughout the procedure. Pathology is pending. All elements of maximal barrier technique were utilized. IMPRESSION: 1. Successful ultrasound guided FNA thyroid biopsy.
== END 2023-03-07 14:55 | disposition home or self-care (01) ==
LOC: RADPROMAIN 12:03
PROVIDERS: ATTEND Family Medicine
DX: E04.2 Nontoxic multinodular goiter (principal); E04.1 Nontoxic single thyroid nodule
CPT/HCPCS: 10005; 10006; 88173; 88305

== ENCOUNTER → 2023-06-24 | Outpatient (CLI) | payer MEDICARE ==
--- NOTE | 2023-06-24 11:47 | MM ---
Reason for Exam: Screening (asymptomatic). Last mammogram was performed 1 year(s) and 1 month(s) ago. Patient History: Menarche at age 15. Patient has no children. Postmenopausal. Other cancer. Estrogen for 2 years from age 54 until age 56. Progesterone for 2 years from age 54 until age 56. Hormonal Contraceptives for 5 years from age 25 until age 29. Risk Values: Ira 5 year model risk: 2.0%. NCI Lifetime model risk: 4.2%. Prior Study Comparison: 03/11/2020 Bilateral Screening Mammogram, [facility]. 03/13/2021 Bilateral Screening Mammogram, [facility]. 05/23/2022 Bilateral MG 3D screening mammo w/cad, [facility]. Tissue Density: The breast tissue is heterogeneously dense. This may lower the sensitivity of mammography. Findings: Analyzed By CAD. Stable fibroglandular tissue There is no suspicious group of microcalcifications or new suspicious mass. Overall Assessment: Negative, BI-RAD 1 Management: Screening Mammogram of both breasts in [address] [facility] will attempt to contact patient to return for supplemental views and ultrasound if indicated. Patient should continue monthly self-breast exams. A clinical breast exam by your physician is recommended on an annual basis. This exam should not preclude additional follow-up of suspicious palpable abnormalities. Note on Ira scores and lifetime risk: 1. A Ira score greater than 3% is considered moderate risk. If this is the case, consider specialist referral to assess eligibility for a risk reducing agent. 2. If overall lifetime risk for the development of breast cancer is 20% or higher, the patient may qualify for future screening with alternating mammogram and breast MRI. Electronically signed and approved by: Bro Rivera DO
== END | disposition home or self-care (01) ==
LOC: RADMAMWWP 09:49
PROVIDERS: ATTEND Family Medicine
DX: Z12.31 Encounter for screening mammogram for malignant neoplasm of breast (principal); Z78.0 Asymptomatic menopausal state
CPT/HCPCS: 77063; 77067

== ENCOUNTER → 2023-12-18 | Outpatient (CLI) | payer MEDICARE ==
--- NOTE | 2023-12-20 15:41 | CTL ---
EXAMINATION TYPE: CT Low Dose Lung DATE OF EXAM ORDERED: 12/18/2023 HISTORY: Nicotine dependence. Lung cancer screening CT DLP: [address] CTDI: 2.41 mGy Automated exposure control for dose reduction was used. SCREENING VISIT: Initial COMPARISON: None TECHNIQUE: Low dose computed tomography scan was performed through the chest at 1 mm thick sections a nd reconstructed images in the coronal plane at [address] DIAGNOSTIC QUALITY: Limited, but interpretable FINDINGS: LUNG NODULES: None. LUNGS: COPD: Severity: None Fibrosis: Severity: None Lymph nodes: Non- Other findings: The thyroid appears diffusely prominent. Visualization is limited. Consider follow-up with ultrasound. Mass within the right lobe is not excluded. RIGHT PLEURAL SPACE: Effusion: None Calcification: None Thickening: Minimal pleural thickening along the anterolateral right lung measuring 0.6 cm series 4 i mage 46. Pneumothorax: None LEFT PLEURAL SPACE: Effusion: None Calcification: None Thickening: None Pneumothorax: None HEART: Heart Size: Normal Coronary calcification: None Pericardial effusion: None OTHER FINDINGS: Upper abdomen: Normal Bony thorax: No Supraclavicular region: Normal Other: Ascending thoracic aorta at the level the main pulmonary artery measures 3.3 cm. The main pul monary artery at the bifurcation measures 2.8 cm. IMPRESSION: 1. No suspicious changes to suggest primary or metastatic neoplasm. 2. Exam is severely limited nearly nondiagnostic. 3. Enlarged thyroid. Recommend ultrasound of the thyroid for additional evaluation. FOLLOW UP CT CHEST RECOMMENDATION: Follow-up low-dose CT chest in one year. CT LUNG RAD: Lung-Rad 2 Benign Appearance or Behavior
== END | disposition home or self-care (01) ==
LOC: RADCTMAIN 12:13
PROVIDERS: ATTEND Family Medicine
DX: Z12.2 Encounter for screening for malignant neoplasm of respiratory organs (principal); E04.9 Nontoxic goiter, unspecified; Z87.891 Personal history of nicotine dependence
CPT/HCPCS: 71271

== ENCOUNTER → 2024-03-19 | Outpatient (CLI) | payer MEDICARE ==
--- NOTE | 2024-03-19 15:14 | US ---
EXAMINATION TYPE: US thyroid st tissue head/neck DATE OF EXAM: 03/19/2024 COMPARISON: CLINICAL INDICATION: Female, 78 years old with history of E04.1 THYROID NODULE; Follow up thyroid nod ule. Not on thyroid meds. GLAND SIZE: Right Lobe: 5.5 x 3.3 x 3.0 cm Overall Parenchyma: heterogeneous Left Lobe: 4.2 x 1.6 x 1.6 cm Overall Parenchyma: heterogeneous Isthmus Thickness: 0.9 cm NODULES RIGHT: # of nodules measured on right: 1 1. 4.2 X 3.7 x 3.1 cm, lower mid, solid or almost completely solid, hypoechoic nodule, which is wid er than tall, with smooth margins, without echogenic foci. Prior size: 4.9 x 4.6 x 3.1 cm TR 4 LEFT: # of nodules measured on left: 2 1. 1.4 X 1.2 x 1.0 cm, upper mid, solid or almost completely solid, hypoechoic nodule, which is wid er than tall, with smooth margins, without echogenic foci. TR 4 Prior size: 1.6 x 1.5 x 1.3 cm 2. 2.0 X 1.4 x 1.7 cm, lower mid, solid or almost completely solid, hypoechoic nodule, which is wi kevin than tall, with smooth margins, without echogenic foci.TR 4 Prior size: 2.3 x 2.0 x 1.7 cm ISTHMUS: # of nodules measured in the isthmus: 0 Bilateral neck scanned, no evidence of lymphadenopathy. IMPRESSION: Bilateral TR for nodules or reduced in size relative to prior exam. Correlate with prior biopsy repor t. Given reduction in size would recommend continued surveillance. 2017 ACR TI-RADS LEVEL: TR-RADS 4 - Moderately Suspicious: Follow if > 1 cm, FNA if > 1.5 cm, however , the nodules have reduced in size and has been previously biopsied correlate with prior biopsy repor t. *Highest TI-RADS level nodule reported
== END | disposition home or self-care (01) ==
LOC: RADUSWWP 14:31
PROVIDERS: ATTEND Family Medicine
DX: E04.1 Nontoxic single thyroid nodule (principal)
CPT/HCPCS: 76536

== ENCOUNTER → 2024-06-26 | Outpatient (CLI) | payer MEDICARE ==
--- NOTE | 2024-06-27 18:02 | BD ---
EXAMINATION TYPE: Axial Bone Density DATE OF EXAM: 06/26/2024 CLINICAL HISTORY: 78 years old Female. ICD-10 CODE: M810 AGE RELATED OSTEO , Additional History: Height: 60.5 in Weight: 183 lbs FRAX RISK QUESTIONS: Current Tobacco Use: yes MEDICATIONS: Osteoporosis Medications: yes Which medication: Fosamax How Lon year EXAM MEASUREMENTS: Bone mineral densitometry was performed using the [employer]. Bone mineral density as measured about the Lumbar spine is: ----- L1-L4(G/cm2): 1.030 T Score Values are as follows: ----- L1: -1.3 ----- L2: -1.8 ----- L3: -1.5 ----- L4: -0.8 ----- L1-L4: -1.3 Z Score Values are as follows: ----- L1: -0.1 ----- L2: -0.6 ----- L3: -0.3 ----- L4: 0.4 ----- L1-L4: -0.1 Bone mineral density has: Increased +18.1% since study of: 05/23/2022 Bone mineral density about the R hip (g/cm2): 1.016 Bone mineral density about the L hip (g/cm2): 0.970 T Score values are as follows: -----R Neck: -0.2 -----L Neck: -1.2 -----R Total: 0.1 -----L Total: -0.3 Z Score values are as follows: -----R Neck: 1.4 -----L Neck: 0.4 -----R Total: 1.5 -----L Total: 1.1 Bone mineral density has: Increased 3.7% since study of: 05/23/2022 FRAX%s: The graph provided illustrates a 10.3% chance for a major osteoporotic fx and a 2.8% chance f or the hips probability for fx in 10 years time. IMPRESSION: Normal (Values between +1 and -1 indicate normal bone mass). Consider repeating this study in 5 year s or sooner if there is some new clinical indication. NOTE: T-SCORE=SD OF THE YOUNG ADULT MEAN. [facility], Workstation: [facility], 06/27/2024 6:00 PM
--- NOTE | 2024-06-29 09:04 | MM ---
Reason for Exam: Screening (asymptomatic). Last screening mammogram was performed 12 month(s) ago. Patient History: Menarche at age 15. Patient has no children. Postmenopausal. Other cancer. Estrogen for 2 years from age 54 until age 56. Progesterone for 2 years from age 54 until age 56. Hormonal Contraceptives for 5 years from age 25 until age 29. Risk Values: Ira 5 year model risk: 2.0%. NCI Lifetime model risk: 4.0%. Prior Study Comparison: 03/13/2021 Bilateral Screening Mammogram, [facility]. 05/23/2022 Bilateral MG 3D screening mammo w/cad, [facility]. 06/24/2023 Bilateral MG 3D screening mammo w/cad, [facility]. Tissue Density: There are scattered areas of fibroglandular density. Findings: Analyzed By CAD. Right breast: There is no suspicious group of microcalcifications or new suspicious mass. Left breast: There is no suspicious group of microcalcifications or new suspicious mass. Overall Assessment: Negative, BI-RAD 1 Management: Screening Mammogram of both breasts in [address] [facility] will attempt to contact patient to return for supplemental views and ultrasound if indicated. Patient should continue monthly self-breast exams. A clinical breast exam by your physician is recommended on an annual basis. This exam should not preclude additional follow-up of suspicious palpable abnormalities. Note on Ira scores and lifetime risk: 1. A Ira score greater than 3% is considered moderate risk. If this is the case, consider specialist referral to assess eligibility for a risk reducing agent. 2. If overall lifetime risk for the development of breast cancer is 20% or higher, the patient may qualify for future screening with alternating mammogram and breast MRI. [facility], , 06/29/2024 9:01 AM. Electronically signed and approved by: Bro Rivera DO
== END | disposition home or self-care (01) ==
LOC: RADMAMWWP 10:09
PROVIDERS: ATTEND Family Medicine
DX: Z12.31 Encounter for screening mammogram for malignant neoplasm of breast (principal); Z78.0 Asymptomatic menopausal state; R92.323 Mammographic fibroglandular density, bilateral breasts
CPT/HCPCS: 77063; 77067; 77080

== ENCOUNTER → 2024-12-08 | Outpatient (CLI) | payer MEDICARE ==
--- NOTE | 2024-12-08 14:14 | CTL ---
EXAMINATION TYPE: CT Low Dose Lung DATE OF EXAM: 12/08/2024 12:46 PM COMPARISON: 12/18/2023. CLINICAL INDICATION: Female, 79 years old with history of Z12.2 SCREENING LUNG CA F17.210 CURRENT SMO KER; Current smoker, 1 ppd x 40 years, hx hodgkins lymphoma, history of tobacco use. TECHNIQUE: Multiple axial non-contrast scans were obtained from approximately the lung apices through the upper abdomen. Coronal and sagittal reformatted images were obtained. Low dose technique was uti lized. MIP were created on a separate workstation and submitted for review. CT DLP: 90.2 mGycm, Automated exposure control for dose reduction was used. CT Contrast: Contrast used: None Oral contrast used: None FINDINGS: Lack of intravenous contrast and low dose technique limits the evaluation of the vascular and soft ti ssue structures. LUNGS: No evidence of pulmonary fibrosis. No evidence of focal consolidation, pneumothorax or pleural effusion. Centrilobular emphysema changes. Nodules: RUL: None. RML: None. RLL: None. RAMON: None. LLL: None. AIRWAY: Patent and unremarkable. HEART: Size within normal limits. No significant coronary artery calcifications. MEDIASTINUM: No gross evidence of adenopathy. VASCULATURE: No aortic aneurysm. MUSCULOSKELETAL: No acute osseous abnormalities. Left intramuscular lipoma in the pectoralis major mu scle measuring 46 x 6 16 mm. SOFT TISSUES/LYMPH NODES: Large right thyroid nodule measuring up to 4.2 x 2.9 cm, not significantly changed from prior. Right axillary surgical clips present. LOWER NECK: No significant findings. UPPER ABDOMEN: Partially visualized gallstone in the gallbladder fossa. IMPRESSION: 1. No pulmonary nodules. 2. Mild emphysema. 3. Cholelithiasis. 4. Left pectoralis major intramuscular lipoma. 5. Right thyroid gland nodule similar prior. CT LUNG RAD AND CT CHEST RECOMMENDATION: Lung-Rad 1 Negative: Continue annual screening with LDCT in 12 months. S Modifier (other clinically significant findings): None Recommend smoking cessation (if current smoker), or continuation of smoking cessation (if prior smoke r). Annual screening for lung cancer with low-dose computed tomography is recommended in adults ages 55 to 77 years who have a 30 pack-year smoking history and currently smoke or have quit within the pa st 15 years. Screening should be discontinued once a person has not smoked for 15 years or develops a health problem that substantially limits life expectancy or the ability or willingness to have curat naseem lung surgery. Lung rads 2021 [email or web address] [email or web address], , 12/08/2024 2:12 PM
== END | disposition home or self-care (01) ==
LOC: RADCTMAIN 11:55
PROVIDERS: ATTEND Family Medicine
DX: Z12.2 Encounter for screening for malignant neoplasm of respiratory organs (principal); F17.210 Nicotine dependence, cigarettes, uncomplicated; E04.1 Nontoxic single thyroid nodule; K80.20 Calculus of gallbladder without cholecystitis without obstruction; D17.79 Benign lipomatous neoplasm of other sites; J43.2 Centrilobular emphysema
CPT/HCPCS: 71271